=== PATIENT | male | born 1970 | race Caucasian/White ===

== ENCOUNTER 2020-02-29 09:28 | Outpatient (REF) | payer OTHER, SELFPAY ==
[2020-02-29 11:56] LABS: Alanine Aminotransferase 21 U/L (0-40); Albumin Level 4.9 g/dL (3.5-5.0); Alkaline Phosphatase 42 U/L (39-117); Anion Gap 14 (12-20); Aspartate Amino Transferase 14 U/L (5-37); Bilirubin Total 0.5 mg/dL (0.0-1.0); Blood Urea Nitrogen 29 mg/dL (9-16); Calcium 9.6 mg/dL (8.4-10.2); Carbon Dioxide 26 mmol/L (22-29); Chloride 106 mmol/L (96-108); Cholesterol 138 mg/dL; Estimated Glomerular Filt Rate 47; Glucose Fasting 103 mg/dL (60-99); HDL Cholesterol 33 mg/dL; LDL Cholesterol Calculated 62 mg/dl; Potassium 5.2 mmol/l (3.3-5.1); Sodium 141 mmol/L (135-145); Total Protein 7.6 g/dL (6.5-8.0); Triglycerides 217 mg/dL
[2020-02-29 11:59] LABS: Estimated Average Glucose 117 mg/dL; Hemoglobin A1c % 5.7 %
== END 2020-02-29 09:29 | disposition home or self-care (01) ==
LOC: HO.HMGCLDS 09:28
PROVIDERS: PCP Nurse Practitioner Family; Visit Provider Nurse Practitioner Family
DX: E11.9 Type 2 diabetes mellitus without complications (principal); E03.9 Hypothyroidism, unspecified
CPT/HCPCS: 36415; 80053; 80061; 83036; 84443

== ENCOUNTER 2020-03-07 08:46 | Outpatient (REF) | payer OTHER, SELFPAY ==
[2020-03-07 11:27] LABS: Anion Gap 16 (12-20); Carbon Dioxide 23 mmol/L (22-29); Chloride 107 mmol/L (96-108); Potassium 4.5 mmol/l (3.3-5.1); Sodium 141 mmol/L (135-145)
== END 2020-03-07 08:47 | disposition home or self-care (01) ==
LOC: HO.HMGCLDS 08:46
PROVIDERS: PCP Nurse Practitioner Family; Visit Provider Nurse Practitioner Family
DX: E87.5 Hyperkalemia (principal)
CPT/HCPCS: 80051

== ENCOUNTER → 2020-08-08 07:57 | Outpatient (BNVA) | payer SELFPAY | PROVIDERS: PCP Nurse Practitioner Family; Visit Provider Internal Medicine | DX: Z02.79 Encounter for issue of other medical certificate (principal) ==

== ENCOUNTER 2020-09-26 09:34 | Outpatient (REF) | payer OTHER, SELFPAY ==
[2020-09-26 12:08] LABS: Alanine Aminotransferase 37 U/L (0-40); Albumin Level 4.9 g/dL (3.5-5.0); Alkaline Phosphatase 59 U/L (39-117); Anion Gap 13 (12-20); Aspartate Amino Transferase 20 U/L (5-37); Bilirubin Total 0.8 mg/dL (0.0-1.0); Blood Urea Nitrogen 28 mg/dL (9-16); Carbon Dioxide 28 mmol/L (22-29); Chloride 102 mmol/L (96-108); Cholesterol 191 mg/dL; Estimated Glomerular Filt Rate 51; Glucose Fasting 94 mg/dL (60-99); HDL Cholesterol 41 mg/dL; LDL Cholesterol Calculated 90 mg/dl; Potassium 5.4 mmol/L (3.3-5.1); Sodium 138 mmol/L (135-145); Total Protein 7.7 g/dL (6.5-8.0); Triglycerides 302 mg/dL
[2020-09-26 12:09] LABS: TSH reflex Free T4 2.52 uIU/mL (0.32-4.0)
[2020-09-26 12:35] LABS: Estimated Average Glucose 128 mg/dL; Hemoglobin A1c % 6.1 %
[2020-09-26 12:48] LABS: Creatinine Urine 118.52 mg/dL; Microalbum/Creatinine Ratio Ur 6.7 ug/mg cr
== END 2020-09-26 09:35 | disposition home or self-care (01) ==
LOC: HO.HMGCLDS 09:34
PROVIDERS: PCP Nurse Practitioner Family; Visit Provider Nurse Practitioner Family
DX: E11.9 Type 2 diabetes mellitus without complications (principal); I10 Essential (primary) hypertension; Z80.42 Family history of malignant neoplasm of prostate
CPT/HCPCS: 36415; 80053; 80061; 82043; 83036; 84153; 84443

== ENCOUNTER → 2021-08-07 09:54 | Outpatient (BNVA) | payer SELFPAY | PROVIDERS: PCP Nurse Practitioner Family; Visit Provider Internal Medicine | DX: Z02.79 Encounter for issue of other medical certificate (principal) ==

== ENCOUNTER → 2021-08-16 10:03 | Outpatient (BNVA) | payer OTHER, SELFPAY | PROVIDERS: PCP Nurse Practitioner Family; Visit Provider Internal Medicine | DX: Z01.810 Encounter for preprocedural cardiovascular examination (principal); I44.1 Atrioventricular block, second degree; I10 Essential (primary) hypertension | CPT/HCPCS: 93005; 99202 ==

== ENCOUNTER 2021-09-20 11:53 | Outpatient (REF) | payer OTHER, SELFPAY ==
[2021-09-20 14:05] LABS: Alanine Aminotransferase 29 U/L (0-40); Albumin Level 4.6 g/dL (3.5-5.0); Alkaline Phosphatase 66 U/L (39-117); Anion Gap 13 (12-20); Aspartate Amino Transferase 17 U/L (5-37); Bilirubin Total 0.7 mg/dL (0.0-1.0); Blood Urea Nitrogen 25 mg/dL (9-16); Calcium 9.7 mg/dL (8.4-10.2); Carbon Dioxide 27 mmol/L (22-29); Chloride 103 mmol/L (96-108); Cholesterol 135 mg/dL; Estimated Glomerular Filt Rate 48; Glucose Fasting 97 mg/dL (60-99); HDL Cholesterol 31 mg/dL; LDL Cholesterol Calculated 46 mg/dl; Potassium 4.7 mmol/L (3.3-5.1); Sodium 138 mmol/L (135-145); Total Protein 7.5 g/dL (6.5-8.0); Triglycerides 293 mg/dL
[2021-09-20 14:08] LABS: Estimated Average Glucose 126 mg/dL; Hemoglobin A1C 163.9103 umol/L
[2021-09-20 14:25] LABS: Creatinine Urine 167.94 mg/dL; Microalbum/Creatinine Ratio Ur 5.9 ug/mg cr
[2021-09-20 14:26] LABS: Appearance Urine CLEAR; Color Urine YELLOW; Glucose Urine UA NEG (NEG); Leukocyte Esterase Urine NEG (NEG); Nitrite Urine NEG (NEG); PH 6.5 (5.0-8.0); Urine Blood NEG (NEG); Urine Ketones NEG (NEG); Urine Protein NEG (NEG-TRACE)
[2021-09-20 14:28] LABS: Prostate Specific Antigen Scr 0.66 ng/mL (<0.05-4.0); TSH reflex Free T4 2.17 uIU/mL (0.32-4.0)
== END 2021-09-20 11:54 | disposition home or self-care (01) ==
LOC: HO.HMGCLDS 11:53
PROVIDERS: Visit Provider Nurse Practitioner Family
DX: Z00.00 Encounter for general adult medical examination without abnormal findings (principal); E11.9 Type 2 diabetes mellitus without complications; Z13.220 Encounter for screening for lipoid disorders; Z12.5 Encounter for screening for malignant neoplasm of prostate; Z13.29 Encounter for screening for other suspected endocrine disorder; Z80.42 Family history of malignant neoplasm of prostate
CPT/HCPCS: 36415; 80053; 80061; 81003; 82043; 83036; 84153; 84443

== ENCOUNTER → 2021-10-06 09:30 | Outpatient (REF) | payer OTHER, SELFPAY ==
--- NOTE | 2021-10-06 09:34 | CA_ITS ---
Acquisition Time: 2021-10-06 10:46:31 Total Exercise Time: 00:09:29 Test Indications: ABN EKG, PREOP Medications: SEE CHART Protocol: JANI Max HR: 157 BPM 92% of Pred: 170 BPM Max BP: 172/082 mmHG Max Work Load: 10.8 METS Exercise stress test with exercise 9 min 29 sec of Jani protocol, achieving 92% MPHR, 10.8 METS, without anginal symptoms, with report of knee discomfort, with normotensive and normal chronotropic response to exercise, without EKG changes meeting criteria for ischemia. Test reviewed with Dr Morales. Referred By: Tio López Overread By: ALLEGRA LAWRENCE
--- NOTE | 2021-10-06 09:34 | HM_ITS ---
Conclusion: 1. Patient was monitored for total period of 3 days and 5 hours 2. Baseline was normal sinus rhythm with average heart of 86 beats per minute 3. No significant pauses or bradycardia noted 4. Couple of episodes of Mobitz type 1 second-degree AV block noted 5. Very rare ectopy 6. No patient reported symptoms MTDD
--- NOTE | 2021-10-06 09:34 | CA_ITS ---
Transthoracic Echocardiogram Patient (Last, First, Middle): Francisco Grewal, Gender: Male Date of : 1970 Age: 51 Procedure Date: 10/06/2021 Procedure Type: Transthoracic Echocardiogram Location: OP Height: 175.26 cm Weight: 108.86 kg BSA: 2.23 m2 Heart Rate: bpm BP: 130 / 74 mmHg [place] Supervisor: CLARENCE Hernandez MD: Tio Lpóez MD Petrographer: Corky Morales MD Symptoms: I44.1 - Atrioventricular block, second degree Study Quality: Good ECG Rhythm: Sinus Conclusions: - 1. Normal LV systolic function with mild LVH with grade 1 diastolic dysfunction with possible basal inferior wall motion abnormality 2. Normal cardiac valvular Doppler is 3. Mildly dilated ascending aorta at 3.7 cm 4. Normal RV systolic pressure 5. No gross pericardial effusion Findings Left Ventricle Normal left ventricular size and systolic function. There is mildly increased left ventricular wall thickness. The visually estimated ejection fraction is between 55-60%. Spectral Doppler is indicative of an impaired relaxation filling pattern. E/E prime ratio is <8, consistent with normal filling pressures. Evidence suggests grade I (mild) diastolic dysfunction. Wall Motion Rest Echo Findings The basal inferior segment is hypokinetic. All other scored wall segments showed normal motion. Right Ventricle Normal right ventricular cavity size and systolic function. Atria The left atrium is likely dilated. There is no evidence of interatrial shunt. The right atrium is normal in size. Aortic Valve There is mild calcification of the aortic valve. There is no aortic valve stenosis. There is no aortic valve regurgitation. Mitral Valve Normal mitral valve structure and function. There is trace mitral valve regurgitation. There is no mitral valve stenosis. Pulmonic Valve The pulmonic valve was not well visualized. Tricuspid Valve Likely normal tricuspid valve structure and function. There is trace tricuspid valve regurgitation. The right ventricular systolic pressure is normal. The right ventricular systolic pressure is 27 mmHg. Normal right atrial pressure. There is no evidence of pulmonary hypertension. Great Vessels The pulmonary artery was not well visualized. There is mild dilatation of the ascending aorta measuring 3.70 cm. Venous The inferior vena cava is normal in size and collapses greater than 50% with inspiration. Pericardium/Pleural There is no evidence of pericardial effusion. Prior Study Comparison No prior study available for comparison. Measurements 2D Linear Measurements IVSd: 1.20 0.6-0.9/0.6-1.0 cm LVIDd: 5.08 3.9-5.3/4.2-5.9 cm LVIDd Index: 2.28 2.4-3.2/2.2-3.1 cm/m2 LVIDs: 3.55 2.0-3.6 cm LVPWd: 1.15 0.7-1.1 cm LA Diam: 3.90 2.7-3.8/3.0-4.0 cm LAIDs Index: 1.75 1.5-2.3 cm/m2 LV Mass: 290.24 67-162/88-224 g LV Mass Index: 130.15 43-95/49-115 g/m2 LVOT Diam: 2.20 3.0+(-)1.3 cm 2D Systolic Function EF 4C: 62.00 >55% EF 2C: 52.20 >55% EF BiP: 57.60 >55% Mitral Valve MV Pk E: 0.57 MV PK A: 0.75 MV Decel Time: 217.00 E/A: 0.80 E'Lateral: 7.51 E'Medial: 6.20 E/E' Med: 9.30 E/E' Lat: 7.60 PHT: 63.00 MVA PHT: 3.49 Decel [place]: 2.65 Aortic Valve AoV Pk Ko: 1.56 AoV Mn Ko: 1.11 AoV VTI: 0.28 AoV Pk Grad: 10.00 Aov Mn Grad: 5.00 RODNEY Cont.VTI: 2.49 LVOT LVOT Pk Ko: 1.04 LVOT Mn Ko: 0.64 LVOT VTI: 0.19 LVOT Pk Grad: 4.00 LVOT Mn Grad: 2.00 LVOT Diam: 2.20 LVOT Area: 3.80 Diastolic Function MV Pk E: 0.57 MV Pk A: 0.75 E/A: 0.80 E'Medial: 6.20 E/E' Med: 9.30 E' Laterial: 7.51 E/E' Lat: 7.60 Right Ventricle TAPSE (mm): 22.30 TVS' Ko: 12.00 Tricuspid Valve TR Pk Ko: 2.19 TR Pk Grad: 19.00 RA Press: 8.00 RVSP: 27.00 Great Vessels Aorta Sinus of Valsalva: 3.51 2.0-3.[address] [place]: 3.12 1.7-3.4 cm Ao Asc: 3.70 2.1-3.4 cm Ao Arch: 3.10 Updated in Other Vendor System with Status of Final Corky Morales MD electronically signed on 10/07/2021 2:36:55 PM with status of Final
== END ==
LOC: HO.CARD 09:30
PROVIDERS: PCP Nurse Practitioner Family; Visit Provider Internal Medicine
DX: I44.1 Atrioventricular block, second degree (principal)
CPT/HCPCS: 93017; 93242; 93306

== ENCOUNTER → 2021-10-19 10:03 | Outpatient (BNVA) | payer OTHER, SELFPAY | PROVIDERS: PCP Nurse Practitioner Family; Referring Provider Nurse Practitioner Family; Visit Provider Internal Medicine | DX: Z01.810 Encounter for preprocedural cardiovascular examination (principal); I44.1 Atrioventricular block, second degree; I10 Essential (primary) hypertension; Z79.899 Other long term (current) drug therapy | CPT/HCPCS: 99212 ==

== ENCOUNTER 2022-02-22 09:34 | Outpatient (REF) | payer OTHER, SELFPAY ==
[2022-02-22 11:38] LABS: MANUAL DIFF FLAG NO
[2022-02-22 11:43] LABS: Basophils Percent Auto 0.3 % (0-2); Eosinophils Absolute Auto 0.2 X10*3/uL (0.0-0.4); Eosinophils Percent Auto 2.7 % (0-4); Hemoglobin 14.7 g/dl (14.0-18.0); Imm Gran Abs Auto 0.03 X10*3/uL (0.00-0.03); Imm Gran Pct Auto 0.4 % (0.0-0.4); Lymphocytes Absolute Auto 1.8 X10*3/uL (1.2-4.9); Lymphocytes Percent Auto 22.3 % (20-40); Mean Corpuscular HGB Conc 33.4 g/dl (31.0-36.0); Mean Corpuscular Hemoglobin 28.3 pg (27.0-33.0); Mean Corpuscular Volume 84.6 fL (80.0-98.0); Mean Platelet Volume 9.5 fL (9.4-12.4); Monocytes Absolute Auto 1.2 X10*3/uL (0.1-1.2); Monocytes Percent Auto 14.5 % (2-11); Neutrophils Absolute Auto 4.7 x10*3/uL (2.0-8.3); Neutrophils Percent Auto 59.8 % (45-73); Platelet Count 210 X10*3/uL (160-400); Red Cell Distribution Width 12.6 % (11.0-16.0); White Blood Count 7.9 X10*3/uL (4.8-10.8)
[2022-02-22 11:57] LABS: Appearance Urine Clear; Color Urine Yellow; Glucose Urine UA Negative (Negative); Leukocyte Esterase Urine Negative (Negative); Nitrite Urine Negative (Negative); PH 6.5 (5.0-9.0); Urine Blood Negative (Negative); Urine Ketones Negative (Negative); Urine Protein Negative (Neg-Trace)
[2022-02-22 11:59] LABS: Estimated Average Glucose 134 mg/dL; Hemoglobin A1c % 6.3 %
[2022-02-22 12:07] LABS: Alanine Aminotransferase 47 U/L (0-40); Albumin Level 4.7 g/dL (3.5-5.0); Alkaline Phosphatase 62 U/L (39-117); Anion Gap 15 (12-20); Aspartate Amino Transferase 23 U/L (5-37); Bilirubin Total 0.5 mg/dL (0.0-1.0); Blood Urea Nitrogen 21 mg/dL (9-16); Calcium 9.4 mg/dL (8.4-10.2); Carbon Dioxide 27 mmol/L (22-29); Chloride 102 mmol/L (96-108); Cholesterol 159 mg/dL; Estimated Glomerular Filt Rate 56; Glucose Fasting 118 mg/dL (60-99); HDL Cholesterol 33 mg/dL; Potassium 4.5 mmol/L (3.3-5.1); Sodium 139 mmol/L (135-145); Total Protein 7.3 g/dL (6.5-8.0); Triglycerides 424 mg/dL
[2022-02-22 12:31] LABS: TSH reflex Free T4 1.26 uIU/mL (0.32-4.0)
== END 2022-02-22 09:35 | disposition home or self-care (01) ==
LOC: HO.HMGCLDS 09:34
PROVIDERS: PCP Nurse Practitioner Family; Visit Provider Nurse Practitioner Family
DX: E11.9 Type 2 diabetes mellitus without complications (principal)
CPT/HCPCS: 36415; 80053; 80061; 81003; 83036; 84443; 85025

== ENCOUNTER → 2022-06-27 08:52 | Outpatient (BNVA) | payer OTHER, SELFPAY | PROVIDERS: PCP Nurse Practitioner Family; Referring Provider Nurse Practitioner Family; Visit Provider Internal Medicine | DX: I44.1 Atrioventricular block, second degree (principal); I10 Essential (primary) hypertension | CPT/HCPCS: 93005; 99212 ==

== ENCOUNTER 2022-11-22 11:47 | Outpatient (REF) | payer OTHER, SELFPAY ==
[2022-11-22 13:51] LABS: MANUAL DIFF FLAG NO
[2022-11-22 13:56] LABS: Appearance Urine Clear; Color Urine Yellow; Glucose Urine UA Negative (Negative); Leukocyte Esterase Urine Negative (Negative); Nitrite Urine Negative (Negative); Specific Gravity - Urine 1.015 (1.005-1.025); Urine Blood Negative (Negative); Urine Ketones Negative (Negative); Urine Protein Negative (Neg-Trace)
[2022-11-22 14:07] LABS: Basophils Percent Auto 0.4 % (0-2); Eosinophils Absolute Auto 0.2 X10*3/uL (0.0-0.4); Eosinophils Percent Auto 2.5 % (0-4); Hemoglobin 14.4 g/dl (14.0-18.0); Imm Gran Abs Auto 0.04 X10*3/uL (0.00-0.03); Imm Gran Pct Auto 0.5 % (0.0-0.4); Lymphocytes Absolute Auto 1.8 X10*3/uL (1.2-4.9); Lymphocytes Percent Auto 24.2 % (20-40); Mean Corpuscular HGB Conc 33.5 g/dl (31.0-36.0); Mean Corpuscular Hemoglobin 28.6 pg (27.0-33.0); Mean Corpuscular Volume 85.5 fL (80.0-98.0); Mean Platelet Volume 9.9 fL (9.4-12.4); Monocytes Absolute Auto 0.7 X10*3/uL (0.1-1.2); Monocytes Percent Auto 9.1 % (2-11); Neutrophils Absolute Auto 4.7 x10*3/uL (2.0-8.3); Neutrophils Percent Auto 63.3 % (45-73); Platelet Count 222 X10*3/uL (160-400); Red Blood Count 5.03 X10*6/uL (4.60-5.80); Red Cell Distribution Width 13.2 % (11.0-16.0); White Blood Count 7.5 X10*3/uL (4.8-10.8)
[2022-11-22 14:22] LABS: Estimated Average Glucose 131 mg/dL; Hemoglobin A1c % 6.2 %
[2022-11-22 14:35] LABS: Creatinine Urine 101.43 mg/dL; Microalbum/Creatinine Ratio Ur 9.8 ug/mg cr
[2022-11-22 14:45] LABS: Alanine Aminotransferase 40 U/L (0-40); Albumin Level 4.5 g/dL (3.5-5.0); Alkaline Phosphatase 54 U/L (39-117); Anion Gap 14 (12-20); Aspartate Amino Transferase 22 U/L (5-37); Bilirubin Total 0.8 mg/dL (0.0-1.0); Blood Urea Nitrogen 21 mg/dL (9-16); Calcium 10.1 mg/dL (8.4-10.2); Carbon Dioxide 25 mmol/L (22-29); Chloride 103 mmol/L (96-108); Cholesterol 196 mg/dL; Estimated Glomerular Filt Rate > 60; Glucose Fasting 107 mg/dL (60-99); HDL Cholesterol 31 mg/dL; Potassium 4.1 mmol/L (3.3-5.1); Sodium 138 mmol/L (135-145); TSH reflex Free T4 2.04 uIU/mL (0.32-4.0); Total Protein 7.2 g/dL (6.5-8.0); Triglycerides 638 mg/dL
[2022-11-22 14:54] LABS: Prostate Specific Antigen Scr 0.85 ng/mL (<0.05-4.0)
== END 2022-11-22 11:48 | disposition home or self-care (01) ==
LOC: HO.HMGCLDS 11:47
PROVIDERS: PCP Nurse Practitioner Family; Visit Provider Nurse Practitioner Family
DX: E11.9 Type 2 diabetes mellitus without complications (principal); I10 Essential (primary) hypertension; Z12.5 Encounter for screening for malignant neoplasm of prostate
CPT/HCPCS: 36415; 80053; 80061; 81003; 82043; 83036; 84153; 84443; 85025

== ENCOUNTER 2023-04-23 07:25 | Day surgery (SDC) | payer OTHER, SELFPAY ==
[2023-04-17 14:33] VITALS: BMI 37.4
--- NOTE | 2023-04-22 09:01 | P.CONAN_ITS ---
Documented by User: Vashti Jovel NP 04/22/23 09:03 HPI - Anesthesia Eval Consult details Narrative: 52yo M for Colonoscopy [facility] [place] cardiology eval 06/2022 for preop shoulder optimized PMFSH Active Problems Active Problems: All Active Problems (Updated 04/17/23 @ 14:33 by Clare Hawthorne RN) Prostate cancer screening (Acute) Screening for colon cancer (Acute) Physical exam (Acute) Preoperative cardiovascular examination (Acute) Second degree heart block (Acute) Family hx of prostate cancer (Acute) Diabetes (Acute) Hypertension (Acute) Hyperkalemia (Acute) Essential hypertension (Acute) Past Medical History Medical History (Updated 04/17/23 @ 14:33 by Clare Hawthorne RN) Diabetes Hypothyroid Elevated cholesterol Fatty liver CKD (chronic kidney disease) Essential hypertension Family History Family History Father Depression Cancer of prostate Mental health disorder Mother Cancer Leukemia Maternal Grandfather No problems noted. Maternal Grandmother No problems noted. Paternal Grandfather No problems noted. Paternal Grandmother No problems noted. 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 [employer] Current occupational exposures/hazards: Yes Cognitive needs: No Hearing needs: No Vision needs: No Meds Allergies Allergy/AdvReac Type Severity Reaction Status Date / Time No Known Allergies Allergy Verified 09/06/22 14:44 Home Medications Medication Instructions Recorded Confirmed Last Taken Type carvedilol 12.5 mg tablet 12.5 mg PO BID 08/16/21 04/17/23 Unknown History Exam Height,Weight and Vital Signs: Height 5 ft 9 in Weight 114.759 kg Pertinent Lab Results Pertinent Lab Results: Laboratory Tests 11/22/22 11:53 WBC 7.5 Hgb 14.4 Hct 43.0 Plt Count 222 Sodium 138 Potassium 4.1 Chloride 103 Carbon Dioxide 25 BUN 21 H Creatinine 1.24 Narrative Narrative: EKG 06/2022 sinus rhythm at 84/Min; no significant ST-T changes and otherwise unremarkable. Normal [place] and corrected QT ECHO 2021 Conclusions: - 1. Normal LV systolic function with mild LVH with grade 1 diastolic dysfunction with possible basal inferior wall motion abnormality 2. Normal cardiac valvular Doppler is 3. Mildly dilated ascending aorta at 3.7 cm 4. Normal RV systolic pressure 5. No gross pericardial effusion Assessment and Plan Assessment Anesthesia Assessment: Chart Reviewed Documented by User: Quique Hidalgo MD 04/23/23 08:07 [facility] Past Medical History Medical History (Updated 04/17/23 @ 14:33 by Clare Hawthorne RN) Diabetes Hypothyroid Elevated cholesterol Fatty liver CKD (chronic kidney disease) Essential hypertension Family History Family History Father Depression Cancer of prostate Mental health disorder Mother Cancer Leukemia Maternal Grandfather No problems noted. Maternal Grandmother No problems noted. Paternal Grandfather No problems noted. Paternal Grandmother No problems noted. 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 Current occupational exposures/hazards: Yes Cognitive needs: No Hearing needs: No Vision needs: No Meds Allergies Allergy/AdvReac Type Severity Reaction Status Date / Time No Known Allergies Allergy Verified 09/06/22 14:44 Home Medications Medication Instructions Recorded Confirmed Last Taken Type carvedilol 12.5 mg tablet 12.5 mg PO BID 08/16/21 04/17/23 Unknown History Exam Airway Mallampati Class: III TM Dist: >3cm Neck ROM: Full Assessment and Plan Assessment Anesthesia Assessment: Anesthesia Plan Discussed Final Anesthetic Review Family History of Problems with Anesthesia: No History of Problems with Anesthesia: No NPO: Yes ASA Class: III Final Preanesthetic Review: No Changes in Pt Med Stat, Meds/Allgs Chart Reviewed, Consent Obtained/Reviewed and Anes Risks/Benef Reviewed Patient Risk: Intermediate Procedure Risk: Low Anesthetic Plan Anesthetic Plan: MAC: Disposition: Standard PACU
--- NOTE | 2023-04-23 08:03 | MHC.SHP ---
Pre-Procedural Eval Section A Date of Service: 04/23/23 Section B Chief Complaint: screening Relevant Family History (Specify if Yes): No Relevant Social History: None Present Medications: see Short Stay Collaborative assessment Medical History: Significant History (Diabetes Hypothyroid Elevated cholesterol Fatty liver CKD (chronic kidney disease) Essential hypertension) History of Previous Operations: Relevant previous surgery/procedure and date(s) (nasla surgery) Allergies: Allergies Allergy/AdvReac Type Severity Reaction Status Date / Time No Known Allergies Allergy Verified 09/06/22 14:44 Review of Systems Sugical H&P ROS: Negative: Constitution, Cardiovascular, Respiratory, Neurological, Psychiatric, Hem-Onc, Allergic/Immunologic, Gastrointestinal, Genitourinary, Musculoskeletal, Integumentary, Endocrine and Eyes/Ears/Nose/Throat Exam Surgical H&P Exam: Normal: HEENT, Normal: Heart, Normal: Lungs, Normal: Extremities, Normal: Abdomen, Normal: Skin and Normal: Neurological Plan Diagnosis/Plan: Unchanged I have reviewed the history and physical and performed a pertinent physical examination on my patient. No changes have occurred unless specified. Time Spent With Patient Time: Total time managing care of this patient today ____ minutes.
[2023-04-23 08:10] VITALS: BP 153/106; PULSE 97; RESP 18; TEMP 36.7; O2SAT 97
[2023-04-23] MEDS: Lactated Ringers 1,000 ML 100 ML IVCONT (08:20)
--- NOTE | 2023-04-23 08:37 | P.OP_ITS ---
Operative Note Operative Note Date of Service: 04/23/23 Narrative: Operative Information Procedure Description: Colonoscopy Indication: screening Anesthesia: MAC COLONOSCOPY Instrument: Olympus variable stiffness pediatric scope 190L Colonoscopy Monitoring: Vital signs and clinical assessment, continuous EKG monitoring, Pulse oximetry, Carbon Dioxide monitoring and blood pressure monitoring were done throughout the procedure. Colon withdrawal time was 6 minutes. Procedure: The patient was placed in the left lateral decubitis position and pre-procedure medications were administered. After a digital rectal examination of the ano-rectum, the video colonoscope was inserted into the rectum and advanced through the colon to the cecum/TI. The colonoscope was slowly withdrawn in a retrograde panoramic fashion and the colon mucosa was carefully examined including a retroflexed view of the rectum. Findings and interventions are described below. Procedure Difficulty: easy Findings: Terminal Ileum-normal Cecum:normal Ascending Colon: normal Transverse Colon -normal Descending Colon:normal Sigmoid Colon: moderate diverticulosis Rectum: Retroflexion with medium sized internal hemorrhoids, grade I Anorectum - normal Colon preparation: [place] Bowel Preparation Scale Right colon; 3 Transverse colon: 3 Left colon; 3 (0 = Unprepared colon segment with mucosa not seen due to solid stool that cannot be cleared. 1 = Portion of mucosa of the colon segment seen, but other areas of the colon segment not well seen due to staining, residual stool and/or opaque liquid. 2 = Minor amount of residual staining, small fragments of stool and/or opaque liquid, but mucosa of colon segment seen well. 3 = Entire mucosa of colon segment seen well with no residual staining, small fragments of stool or opaque liquid) Impression and Post Procedure Diagnosis: internal hemorrhoids diverticular disease Plan: High fiber diet leaflet Avoid straining at stool, epsom salts and sitz bath, anusol supps or cream Repeat Colonoscopy in 10 years or earlier if clinically indicated Above findings were reviewed with the patient and relevant handouts were provided if indicated.
[2023-04-23 08:40] VITALS: BP 143/82; PULSE 106; RESP 16; TEMP 36.6; O2SAT 97
[2023-04-23 08:55] VITALS: BP 134/82; PULSE 106; RESP 14; TEMP 36.6; O2SAT 98
[2023-04-23 09:10] VITALS: BP 147/95; PULSE 100; RESP 16; TEMP 37.1; O2SAT 94
== END 2023-04-23 09:50 | disposition home or self-care (01) ==
PROVIDERS: PCP Nurse Practitioner Family; Visit Provider Internal Medicine Gastroenterology
PROC: 0DJD8ZZ Inspection of Lower Intestinal Tract, Via Natural or Artificial Opening Endoscopic (ICD-10-PCS; CPT 45378; principal; 2023-04-23 08:30)
DX: Z12.11 Encounter for screening for malignant neoplasm of colon (principal); K57.30 Diverticulosis of large intestine without perforation or abscess without bleeding; K64.0 First degree hemorrhoids; K76.0 Fatty (change of) liver, not elsewhere classified; E03.9 Hypothyroidism, unspecified; E78.00 Pure hypercholesterolemia, unspecified; E11.22 Type 2 diabetes mellitus with diabetic chronic kidney disease; I12.9 Hypertensive chronic kidney disease with stage 1 through stage 4 chronic kidney disease, or unspecified chronic kidney disease; N18.9 Chronic kidney disease, unspecified; Z79.899 Other long term (current) drug therapy
CPT/HCPCS: 45378; J2704

== ENCOUNTER → 2023-04-23 07:25 | Outpatient (BNV) | payer OTHER, SELFPAY | PROVIDERS: PCP Nurse Practitioner Family; Visit Provider Internal Medicine Gastroenterology | DX: Z12.11 Encounter for screening for malignant neoplasm of colon (principal); K57.90 Diverticulosis of intestine, part unspecified, without perforation or abscess without bleeding; K64.8 Other hemorrhoids | CPT/HCPCS: 45378 ==

== ENCOUNTER 2023-05-06 13:30 | Outpatient (AMB) | payer OTHER, SELFPAY ==
--- NOTE | 2023-05-06 13:34 | A.OFFPC_ITS ---
Vital Signs 05/06/23 13:38 Height 5 ft 9 in Weight 256 lb BMI 37.8 BP 130/80 Blood Pressure Location Rt brachial Position Sitting Pulse 83 Pulse Source Pulse Oximeter Pulse Oximetry (%) 98 Oxygen Delivery Method Room Air Intake Visit Reasons: PE Intake Note: last colonoscopy:04/23/2023 at [facility] [place] last eye exam:01/2023 Allergies No Known Allergies Allergy (Verified 09/06/22 14:44) Medication List - Last Reconciled 05/06/23 by JORDAN Dunn amlodipine 10 mg PO DAILY atorvastatin 80 mg PO DAILY bisacodyl (Dulcolax (bisacodyl)) 10 mg (2 x 5 mg) PO ONCE 1 day carvedilol 12.5 mg PO BID cholecalciferol (vitamin D3) 50 mcg PO DAILY levothyroxine 100 mcg PO DAILY losartan 100 mg PO DAILY omega-3 acid ethyl esters 2 caps PO BID 90 days spironolactone 50 mg (2 x 25 mg) PO DAILY 90 days Tobacco use date assessed: 09/06/22 Dental Screening Dental Screen Date: 05/06/23 Did you have a dental visit in the last 12 months?: No Did you have a dental problem in the last 6 months where you did not have access to dental care?: No Was dental information given to patient?: Patient declined HPI PE HPI Details Pt is here for a PE. Will order labs. Colon screen is up to date. PSA is up to date. Denies dribbling with urination, weak stream, and incomplete bladder emptying. Pt is a diabetic, on an ARB and a statin. A1C in office today is 6.8. Microalbumin is up to date. Denies polydipsia and neuropathy, reports polyuria. Pt denies any signs and symptoms of hypoglycemia and does know how to correct it. Pt does not check his blood sugar. He is not interested in starting any diabetes medications. Eye exam is up to date. Pt is following up with nephrology. [facility] Medical History Diabetes Hypothyroid Elevated cholesterol Fatty liver CKD (chronic kidney disease) Essential hypertension Surgical History History of nasal surgery Family History Father Depression Cancer of prostate Mental health disorder Mother Cancer Leukemia Maternal Grandfather No problems noted. Maternal Grandmother No problems noted. Paternal Grandfather No problems noted. Paternal Grandmother No problems noted. 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: [employer] Current occupational exposures/hazards: Yes Cognitive needs: No Hearing needs: No Vision needs: No Questionnaire PHQ-9 Over the last 2 weeks, how often have you been bothered by any of the following problems? 1. Little interest or pleasure in doing things: not at all 2. Feeling down, depressed, or hopeless: not at all 3. Trouble falling or staying asleep, or sleeping too much: not at all 4. Feeling tired or having little energy: several days 5. Poor appetite or overeating: several days 6. Feeling bad about yourself - or that you are a failure or have let yourself or your family down: not at all 7. Trouble concentrating on things, such as reading the newspaper or watching television: not at all 8. Moving or speaking so slowly that other people could have noticed. Or the opposite - being so fidgety or restless that you have been moving around a lot more than usual: not at all 9. Thoughts that you would be better off or of hurting yourself in some way: not at all Total score: 2 Depression Screening Interpretation: Negative Depression Screening Done: Yes 30742 - PHQ-9 Billing: Yes Source: Developed by Drs. Timothy Ibarra, Guerda Calderon, Marcos Mcgregor and colleagues, with an educational titi from [employer]. Thrive Questionnaire Date Thrive assessed: 05/06/23 I am a: Patient What is your living situation today?: I have a steady place to live Within the past 12 months, did the food you bought not last and you didn't have the money to get more?: Never true Within the past 12 months, did you worry whether your food would run out before you got money to buy more?: Never true Do you have trouble paying for medicines?: No Do you have trouble getting transportation to medical appointments?: No Do you have trouble paying your heating and electricity bill?: No Do you have trouble taking care of your child, family member or friend?: No Do you have trouble with day-to-day activities such as bathing, preparing meals, shopping, managing finances, etc.?: No Are you currently unemployed and looking for a job?: No Are you interested in more education?: No AUDIT C Alcohol Use Questionnaire (AUDIT-C) 1. How often do you have a drink containing alcohol?: Never 3. How often do you have six or more drinks on one occasion?: Never Total Score: 0 Score Reviewed/Action Taken: No ROYER-7 AMB Questionnaire ROYER-7 Date ROYER - 7 assessed: 05/06/23 Feeling nervous, anxious, or on edge: 0 = Not at all Not being able to stop or control worryin = Not at all Worrying too much about different things: 0 = Not at all Trouble relaxin = Not at all Being so restless that it is hard to sit still: 0 = Not at all Becoming easily annoyed or irritable: 0 = Not at all Feeling afraid as if something awful might happen: 0 = Not at all Total ROYER-7 score (0-4 normal; 5-9 mild; 10-14 moderate; 15-21 severe): 0 Source: Developed by Drs. Timothy Ibarra, Guerda Calderon, Marcos Mcgregor and colleagues, with an educational titi from [employer]. ROYER-7 Assessment Billing ROYER-7 Assessment Tool: ROYER-7 Assessment 22336 Review of Systems Const Denies chills and Denies fever(s) Eyes Denies blurry vision ENT Denies vertigo, Denies dizziness and Denies sore throat Card Denies chest pain at rest, Denies chest pain with activity, Denies diaphoresis, Denies dyspnea and Denies dyspnea on exertion Resp Denies cough, Denies dyspnea, Denies dyspnea on exertion and Denies wheezing GI Denies abdominal pain, Denies melena, Denies hematochezia, Denies constipation, Denies diarrhea and Denies loose stools Denies hematuria Musc Denies numbness and Denies tingling Skin/Breast Denies lesions Neuro Denies vertigo, Denies dizziness, Denies numbness and Denies tingling Psych Denies anxiety, Denies depression, Denies homicidal ideation, Denies suicidal ideation and Denies other (substance abuse) Aller/Immun Denies wheezing Physical exam (Primary Care) Vital Signs: Last Vital Signs Pulse 83 05/06/23 13:38 BP 130/80 05/06/23 13:38 Pulse Ox 98 05/06/23 13:38 Oxygen Delivery Method Room Air 05/06/23 13:38 BMI result Body Mass Index 37.8 Tobacco/Smoking Status: Tobacco use Status Tobacco use date assessed 09/06/22 05/06/23 13:35 Patient Tobacco Use Status Never used Tobacco 05/06/23 13:35 e-Cigarette/Vaping Use Never Used 05/06/23 13:35 PHQ-9: PHQ-9 Score PHQ-9: Total score 2 05/06/23 14:32 Depression Screening Interpretation: Negative Thrive Assessment: Date of Thrive Assessment Date Thrive assessed 05/06/23 05/06/23 14:32 Const General: cooperative Nutritional Appearance: obese Orientation/consciousness: patient oriented x3 HENMT Head: Yes normal to inspection, Yes normocephalic and Yes atraumatic Ears: TM's normal bilaterally Eyes General: appearance normal, both eyes and all related structures Alignment and Position: alignment normal and position normal Neck Neck: Yes normal visual inspection and Yes no lymphadenopathy Thyroid: Thyroid normal Resp Effort & Inspection: normal respiratory effort Auscultation: clear to auscultation bilaterally Cardio Rate: regular rate Rhythm: regular rhythm Heart sounds: S1 normal heart sound present, S2 normal heart sound present and no murmurs GI Palpation (GI): Soft to palpation and nontender Auscultation: normal bowel sounds Male General Exam: Yes normal external exam Penis: normal penis Scrotum: scrotum normal, testes descended bilaterally and no inguinal hernias Testes: no testicular mass Skin Rashes: no rashes Neuro General: patient oriented x3, moves all extremities, no focal motor deficits and deep tendon reflexes 2+ bilaterally Romberg Test: Negative Psych Appearance: grossly normal Mental Status: mental status grossly normal Speech and movement: Normal speech and movement present Affect: normal affect Attitude: cooperative Thought process: Normal thought process present Thought content: Normal thought content present Insight: Good insight present (Psych) Judgement: Good judgement present (Psych) Office Procedures Flu Questionnaire Does the patient have a severe egg allergy?: No Does the patient have severe life threatening allergies?: No Does the patient have a fever or illness today?: No Has the patient ever had Guillain-[place] Syndrome?: No Has the patient ever had any past reaction to a flu shot?: No Results AMB Hemoglobin A1c AMB Hemoglobin A1c 6.8 % Last Edit by YING Dukes on 05/06/23 14 :09 Immunizations flu vacc [id number] 6mos up(PF) 60 mcg(15 mcgx4)/0.5 mL IM syringe Performing Provider: JORDAN Dunn [place] [facility] [place] [facility] Administered by: YING Dukes on 05/06/23 14:10 Dose Route Admin Location Dispensed Lot Number Expiration Date [facility] Form Raiser 0.5 mL IM Right Deltoid 0.5 mL [id number] 11/24/23 [id number] [email or web address] VIS Given Date VIS Provided VIS Publication Date 05/06/23 Single Vaccine 20 Eligibility Eligibility Date Funding Source Not VFC Eligible 05/06/23 Private pneumoc 20-svitlana conj-dip cr(PF) 0.5 mL IM syringe Performing Provider: JORDAN Dunn [place] [facility] [place] [facility] Administered by: YING Dukes on 05/06/23 14:09 Dose Route Admin Location Dispensed Lot Number Expiration Date [employer] Form Raiser 0.5 mL IM Left Deltoid 0.5 mL [id number] 01/24/24 [id number] [employer] [facility] VIS Given Date VIS Provided VIS Publication Date 05/06/23 Single Vaccine 21 Eligibility Eligibility Date Funding Source Not VFC Eligible 05/06/23 Private Results Reviewed Results Reviewed: Laboratory Last Values Hgb A1c (Clinic) 6.8 % (4.0-6.0) H 05/06/23 14:08 Assessment and Plan Assessment & Plan (1) Diabetes: Code(s): E11.9 - Type 2 diabetes mellitus without complications Plan: Labs ordered (2) Physical exam: Code(s): Z00.00 - Encounter for general adult medical examination without abnormal findings Plan: Labs ordered Plan The patient agreed to the use of a medical photographer for this encounter. Scribed for JORDAN Romo by Julieta Mckeon medical photographer, on 05/06/2023 at 13:45 EST. Orders: Orders Complete Blood Count Auto Diff Today E11.9 - Type 2 diabetes mellitus without complications, Z00.00 - Encounter for general adult medical examination without abnormal findings TSH reflex Free T4 Today E11.9 - Type 2 diabetes mellitus without complications, Z00.00 - Encounter for general adult medical examination without abnormal findings UA CC w/rflx Micro + Cult Today E11.9 - Type 2 diabetes mellitus without complications, Z00.00 - Encounter for general adult medical examination without abnormal findings Lipid Panel Today E11.9 - Type 2 diabetes mellitus without complications, Z00.00 - Encounter for general adult medical examination without abnormal findings AMB Hemoglobin A1c Today Z13.9 - Encounter for screening, unspecified Influenza [id number] Immunization Today Z23 - Encounter for immunization Comprehensive [place]. Panel Fast Today E11.9 - Type 2 diabetes mellitus without complications, Z00.00 - Encounter for general adult medical examination without abnormal findings Pneumococcal 20 Immunization Today Z23 - Encounter for immunization Coding Level of Care Code Est Pt Prev Care 40-64y(77896) Diagnoses Diabetes E11.9 Physical exam Z00.00 Additional Codes ROYER-7 Assessment Billing - ROYER-7 Assessment Tool: ROYER-7 Assessment 21995 ([id number])
[2023-05-06 13:38] VITALS: BP 130/80; PULSE 83; O2SAT 98; BMI 37.8
== END 2023-05-06 14:12 | disposition home or self-care (01) ==
PROVIDERS: PCP Nurse Practitioner Family; Visit Provider Nurse Practitioner Family
DX: Z00.00 Encounter for general adult medical examination without abnormal findings (principal); E11.9 Type 2 diabetes mellitus without complications; Z23 Encounter for immunization
CPT/HCPCS: 83036; 90471; 90472; 90677; 90686; 99396

== ENCOUNTER 2023-06-18 10:05 | Outpatient (AMB) | payer OTHER, SELFPAY ==
[2023-06-18 10:12] VITALS: BP 102/70; PULSE 84; O2SAT 96; BMI 37.5
--- NOTE | 2023-06-18 10:12 | HO.NEPHOV ---
HPI HPI Comments History of Present Illness Details I had the pleasure of seeing Francisco in follow-up of his chronic kidney disease and hypertension. He is known to have polycystic kidney disease. His blood pressure has been on the lower side and he has intermittent orthostatic symptoms. He does not have any flank pain, hematuria, renal stones, urinary infections, hematuria, pedal edema, nausea, vomiting, diarrhea, chest pain, shortness of breath, proximal nocturnal dyspnea or orthopnea. He is compliant with medications. He is unhappy about his weight. He is wondering whether his medications can be cut back. He does not take any nonsteroidal anti-inflammatories. All the systems were reviewed and were negative. [facility] Medical History Diabetes Hypothyroid Elevated cholesterol Fatty liver CKD (chronic kidney disease) Essential hypertension Surgical History History of nasal surgery Family History Father Depression Cancer of prostate Mental health disorder Mother Cancer Leukemia Maternal Grandfather No problems noted. Maternal Grandmother No problems noted. Paternal Grandfather No problems noted. Paternal Grandmother No problems noted. 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 Current occupational exposures/hazards: Yes Cognitive needs: No Hearing needs: No Vision needs: No Vital Signs 06/18/23 10:12 Height 5 ft 9 in Weight 254 lb 4 oz BMI 37.5 BP 102/70 Blood Pressure Location Lt brachial Position Sitting Pulse 84 Pulse Source Pulse Oximeter Pulse Oximetry (%) 96 Oxygen Delivery Method Room Air Physical Exam Vital Signs: Last Vital Signs Pulse 84 06/18/23 10:12 BP 102/70 06/18/23 10:12 Pulse Ox 96 06/18/23 10:12 Oxygen Delivery Method Room Air 06/18/23 10:12 BMI result Body Mass Index 37.5 Const General: comfortable and no acute distress Orientation/consciousness: patient oriented x3 HEENT Head: Yes normocephalic Mouth: Normal oral and palatal mucosa present Eyes EOM: EOMs intact bilaterally Neck Neck: Yes supple Resp Auscultation: clear to auscultation bilaterally Cardio Jugular venous distension: no JVD Rate: regular rate GI Palpation (GI): Soft to palpation Auscultation: normal bowel sounds General: Yes no CVA tenderness Back/Spine/Pelvis Back: no CVA tenderness Skin General skin exam: no rashes or lesions noted Neuro General: patient oriented x3 and moves all extremities Extrem General: Yes no pedal edema Assessment & Plan Assessment & Plan (1) Essential hypertension: Code(s): I10 - Essential (primary) hypertension (2) CKD (chronic kidney disease) stage 3, GFR 30-59 ml/min: Code(s): N18.30 - Chronic kidney disease, stage 3 unspecified Qualifiers: Chronic kidney disease stage 3 subtype: stage 3a (GFR 45-59) Qualified Code(s): N18.31 - Chronic kidney disease, stage 3a Plan Francisco has polycystic kidney disease. His blood pressure is currently on the lower side, with orthostatic symptoms. I reduced his amlodipine to 5 mg daily. If his blood pressure remains low normal even after this medication change, I intend to get him off amlodipine altogether. He has not had any blood work done over 6 months which I ordered. He does not take any nonsteroidal anti-inflammatories. He tries to maintain good hydration. He has not had any symptoms suggestive of any cyst rupture, cyst infection or renal stones. He needs to lose weight. He may need referral to weight management. He should remain well hydrated and minimize nonsteroidal anti-inflammatories. He may potentially be a candidate for tolvaptan in the future. He has not had any gene testing for PKD yet. All questions answered. Follow-up given. Orders: Orders Creatinine Today I10 - Essential (primary) hypertension, N18.30 - Chronic kidney disease, stage 3 unspecified Electrolytes Today I10 - Essential (primary) hypertension, N18.30 - Chronic kidney disease, stage 3 unspecified Blood Urea Nitrogen Today I10 - Essential (primary) hypertension, N18.30 - Chronic kidney disease, stage 3 unspecified Protein Creatinine Ratio, Ur Today I10 - Essential (primary) hypertension, N18.30 - Chronic kidney disease, stage 3 unspecified Medications: Refilled amlodipine 10 mg PO DAILY 90 tabs 3RF Coding Level of Care Code Est Pt Level 3 (96034) Diagnoses Essential hypertension I10 Stage 3a chronic kidney disease N18.31 Chronic kidney disease stage 3 subtype: stage 3a (GFR 45-59) Results Reviewed Nephrology Results: Hgb 14.4 g/dl (14.0-18.0) 11/22/22 WBC 7.5 X10*3/uL (4.8-10.8) 11/22/22 Plt Count 222 X10*3/uL (160-400) 11/22/22 Sodium 138 mmol/L (135-145) 11/22/22 Potassium 4.1 mmol/L (3.3-5.1) 11/22/22 Chloride 103 mmol/L (96-108) 11/22/22 Carbon Dioxide 25 mmol/L (22-29) 11/22/22 BUN 21 mg/dL (9-16) H 11/22/22 Creatinine 1.24 mg/dL (0.5-1.4) 11/22/22 Calcium 10.1 mg/dL (8.4-10.2) 11/22/22 Urine Protein Negative mg/dL (Neg-Trace) 11/22/22 Urine Creatinine 101.43 mg/dL 11/22/22
== END 2023-06-18 10:46 | disposition home or self-care (01) ==
PROVIDERS: PCP Nurse Practitioner Family; Visit Provider Internal Medicine Nephrology
DX: I10 Essential (primary) hypertension (principal); N18.31 Chronic kidney disease, stage 3a
CPT/HCPCS: 99213

== ENCOUNTER → 2023-06-18 10:05 | Outpatient (BNVA) | payer OTHER, SELFPAY | PROVIDERS: PCP Nurse Practitioner Family; Visit Provider Internal Medicine Nephrology ==

== ENCOUNTER 2023-06-18 10:50 | Outpatient (REF) | payer OTHER, SELFPAY ==
[2023-06-18 12:49] LABS: Basophils Percent Auto 0.3 % (0-2); Eosinophils Absolute Auto 0.2 X10*3/uL (0.0-0.4); Eosinophils Percent Auto 2.6 % (0-4); Hematocrit 43.3 % (42.0-52.0); Hemoglobin 14.6 g/dl (14.0-18.0); Imm Gran Abs Auto 0.02 X10*3/uL (0.00-0.03); Imm Gran Pct Auto 0.3 % (0.0-0.4); Lymphocytes Absolute Auto 1.9 X10*3/uL (1.2-4.9); Lymphocytes Percent Auto 25.4 % (20-40); MANUAL DIFF FLAG NO; Mean Corpuscular HGB Conc 33.7 g/dl (31.0-36.0); Mean Platelet Volume 9.9 fL (9.4-12.4); Monocytes Absolute Auto 0.6 X10*3/uL (0.1-1.2); Monocytes Percent Auto 8.2 % (2-11); Neutrophils Absolute Auto 4.8 x10*3/uL (2.0-8.3); Neutrophils Percent Auto 63.2 % (45-73); Platelet Count 235 X10*3/uL (160-400); Red Blood Count 5.22 X10*6/uL (4.60-5.80); Red Cell Distribution Width 12.9 % (11.0-16.0); White Blood Count 7.6 X10*3/uL (4.8-10.8)
[2023-06-18 12:56] LABS: Appearance Urine Clear; Color Urine Yellow; Glucose Urine UA Negative (Negative); Leukocyte Esterase Urine Negative (Negative); Nitrite Urine Negative (Negative); PH 5.5 (5.0-9.0); Specific Gravity - Urine 1.015 (1.005-1.025); Urine Blood Negative (Negative); Urine Ketones Negative (Negative); Urine Protein Negative (Neg-Trace)
[2023-06-18 13:59] LABS: Alanine Aminotransferase 44 U/L (0-40); Albumin Level 4.5 g/dL (3.5-5.0); Alkaline Phosphatase 52 U/L (39-117); Anion Gap 12 (12-20); Aspartate Amino Transferase 24 U/L (5-37); Bilirubin Total 0.5 mg/dL (0.0-1.0); Blood Urea Nitrogen 26 mg/dL (9-16); Calcium 9.3 mg/dL (8.4-10.2); Carbon Dioxide 26 mmol/L (22-29); Chloride 104 mmol/L (96-108); Cholesterol 171 mg/dL (<200); Estimated Glomerular Filt Rate 44; Glucose Fasting 215 mg/dL (60-99); HDL Cholesterol 30 mg/dL (>40); Potassium 4.4 mmol/L (3.3-5.1); Sodium 138 mmol/L (135-145); Total Protein 7.5 g/dL (6.5-8.0); Triglycerides 611 mg/dL (<150)
[2023-06-18 14:13] LABS: TSH reflex Free T4 1.79 uIU/mL (0.32-4.0)
[2023-06-18 16:57] LABS: Creatinine Urine 122.57 mg/dL; Total Protein Urine Random < 7 mg/dL (<12)
== END 2023-06-18 10:51 | disposition home or self-care (01) ==
LOC: HO.HKASLDS 10:50
PROVIDERS: Nurse Practitioner Family; Visit Provider Internal Medicine Nephrology
DX: Z00.00 Encounter for general adult medical examination without abnormal findings (principal); I12.9 Hypertensive chronic kidney disease with stage 1 through stage 4 chronic kidney disease, or unspecified chronic kidney disease; E11.22 Type 2 diabetes mellitus with diabetic chronic kidney disease; N18.30 Chronic kidney disease, stage 3 unspecified
CPT/HCPCS: 36415; 80053; 80061; 81003; 82570; 84156; 84443; 85025

== ENCOUNTER → 2023-06-27 09:44 | Outpatient (BNVA) | payer OTHER, SELFPAY | PROVIDERS: PCP Nurse Practitioner Family; Visit Provider Internal Medicine | DX: I44.1 Atrioventricular block, second degree (principal); I10 Essential (primary) hypertension | CPT/HCPCS: 93005 ==

== ENCOUNTER 2023-06-27 09:53 | Outpatient (AMB) | payer OTHER, SELFPAY ==
[2023-06-27 09:45] VITALS: BP 128/72; PULSE 76; BMI 36.5
--- NOTE | 2023-06-27 09:45 | MHC.OFFVIS ---
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 In the past, he was seen in consultation regarding preoperative risk stratification for shoulder surgery. That apparently went uneventful and he feels well in that regard. He had a preoperative EKG that showed Mobitz 1 second-degree heart block and hence he has been referred here. Patient does not have any previous cardiac issues including coronary disease, myocardial infarction or cardiomyopathy. He also denies any specific symptoms like angina or shortness of breath or dizzy spells or syncopal episodes. He states he has had a sleep study in the past and did not have any sleep apnea. He is active very regularly, including exercises like [employer] without any issues. More recently, he is cut back due to injuries and musculoskeletal pains. Overall, he is feeling good. No new complaints. No angina or in fact anything cardiac sounding. [facility] Medical History Diabetes Hypothyroid Elevated cholesterol Fatty liver CKD (chronic kidney disease) Essential hypertension Surgical History History of nasal surgery Family History Father Depression Cancer of prostate Mental health disorder Mother Cancer Leukemia Maternal Grandfather No problems noted. Maternal Grandmother No problems noted. Paternal Grandfather No problems noted. Paternal Grandmother No problems noted. 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 [employer] Current occupational exposures/hazards: Yes Cognitive needs: No Hearing needs: No Vision needs: No Review of Systems Const Denies weakness ENT Denies dizziness Card Denies chest pain, Denies chest pain with activity, Denies syncope, Denies rapid heart rate, Denies pedal edema, Denies edema, Denies leg edema, Denies lightheadedness, Denies palpitations, Denies dyspnea, Denies dyspnea on exertion and Denies orthopnea Resp Denies cough, Denies dyspnea and Denies dyspnea on exertion GI Denies hematochezia and Denies change in stool character Musc Denies abnormal gait, Denies muscle cramps, Denies muscle weakness, Denies numbness, Denies radiating pain into limb and Denies tingling Neuro Denies abnormal gait, Denies dizziness, Denies syncope, Denies numbness, Denies tingling and Denies weakness Endo Denies palpitations Physical Exam Vital Signs: Last Vital Signs Pulse 76 06/27/23 09:45 BP 128/72 06/27/23 09:45 BMI result Body Mass Index 36.5 Const General: comfortable and no acute distress Orientation/consciousness: patient oriented x3 HEENT Other: Unremarkable Head: Yes normal to inspection Neck Neck: Yes normal visual inspection Chest Chest palpation & inspection: normal inspection of the chest Resp Auscultation: clear to auscultation bilaterally Cardio Palpation: normal PMI Heart sounds: S1 normal heart sound present, S2 normal heart sound present, no gallops, no murmurs and no rubs GI Palpation (GI): Soft to palpation Back/Spine/Pelvis Other: unremarkable Skin General skin exam: no rashes or lesions noted Neuro General: patient oriented x3 Extrem General: Yes normal to inspection Psych Mental Status: mental status grossly normal Office Procedures EKG Details: EKG with sinus rhythm at 76/Min; no significant ST-T changes; borderline MT prolongation to 206 millisecond; [place]. [id number], Complete Assessment & Plan Assessment & Plan (1) Second degree heart block: Code(s): I44.1 - Atrioventricular block, second degree (2) Essential hypertension: Code(s): I10 - Essential (primary) hypertension Plan Cardiac studies reviewed. In the echocardiogram, LVEF 55-60%; possible basal inferior hypokinesis; ascending aortic size was 3.7 cm. Otherwise unremarkable. Images reviewed and the basal inferior wall hypokinesis not entirely convincing. In the stress test, he was able to exercise for 9 minutes 29 seconds on Joseph protocol and reached 92% of max predicted heart rate and 10.8 Mets. No angina. No EKG evidence of ischemia. Appropriate chronotropic response. In the Holter, underlying rhythm was sinus with an average rate of 86/Min; some nocturnal Mobitz 1 second-degree block but otherwise unremarkable. Overall, stable cardiac status with no symptoms and unlimited exercise tolerance. With regard to conduction system disease, improved after stopping diltiazem. No further changes. Per patient, sleep study unremarkable in the past. Blood pressure seems okay on the current regimen. Lifestyle measures will help additionally. With regard to the question of wall motion abnormality, could be just artifactual as he has no chest pain and high workload during stress test. If necessary, consider coronary CTA in the future. He will contact us with any cardiac symptoms but we can otherwise see him in 1 year. Total time spent including review of data, counseling, documentation, coordination of care-32 minutes. Coding Level of Care Code Est Pt Level 4 (90456) Diagnoses Second degree heart block I44.1 Essential hypertension I10 CPT Codes EKG - CPT: 45544-[id number], Complete ([id number])
== END 2023-06-27 10:02 | disposition home or self-care (01) ==
PROVIDERS: PCP Nurse Practitioner Family; Visit Provider Internal Medicine
DX: I44.1 Atrioventricular block, second degree (principal); I10 Essential (primary) hypertension
CPT/HCPCS: 93010; 99214

== ENCOUNTER 2023-09-05 11:24 | Outpatient (AMB) | payer OTHER, SELFPAY ==
--- NOTE | 2023-09-05 11:56 | HO.NEPHOV_ITS ---
HPI HPI Comments History of Present Illness Details I had the pleasure of seeing Francisco in follow-up of his chronic kidney disease and hypertension. He is known to have polycystic kidney disease. He had intermittent orthostatic symptoms which has improved with cutting back on medications. He does not have any flank pain, hematuria, renal stones, urinary infections, hematuria, pedal edema, nausea, vomiting, diarrhea, chest pain, shortness of breath, proximal nocturnal dyspnea or orthopnea. He is compliant with medications. He is unhappy about his weight. He is wondering whether his medications can be cut back more. He does not take any nonsteroidal anti-in flammatories. All the systems were reviewed and were negative. [facility] Medical History Diabetes Hypothyroid Elevated cholesterol Fatty liver CKD (chronic kidney disease) Essential hypertension Surgical History History of nasal surgery Family History Father Depression Cancer of prostate Mental health disorder Mother Cancer Leukemia Maternal Grandfather No problems noted. Maternal Grandmother No problems noted. Paternal Grandfather No problems noted. Paternal Grandmother No problems noted. 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 Current occupational exposures/hazards: Yes Cognitive needs: No Hearing needs: No Vision needs: No Vital Signs 09/05/23 11:57 Height 5 ft 9 in Weight 253 lb BMI 37.4 BP 110/80 Blood Pressure Location Lt brachial Position Sitting Pulse 81 Pulse Source Pulse Oximeter Pulse Oximetry (%) 97 Oxygen Delivery Method Room Air Physical Exam Vital Signs: Last Vital Signs Pulse 81 09/05/23 11:57 BP 110/80 09/05/23 11:57 Pulse Ox 97 09/05/23 11:57 Oxygen Delivery Method Room Air 09/05/23 11:57 BMI result Body Mass Index 37.4 Const General: comfortable and no acute distress Orientation/consciousness: patient oriented x3 HEENT Head: Yes normocephalic Mouth: Normal oral and palatal mucosa present Eyes EOM: EOMs intact bilaterally Neck Neck: Yes supple Resp Auscultation: clear to auscultation bilaterally Cardio Jugular venous distension: no JVD Rate: regular rate GI Palpation (GI): Soft to palpation Auscultation: normal bowel sounds General: Yes no CVA tenderness Back/Spine/Pelvis Back: no CVA tenderness Skin General skin exam: no rashes or lesions noted Neuro General: patient oriented x3 and moves all extremities Extrem General: Yes no pedal edema Assessment & Plan Assessment & Plan (1) CKD (chronic kidney disease) stage 3, GFR 30-59 ml/min: Code(s): N18.30 - Chronic kidney disease, stage 3 unspecified Qualifiers: Chronic kidney disease stage 3 subtype: stage 3a (GFR 45-59) Qualified Code(s): N18.31 - Chronic kidney disease, stage 3a (2) Hypertension: Code(s): I10 - Essential (primary) hypertension Qualifiers: Hypertension type: primary hypertension Qualified Code(s): I10 - Essential (primary) hypertension Plan Francisco has polycystic kidney disease. His blood pressure is currently on the lower side, with orthostatic symptoms which improved with reduction of his amlodipine to 5 mg. I asked him to hold it altogether for now. His renal functions are stable. He does not take any nonsteroidal anti-inflammatories. He tries to maintain good hydration. He has not had any symptoms suggestive of any cyst rupture, cyst infection or renal stones. He needs to lose weight. He should remain well hydrated and minimize nonsteroidal anti-inflammatories. He may potentially be a candidate for tolvaptan in the future. He has not had any gene testing for PKD yet. All questions answered. Follow-up given. Orders: Orders Blood Urea Nitrogen Today N18.31 - Chronic kidney disease, stage 3a Electrolytes Today N18.31 - Chronic kidney disease, stage 3a Creatinine Today N18.31 - Chronic kidney disease, stage 3a Coding Level of Care Code Est Pt Level 4 (89012) Diagnoses Stage 3a chronic kidney disease N18.31 Chronic kidney disease stage 3 subtype: stage 3a (GFR 45-59) Primary hypertension I10 Hypertension type: primary hypertension Results Reviewed Nephrology Results: Hgb 14.6 g/dl (14.0-18.0) 06/18/23 WBC 7.6 X10*3/uL (4.8-10.8) 06/18/23 Plt Count 235 X10*3/uL (160-400) 06/18/23 Sodium 138 mmol/L (135-145) 06/18/23 Potassium 4.4 mmol/L (3.3-5.1) 06/18/23 Chloride 104 mmol/L (96-108) 06/18/23 Carbon Dioxide 26 mmol/L (22-29) 06/18/23 BUN 26 mg/dL (9-16) H 06/18/23 Creatinine 1.67 mg/dL (0.5-1.4) H 06/18/23 Calcium 9.3 mg/dL (8.4-10.2) 06/18/23 Urine Protein Negative mg/dL (Neg-Trace) 06/18/23 Urine Creatinine 122.57 mg/dL 06/18/23 Protein/Creatinin Ratio TNP 06/18/23
[2023-09-05 11:57] VITALS: BP 110/80; PULSE 81; O2SAT 97; BMI 37.4
== END 2023-09-05 12:31 | disposition home or self-care (01) ==
PROVIDERS: PCP Nurse Practitioner Family; Visit Provider Internal Medicine Nephrology
DX: N18.31 Chronic kidney disease, stage 3a (principal); I10 Essential (primary) hypertension
CPT/HCPCS: 99214

== ENCOUNTER → 2023-09-05 11:24 | Outpatient (BNVA) | payer OTHER, SELFPAY | PROVIDERS: PCP Nurse Practitioner Family; Visit Provider Internal Medicine Nephrology ==

== ENCOUNTER 2023-12-31 10:53 | Outpatient (REF) | payer OTHER, SELFPAY ==
[2023-12-31 18:38] LABS: Anion Gap 16 (12-20); Blood Urea Nitrogen 20 mg/dL (9-16); Carbon Dioxide 26 mmol/L (22-29); Chloride 101 mmol/L (96-108); Estimated Glomerular Filt Rate 44; Potassium 4.7 mmol/L (3.3-5.1); Sodium 138 mmol/L (135-145)
== END 2023-12-31 10:54 | disposition home or self-care (01) ==
LOC: HO.HKASLDS 10:53
PROVIDERS: Visit Provider Internal Medicine Nephrology
DX: N18.30 Chronic kidney disease, stage 3 unspecified (principal); N18.31 Chronic kidney disease, stage 3a; I12.9 Hypertensive chronic kidney disease with stage 1 through stage 4 chronic kidney disease, or unspecified chronic kidney disease
CPT/HCPCS: 36415; 80051; 82565; 84520

== ENCOUNTER 2023-12-31 10:55 | Outpatient (AMB) | payer OTHER, SELFPAY ==
[2023-12-31 11:11] VITALS: BP 118/82; PULSE 84; O2SAT 94; BMI 37.0
--- NOTE | 2023-12-31 11:11 | HO.NEPHOV_ITS ---
Vital Signs 12/31/23 11:11 Height 5 ft 9 in Weight 250 lb 4 oz BMI 37.0 BP 118/82 Blood Pressure Location Lt brachial Position Sitting Pulse 84 Pulse Source Pulse Oximeter Pulse Oximetry (%) 94 Oxygen Delivery Method Room Air Intake Visit Reasons: 4 Month F/U/ Conf [employer] Required: No Accompanied by: Self / Same As Patient Allergies No Known Allergies Allergy (Verified 12/31/23 11:14) HPI Comments Details: I had the pleasure of seeing Francisco in follow-up of his chronic kidney disease and hypertension. He is known to have polycystic kidney disease. He does not have any flank pain, hematuria, renal stones, urinary infections, hematuria, pedal edema, nausea, vomiting, diarrhea, chest pain, shortness of breath, proximal nocturnal dyspnea or orthopnea. He is compliant with medications. He is unhappy about his weight. He does not take any nonsteroidal anti-inflammatories. All the systems were reviewed and were negative. [facility] Medical History Diabetes Hypothyroid Elevated cholesterol Fatty liver CKD (chronic kidney disease) Essential hypertension Surgical History History of nasal surgery Family History Father Depression Cancer of prostate Mental health disorder Mother Cancer Leukemia Maternal Grandfather No problems noted. Maternal Grandmother No problems noted. Paternal Grandfather No problems noted. Paternal Grandmother No problems noted. 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 Current occupational exposures/hazards: Yes Cognitive needs: No Hearing needs: No Vision needs: No Review of Systems Const All systems reviewed & are unremarkable except as noted in HPI and below Physical Exam Vital Signs: Last Vital Signs Pulse 84 12/31/23 11:11 BP 118/82 12/31/23 11:11 Pulse Ox 94 12/31/23 11:11 Oxygen Delivery Method Room Air 12/31/23 11:11 BMI result Body Mass Index 37.0 Const General: comfortable and no acute distress Orientation/consciousness: patient oriented x3 HEENT Head: Yes normocephalic Mouth: Normal oral and palatal mucosa present Eyes EOM: EOMs intact bilaterally Neck Neck: Yes supple Resp Auscultation: clear to auscultation bilaterally Cardio Jugular venous distension: no JVD Rate: regular rate GI Palpation (GI): Soft to palpation Auscultation: normal bowel sounds General: Yes no CVA tenderness Back/Spine/Pelvis Back: no CVA tenderness Skin General skin exam: no rashes or lesions noted Neuro General: patient oriented x3 and moves all extremities Extrem General: Yes no pedal edema Results Reviewed Nephrology Results: Hgb 14.6 g/dl (14.0-18.0) 06/18/23 WBC 7.6 X10*3/uL (4.8-10.8) 06/18/23 Plt Count 235 X10*3/uL (160-400) 06/18/23 Sodium 138 mmol/L (135-145) 06/18/23 Potassium 4.4 mmol/L (3.3-5.1) 06/18/23 Chloride 104 mmol/L (96-108) 06/18/23 Carbon Dioxide 26 mmol/L (22-29) 06/18/23 BUN 26 mg/dL (9-16) H 06/18/23 Creatinine 1.67 mg/dL (0.5-1.4) H 06/18/23 Calcium 9.3 mg/dL (8.4-10.2) 06/18/23 Urine Protein Negative mg/dL (Neg-Trace) 06/18/23 Urine Creatinine 122.57 mg/dL 06/18/23 Protein/Creatinin Ratio TNP 06/18/23 Assessment & Plan Assessment & Plan (1) CKD (chronic kidney disease) stage 3, GFR 30-59 ml/min: Code(s): N18.30 - Chronic kidney disease, stage 3 unspecified Category: Medical Qualifiers: Chronic kidney disease stage 3 subtype: stage 3a (GFR 45-59) Qualified Code(s): N18.31 - Chronic kidney disease, stage 3a (2) Hypertension: Code(s): I10 - Essential (primary) hypertension Category: Medical Qualifiers: Hypertension type: primary hypertension Qualified Code(s): I10 - Essential (primary) hypertension Plan Francisco has polycystic kidney disease. His blood pressure is currently at goal. His renal functions from AM is pending. He does not take any nonsteroidal anti- inflammatories. He tries to maintain good hydration. He has not had any symptoms suggestive of any cyst rupture, cyst infection or renal stones. He needs to lose weight. He should remain well hydrated and minimize nonsteroidal anti-inflammatories. He may potentially be a candidate for tolvaptan in the future. He has not had any gene testing for PKD yet. All questions answered. Follow-up given Orders: Orders Creatinine 6 Months I10 - Essential (primary) hypertension, N18.31 - Chronic kidney disease, stage 3a Electrolytes 6 Months I10 - Essential (primary) hypertension, N18.31 - Chronic kidney disease, stage 3a Blood Urea Nitrogen 6 Months I10 - Essential (primary) hypertension, N18.31 - Chronic kidney disease, stage 3a Coding Level of Care Code Est Pt Level 4 (57248) Diagnoses Stage 3a chronic kidney disease N18.31 Chronic kidney disease stage 3 subtype: stage 3a (GFR 45-59) Primary hypertension I10 Hypertension type: primary hypertension
== END 2023-12-31 11:32 | disposition home or self-care (01) ==
PROVIDERS: PCP Nurse Practitioner Family; Visit Provider Internal Medicine Nephrology
DX: N18.31 Chronic kidney disease, stage 3a (principal); I10 Essential (primary) hypertension
CPT/HCPCS: 99214

== ENCOUNTER 2024-01-21 09:56 | Outpatient (AMB) | payer OTHER, SELFPAY ==
--- NOTE | 2024-01-21 10:04 | A.OFFPC_ITS ---
Vital Signs 01/21/24 10:05 Height 5 ft 9 in Weight 252 lb BMI 37.2 BP 110/80 Blood Pressure Location Lt brachial Position Sitting Pulse 87 Pulse Source Pulse Oximeter Pulse Oximetry (%) 95 Oxygen Delivery Method Room Air Intake Visit Reasons: 3 Months F/U Intake Note: Pt is here today for his 3 mo. f/u Allergies No Known Allergies Allergy (Verified 01/21/24 11:22) Medication List - Last Reconciled 01/21/24 by JORDAN Dunn atorvastatin 80 mg PO DAILY carvedilol 12.5 mg PO BID cholecalciferol (vitamin D3) 50 mcg PO DAILY ezetimibe 10 mg PO DAILY levothyroxine 100 mcg PO DAILY losartan 100 mg PO DAILY omega-3 acid ethyl esters 2 caps PO BID 90 days spironolactone 50 mg (2 x 25 mg) PO DAILY 90 days Tobacco use date assessed: 01/21/24 Dental Screening Dental Screen Date: 05/29/23 Did you have a dental visit in the last 12 months?: Yes Did you have a dental problem in the last 6 months where you did not have access to dental care?: Yes Was dental information given to patient?: Patient has dentist HPI 3 Months F/U HPI Details Pt is a diabetic, on an ARB and a statin. A1C in office today is 7.2, though pt does not believe this is accurate. Will repeat A1C with lab draw tomorrow. Due for microalbumin, will order. Denies polyuria, polydipsia, and neuropathy. Pt denies any signs and symptoms of hypoglycemia and does know how to correct it. Pt refuses a GLP-1 agonist. Pt will work on his diet. Eye exam is up to date. Pt follows up with nephrology. [facility] Medical History Diabetes Hypothyroid Elevated cholesterol Fatty liver CKD (chronic kidney disease) Essential hypertension Surgical History History of nasal surgery Family History Father Depression Cancer of prostate Mental health disorder Mother Cancer Leukemia Maternal Grandfather No problems noted. Maternal Grandmother No problems noted. Paternal Grandfather No problems noted. Paternal Grandmother No problems noted. 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: [employer] Current occupational exposures/hazards: Yes Cognitive needs: No Hearing needs: No Vision needs: No Questionnaire PHQ-9 Over the last 2 weeks, how often have you been bothered by any of the following problems? 1. Little interest or pleasure in doing things: not at all 2. Feeling down, depressed, or hopeless: not at all 3. Trouble falling or staying asleep, or sleeping too much: not at all 4. Feeling tired or having little energy: not at all 5. Poor appetite or overeating: not at all 6. Feeling bad about yourself - or that you are a failure or have let yourself or your family down: not at all 7. Trouble concentrating on things, such as reading the newspaper or watching television: not at all 8. Moving or speaking so slowly that other people could have noticed. Or the opposite - being so fidgety or restless that you have been moving around a lot more than usual: not at all 9. Thoughts that you would be better off or of hurting yourself in some way: not at all Total score: 0 Depression Screening Interpretation: Negative Depression Screening Done: Yes 15740 - PHQ-9 Billing: Yes Source: Developed by Drs. Timothy Ibarra, Guerda Calderon, Marcos Mcgregor and colleagues, with an educational titi from [employer]. Thrive Questionnaire Date Thrive assessed: 01/21/24 I am a: Patient What is your living situation today?: I have a steady place to live Within the past 12 months, did the food you bought not last and you didn't have the money to get more?: Never true Within the past 12 months, did you worry whether your food would run out before you got money to buy more?: Never true Do you have trouble paying for medicines?: Yes Do you have trouble getting transportation to medical appointments?: No Do you have trouble paying your heating and electricity bill?: No Do you have trouble taking care of your child, family member or friend?: No Do you have trouble with day-to-day activities such as bathing, preparing meals, shopping, managing finances, etc.?: No Are you currently unemployed and looking for a job?: No Are you interested in more education?: No Please select the resources that you would like help with: Paying for medicine Currently or been in a relationship where the following occur: No concerns reported THRIVE Score: 0 AUDIT C Alcohol Use Questionnaire (AUDIT-C) 1. How often do you have a drink containing alcohol?: Monthly or less 2. How many drinks containing alcohol do you have on a typical day when you are drinking?: 1 or 2 3. How often do you have six or more drinks on one occasion?: Never Total Score: 1 ROYER-7 AMB Questionnaire ROYER-7 Date ROYER - 7 assessed: 01/21/24 Feeling nervous, anxious, or on edge: 0 = Not at all Not being able to stop or control worryin = Not at all Worrying too much about different things: 3 = Nearly every day Trouble relaxin = Nearly every day Being so restless that it is hard to sit still: 0 = Not at all Becoming easily annoyed or irritable: 0 = Not at all Feeling afraid as if something awful might happen: 0 = Not at all Total ROYER-7 score (0-4 normal; 5-9 mild; 10-14 moderate; 15-21 severe): 6 Source: Developed by Drs. Timothy Ibarra, Guerda Calderon, Marcos Mcgregor and colleagues, with an educational titi from [employer]. ROYER-7 Assessment Billing ROYER-7 Assessment Tool: ROYER-7 Assessment 54887 Review of Systems Const Reports as per HPI Physical exam (Primary Care) Vital Signs: Last Vital Signs Pulse 87 01/21/24 10:05 BP 110/80 01/21/24 10:05 Pulse Ox 95 01/21/24 10:05 Oxygen Delivery Method Room Air 01/21/24 10:05 BMI result Body Mass Index 37.2 Tobacco/Smoking Status: Tobacco use Status Tobacco use date assessed 01/21/24 01/21/24 10:08 Patient Tobacco Use Status Never used Tobacco 01/21/24 10:08 e-Cigarette/Vaping Use Never Used 01/21/24 10:08 PHQ-9: PHQ-9 Score PHQ-9: Total score 0 01/21/24 11:23 Depression Screening Interpretation: Negative Thrive Assessment: Date of Thrive Assessment Date Thrive assessed 01/21/24 01/21/24 10:08 Currently or been in a relationship where the following occur: No concerns reported Const General: cooperative Nutritional Appearance: obese Orientation/consciousness: patient oriented x3 Resp Effort & Inspection: normal respiratory effort Auscultation: clear to auscultation bilaterally Cardio Rate: regular rate Rhythm: regular rhythm Heart sounds: S1 normal heart sound present and S2 normal heart sound present Neuro General: patient oriented x3 Extrem Other: bilat feet: + sensation with use of monofilament, feet intact Psych Appearance: grossly normal Mental Status: mental status grossly normal Speech and movement: Normal speech and movement present Affect: normal affect Attitude: cooperative Thought process: Normal thought process present Thought content: Normal thought content present Insight: Good insight present (Psych) Judgement: Good judgement present (Psych) Results AMB Hemoglobin A1c AMB Hemoglobin A1c 7.2 % Last Edit by Martir Bowman CMA on 01/21/24 10: 11 Results Reviewed Results Reviewed: Laboratory Last Values Hgb A1c (Clinic) 7.2 % (4.0-6.0) H 01/21/24 10:08 Assessment and Plan Assessment & Plan (1) Diabetes: Code(s): E11.9 - Type 2 diabetes mellitus without complications Plan: work on diet, labs ordered (2) Prostate cancer screening: Code(s): Z12.5 - Encounter for screening for malignant neoplasm of prostate (3) Diabetes: Code(s): E11.9 - Type 2 diabetes mellitus without complications Plan The patient agreed to the use of a certified medical dosimetrist for this encounter. Scribed for JORDAN Romo by Julieta Mckeon certified medical dosimetrist, on 01/21/2024 at 10:20 EST. Orders: Orders AMB Hemoglobin A1c Today Z13.9 - Encounter for screening, unspecified Comprehensive [place]. Panel Fast Today E11.9 - Type 2 diabetes mellitus without complications TSH reflex Free T4 Today E11.9 - Type 2 diabetes mellitus without complications Prostate Specific Antigen Scr Today Z12.5 - Encounter for screening for malignant neoplasm of prostate Microalbumin, Random (w Creat) Today E11.9 - Type 2 diabetes mellitus without complications Complete Blood Count Auto Diff Today E11.9 - Type 2 diabetes mellitus without complications UA CC w/rflx Micro + Cult Today E11.9 - Type 2 diabetes mellitus without complications Lipid Panel Today E11.9 - Type 2 diabetes mellitus without complications Hemoglobin A1c Today E11.9 - Type 2 diabetes mellitus without complications Coding Level of Care Code Est Pt Level 3 (91919) Diagnoses Diabetes E11.9 Prostate cancer screening Z12.5 Additional Codes ROYER-7 Assessment Billing - ROYER-7 Assessment Tool: ROYER-7 Assessment 92920 ([id number])
[2024-01-21 10:05] VITALS: BP 110/80; PULSE 87; O2SAT 95; BMI 37.2
== END 2024-01-21 10:34 | disposition home or self-care (01) ==
PROVIDERS: PCP Nurse Practitioner Family; Visit Provider Nurse Practitioner Family
DX: E11.9 Type 2 diabetes mellitus without complications (principal); Z12.5 Encounter for screening for malignant neoplasm of prostate
CPT/HCPCS: 83036; 99213

== ENCOUNTER 2024-01-22 09:54 | Outpatient (REF) | payer OTHER, SELFPAY ==
[2024-01-22 13:22] LABS: MANUAL DIFF FLAG NO
[2024-01-22 13:27] LABS: Appearance Urine Clear; Color Urine Yellow; Glucose Urine UA Negative (Negative); Leukocyte Esterase Urine Negative (Negative); Nitrite Urine Negative (Negative); PH 5.5 (5.0-9.0); Urine Blood Negative (Negative); Urine Ketones Negative (Negative); Urine Protein Negative (Neg-Trace)
[2024-01-22 13:32] LABS: Basophils Percent Auto 0.3 % (0-2); Eosinophils Absolute Auto 0.2 X10*3/uL (0.0-0.4); Eosinophils Percent Auto 2.2 % (0-4); Hematocrit 44.9 % (42.0-52.0); Hemoglobin 15.2 g/dl (14.0-18.0); Imm Gran Abs Auto 0.04 X10*3/uL (0.00-0.03); Imm Gran Pct Auto 0.5 % (0.0-0.4); Lymphocytes Absolute Auto 1.9 X10*3/uL (1.2-4.9); Lymphocytes Percent Auto 24.6 % (20-40); Mean Corpuscular HGB Conc 33.9 g/dl (31.0-36.0); Mean Corpuscular Hemoglobin 28.4 pg (27.0-33.0); Mean Corpuscular Volume 83.8 fL (80.0-98.0); Mean Platelet Volume 9.5 fL (9.4-12.4); Monocytes Absolute Auto 0.8 X10*3/uL (0.1-1.2); Monocytes Percent Auto 10.6 % (2-11); Neutrophils Absolute Auto 4.7 x10*3/uL (2.0-8.3); Neutrophils Percent Auto 61.8 % (45-73); Platelet Count 229 X10*3/uL (160-400); Red Blood Count 5.36 X10*6/uL (4.60-5.80); Red Cell Distribution Width 13.2 % (11.0-16.0); White Blood Count 7.7 X10*3/uL (4.8-10.8)
[2024-01-22 14:05] LABS: Estimated Average Glucose 163 mg/dL; Hemoglobin A1c % 7.3 % (<6.0)
[2024-01-22 14:07] LABS: Alanine Aminotransferase 55 U/L (0-40); Albumin Level 4.6 g/dL (3.5-5.0); Alkaline Phosphatase 49 U/L (39-117); Anion Gap 13 (12-20); Aspartate Amino Transferase 28 U/L (5-37); Bilirubin Total 0.6 mg/dL (0.0-1.0); Blood Urea Nitrogen 23 mg/dL (9-16); Calcium 9.9 mg/dL (8.4-10.2); Carbon Dioxide 26 mmol/L (22-29); Chloride 104 mmol/L (96-108); Cholesterol 156 mg/dL (<200); Estimated Glomerular Filt Rate 49; Glucose Fasting 127 mg/dL (60-99); HDL Cholesterol 33 mg/dL (>40); Potassium 4.2 mmol/L (3.3-5.1); Sodium 139 mmol/L (135-145); Total Protein 7.5 g/dL (6.5-8.0); Triglycerides 423 mg/dL (<150)
[2024-01-22 14:08] LABS: Prostate Specific Antigen Scr 0.84 ng/mL (<0.05-4.0)
[2024-01-22 14:13] LABS: Creatinine Urine 79.13 mg/dL; Microalbum/Creatinine Ratio Ur 30.3 ug/mg cr (<30); TSH reflex Free T4 1.68 uIU/mL (0.32-4.0)
== END 2024-01-22 09:55 | disposition home or self-care (01) ==
LOC: HO.HMGCLDS 09:54
PROVIDERS: PCP Nurse Practitioner Family; Visit Provider Nurse Practitioner Family
DX: E11.9 Type 2 diabetes mellitus without complications (principal); Z12.5 Encounter for screening for malignant neoplasm of prostate
CPT/HCPCS: 36415; 80053; 80061; 81003; 82043; 82570; 83036; 84153; 84443; 85025

== ENCOUNTER → 2024-02-20 09:30 | Outpatient (BNVA) | payer OTHER, SELFPAY | PROVIDERS: PCP Nurse Practitioner Family ==

== ENCOUNTER 2024-02-27 13:23 | Outpatient (AMB) | payer OTHER, SELFPAY ==
[2024-02-27 13:47] VITALS: BMI 37.3
--- NOTE | 2024-02-27 13:47 | A.OFFVIS_ITS ---
VS Expanded 02/27/24 13:47 02/27/24 23:15 Height 5 ft 9 in 5 ft 9 in Weight 252 lb 6.868 oz 252 lb BMI 37.3 37.2 Intake Visit Reasons: Obesity, T2DM Allergies No Known Allergies Allergy (Verified 01/21/24 11:22) Nutrition Presentation Details: Pt presents for MNT for T2DM food frequency fruits: 0/d vex/wk dairy > 4 serving/d starches > 20/d fish: no nuts/seeds:none fried foods : 5-6 x/wk physical activity: sedentary etoh: denies BS Monitoring Most Recent Diabetes Results: Microalb/Creat Ratio 30.3 ug/mg cr (<30) H 01/22/24 Cholesterol 156 mg/dL (<200) 01/22/24 HDL Cholesterol 33 mg/dL (>40) L 01/22/24 Triglycerides 423 mg/dL (<150) H 01/22/24 Creatinine 1.51 mg/dL (0.5-1.4) H 01/22/24 Blood Urea Nitrogen 23 mg/dL (9-16) H 01/22/24 Sodium 139 mmol/L (135-145) 01/22/24 Potassium 4.2 mmol/L (3.3-5.1) 01/22/24 Chloride 104 mmol/L (96-108) 01/22/24 Carbon Dioxide 26 mmol/L (22-29) 01/22/24 Calcium 9.9 mg/dL (8.4-10.2) 01/22/24 AST 28 U/L (5-37) 01/22/24 ALT 55 U/L (0-40) H 01/22/24 Total Protein 7.5 g/dL (6.5-8.0) 01/22/24 Albumin 4.6 g/dL (3.5-5.0) 01/22/24 RDE-[id number]-Ik.Jeor Equation Height: 5 ft 9 in Weight: 252 lb Resting Metabolic Rate: 1986.44 Calculated Activity Level: Mild Activity Calories Needed to Maintain Weight: 2731.36 Diagnosis Nutrition problem #1: food nutri know defi As related to (etiology) #1: diagnosis As evidenced by (sign/symptom) #1: knowledge deficit of diet [facility] Medical History Diabetes Hypothyroid Elevated cholesterol Fatty liver CKD (chronic kidney disease) Essential hypertension Surgical History History of nasal surgery Family History Father Depression Cancer of prostate Mental health disorder Mother Cancer Leukemia Maternal Grandfather No problems noted. Maternal Grandmother No problems noted. Paternal Grandfather No problems noted. Paternal Grandmother No problems noted. 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 [employer] Current occupational exposures/hazards: Yes Cognitive needs: No Hearing needs: No Vision needs: No Assessment & Plan Assessment & Plan (1) Diabetes: Code(s): E11.9 - Type 2 diabetes mellitus without complications Category: Medical Plan: Wt: 114 Kg (03/19 ) Est kcal needs as per MSJ: 2700 (40% carb, 30% protein/fat) Est fluid needs as per 25-30 ml/d: 3400 Est prot per day as per 1 g/kg bw: 114 Recommend fiber intake : 8-10 g per day and gradually increase to 25-28 g per day for women and 35-38 g for men or as tolerated Recommend sodium intake per day : less than 2300 mg Educated patient on: ( R = reviewed V = verbalizes understanding N/R = needs review N/A = not applicable * Food sources of carbohydrate, adequate serving sizes and its role in various health conditions: R V N/R * Differences between complex carbohydrates a simple carbohydrates, role of fiber in diet: R V N/R * Lean protein sources of foods: R V NR * Differences between types of fats and role in diet (mono on saturated fat fatty acids, saturated fatty acids, trans fats): R V N/R * Food sources of sodium in salt and healthy modifications for heart health in kidney health: R V R/V * Vitamins and minerals: R V N/R * Healthy plate method concept: R * Physical activity: Benefits a precaution: R V N/R * Hypoglycemia protocol (rule of 15): R V N/R * Dietary prevention of Hyperglycemia: R Patient Instructions: Work on reducing total carb to 100 g or less following healthy plate method Be mindful of high fat foods , choose lower fat food options see meal ideas Coding Level of Care Code Nutr Indiv Intake (52541) Diagnoses Diabetes E11.9 Time Spent (min) 30
[2024-02-27 23:15] VITALS: BMI 37.2
== END 2024-02-27 14:26 | disposition home or self-care (01) ==
PROVIDERS: PCP Nurse Practitioner Family; Visit Provider Dietitian, Registered
DX: E11.9 Type 2 diabetes mellitus without complications (principal)

== ENCOUNTER → 2024-02-27 13:23 | Outpatient (BNVA) | payer OTHER, SELFPAY | PROVIDERS: PCP Nurse Practitioner Family; Visit Provider Dietitian, Registered | DX: E11.9 Type 2 diabetes mellitus without complications (principal); Z71.3 Dietary counseling and surveillance | CPT/HCPCS: 97802 ==

== ENCOUNTER 2024-04-09 12:11 | Outpatient (AMB) | payer OTHER, SELFPAY ==
[2024-04-09 12:35] VITALS: BMI 36.9
--- NOTE | 2024-04-09 12:35 | A.OFFVIS_ITS ---
VS Expanded 04/09/24 12:35 Height 5 ft 9 in Weight 249 lb 9.012 oz BMI 36.9 Intake Visit Reasons: T2DM/CONFIRMED Allergies No Known Allergies Allergy (Verified 01/21/24 11:22) Nutrition Presentation Details: Pt presents for MNT f/u T2DM Pt reports working on reducing pastries/sugary, becoming easier -not including fruits -has hx of ibs, concerned about increasing fibers physical activity: 5 days (weight /cardio )- BS Monitoring Most Recent Diabetes Results: Microalb/Creat Ratio 30.3 ug/mg cr (<30) H 01/22/24 Cholesterol 156 mg/dL (<200) 01/22/24 HDL Cholesterol 33 mg/dL (>40) L 01/22/24 Triglycerides 423 mg/dL (<150) H 01/22/24 Creatinine 1.51 mg/dL (0.5-1.4) H 01/22/24 Blood Urea Nitrogen 23 mg/dL (9-16) H 01/22/24 Sodium 139 mmol/L (135-145) 01/22/24 Potassium 4.2 mmol/L (3.3-5.1) 01/22/24 Chloride 104 mmol/L (96-108) 01/22/24 Carbon Dioxide 26 mmol/L (22-29) 01/22/24 Calcium 9.9 mg/dL (8.4-10.2) 01/22/24 AST 28 U/L (5-37) 01/22/24 ALT 55 U/L (0-40) H 01/22/24 Total Protein 7.5 g/dL (6.5-8.0) 01/22/24 Albumin 4.6 g/dL (3.5-5.0) 01/22/24 [facility] Medical History Diabetes Hypothyroid Elevated cholesterol Fatty liver CKD (chronic kidney disease) Essential hypertension Surgical History History of nasal surgery Family History Father Depression Cancer of prostate Mental health disorder Mother Cancer Leukemia Maternal Grandfather No problems noted. Maternal Grandmother No problems noted. Paternal Grandfather No problems noted. Paternal Grandmother No problems noted. 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 Current occupational exposures/hazards: Yes Cognitive needs: No Hearing needs: No Vision needs: No Assessment & Plan Assessment & Plan (1) Diabetes: Code(s): E11.9 - Type 2 diabetes mellitus without complications Category: Medical Plan: Wt: 114 Kg (03/19 ), 113.5 (04/19) Est kcal needs as per MSJ: 2700 (40% carb, 30% protein/fat) Est fluid needs as per 25-30 ml/d: 3400 Est prot per day as per 1 g/kg bw: 114 Recommend fiber intake : 8-10 g per day and gradually increase to 25-28 g per day for women and 35-38 g for men or as tolerated Recommend sodium intake per day : less than 2300 mg Educated patient on: ( R = reviewed V = verbalizes understanding N/R = needs review N/A = not applicable * Food sources of carbohydrate, adequate serving sizes and its role in various health conditions: R V N/R * Differences between complex carbohydrates a simple carbohydrates, role of fiber in diet: R V N/R * Lean protein sources of foods: R V NR * Differences between types of fats and role in diet (mono on saturated fat fatty acids, saturated fatty acids, trans fats): R V N/R * Food sources of sodium in salt and healthy modifications for heart health in kidney health: R * Vitamins and minerals: R V N/R * Healthy plate method concept: R * Physical activity: Benefits a precaution: R V N/R * Hypoglycemia protocol (rule of 15): R V N/R * Dietary prevention of Hyperglycemia: R Patient Instructions: Reduce on amount of cheese added to the foods (reducing on fats/salt) HAve a fruit in place of crackers as snack Coding Level of Care Code Nutr Indiv Subseq (44652) Diagnoses Diabetes E11.9 Time Spent (min) 20
== END 2024-04-09 13:02 | disposition home or self-care (01) ==
PROVIDERS: PCP Nurse Practitioner Family; Visit Provider Dietitian, Registered
DX: E11.9 Type 2 diabetes mellitus without complications (principal)

== ENCOUNTER → 2024-04-09 12:11 | Outpatient (BNVA) | payer OTHER, SELFPAY | PROVIDERS: PCP Nurse Practitioner Family; Visit Provider Dietitian, Registered | DX: E11.9 Type 2 diabetes mellitus without complications (principal); Z71.3 Dietary counseling and surveillance | CPT/HCPCS: 97803 ==

== ENCOUNTER 2024-05-21 09:20 | Outpatient (AMB) | payer OTHER, SELFPAY ==
[2024-05-21 09:21] VITALS: BP 126/82; PULSE 90; O2SAT 96; BMI 37.4
--- NOTE | 2024-05-21 09:21 | A.OFFPC_ITS ---
Vital Signs 3 05/21/24 09:21 Height 5 ft 9 in Weight 253 lb BMI 37.4 BP 126/82 Blood Pressure Location Lt brachial Position Sitting Pulse 90 Pulse Source Pulse Oximeter Pulse Oximetry (%) 96 Oxygen Delivery Method Room Air Intake Visit Reasons: 4 month follow up Intake Note: Pt is here today for 4 months follow up visit on DM. Allergies No Known Allergies Allergy (Verified 05/21/24 09:31) Medication List - Last Reconciled 05/21/24 by JORDAN Dunn atorvastatin 80 mg PO DAILY blood sugar diagnostic (FreeStyle Lite Strips) Test blood sugar once a day blood-glucose meter (FreeStyle Lite Meter kit) As directed carvedilol 12.5 mg PO BID 30 days cholecalciferol (vitamin D3) 50 mcg PO DAILY ezetimibe 10 mg PO DAILY lancets (FreeStyle Lancets) Test blood sugar once a day levothyroxine 100 mcg PO DAILY losartan 100 mg PO DAILY omega-3 acid ethyl esters 2 caps PO BID 90 days spironolactone 50 mg (2 x 25 mg) PO DAILY 90 days Tobacco use date assessed: 05/21/24 Dental Screening Dental Screen Date: 05/21/24 Did you have a dental visit in the last 12 months?: Yes Did you have a dental problem in the last 6 months where you did not have access to dental care?: No Was dental information given to patient?: Patient has dentist HPI 4 month follow up 2 HPI0 Details Chief Complaint The patient reports increased urination, thirst, and diabetic neuropathy. History of Present Illness The patient is a 53-year-old male presenting with a follow-up for diabetes mellitus. He experiences polyuria and polydipsia, suggesting issues with glucose control. Previously, the patient monitored his blood glucose intermittently, with reported levels around the 140s mg/dL. He has attempted dietary modifications by eliminating sugars and is working with a curbstone setter to manage carbohydrates consumption. The patient recently reported symptoms consistent with diabetic neuropathy but maintains sensory perception in his feet upon examination using a monofilament. There is no recent history of any severe complications associated with diabetes. The most recent HbA1c level was 7.7%, indicating the need for adjustment in management. refuses all vaccines, wants to hold off on HEMANT right now (PSA up to date and low) Social History - Current consultation with a nutritioni st for dietary modification, particularly with carbohydrate control - Ongoing efforts in nutritional managem ent aimed at reducing sugar intake Health Maintenance - Regular blood glucose monitoring - Nutritional counseling in place - Recent HbA1c checking with levels note d at 7.7% - Advised diet modification focusing on reducing intake of sugars and carbohydrates Review of Systems - Neurological: Reports experiencing gurdeep ropathy Physical Exam General: Cooperative, healthy appearing, comfortable, no acute distress and well developed Orientation: Patient oriented x3 Limitations: No limitations Head: Normal to inspection Ears: Hearing grossly normal bilaterally Nose: Normal external nose present Face and sinus: Normal facial exam Eyes: Appearance normal, both eyes and all related structures Neck: Normal visual inspection and Yes full ROM Respiratory: Normal respiratory effort and able to speak in complete sentences. Clear to auscultation bilaterally Cardiovascular: Regular rate and rhythm. Normal S1 and S2 GI: Normal to inspection. Soft to palpation and little abdominal tenderness Skin: No rashes or lesions noted Neuro: Positive sensation with use of monofilament to bilateral feet. feet are intact Extremities: Normal to inspection, feet were intact Results - Labs: HbA1c level documented as 7.7% Plan - Initiate Jardiance empagliflozin) for additional glucose control - Continuation of dietary modifications under guidance of a curbstone setter - Regular monitoring of blood glucose le vels - Reassess diabetic neuropathy during fu ture follow-ups - Plan a follow-up visit in approximatel y 4 months to evaluate treatment efficacy and progression Patient was informed and verbally consented to the use of an ambient scribe for clinic note documentation during this visit. Discussion Notes I discussed with the patient the initiation of Jardiance, an SGLT2 inhibitor, to assist in improving glycemic control. I outlined potential side effects and stressed the importance of ongoing dietary management as addressed by his curbstone setter. Additionally, I emphasized the necessity of glucose monitoring and adherence to dietary changes. The patient was informed about the need for regular follow-up to reassess diabetes management, including neuropathy assessment. We also reviewed his last eye exam conducted in the summer and the importance of routine check-ups. Patient Instructions - Start taking Jardiance as prescribed - Continue following dietary advice from the curbstone setter - Monitor blood glucose levels regularly - Report any unusual or bothersome sympt oms - Schedule a follow-up appointment in 4 months - Maintain regular eye exams to monitor for diabetic retinopathy [facility] Medical History Diabetes Hypothyroid Elevated cholesterol Fatty liver CKD (chronic kidney disease) Essential hypertension Surgical History History of nasal surgery Family History Father Depression Cancer of prostate Mental health disorder Mother Cancer Leukemia Maternal Grandfather No problems noted. Maternal Grandmother No problems noted. Paternal Grandfather No problems noted. Paternal Grandmother No problems noted. 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: [employer] student [employer] Current occupational exposures/hazards: Yes Cognitive needs: No Hearing needs: No Vision needs: No Questionnaire Thrive Questionnaire Date Thrive assessed: 01/14/24 I am a: Patient What is your living situation today?: I have a steady place to live Within the past 12 months, did the food you bought not last and you didn't have the money to get more?: Never true Within the past 12 months, did you worry whether your food would run out before you got money to buy more?: Never true Do you have trouble paying for medicines?: Yes Do you have trouble getting transportation to medical appointments?: No Do you have trouble paying your heating and electricity bill?: No Do you have trouble taking care of your child, family member or friend?: No Do you have trouble with day-to-day activities such as bathing, preparing meals, shopping, managing finances, etc.?: No Are you currently unemployed and looking for a job?: No Are you interested in more education?: No Please select the resources that you would like help with: Paying for medicine Currently or been in a relationship where the following occur: No concerns reported THRIVE Score: 0 ROYER-7 AMB Questionnaire ROYER-7 Date ROYER - 7 assessed: 01/21/24 Source: Developed by Drs. Timothy Ibarra, Guerda Calderon, Marcos Mcgregor and colleagues, with an educational titi from [employer]. Physical exam (Primary Care) Vital Signs: Last Vital Signs Pulse 90 05/21/24 09:21 BP 126/82 05/21/24 09:21 Pulse Ox 96 05/21/24 09:21 Oxygen Delivery Method Room Air 05/21/24 09:21 BMI result Body Mass Index 37.4 Tobacco/Smoking Status: Tobacco use Status Tobacco use date assessed 05/21/24 05/21/24 09:27 Patient Tobacco Use Status Never used Tobacco 05/21/24 09:21 e-Cigarette/Vaping Use Never Used 05/21/24 09:21 Thrive Assessment: Date of Thrive Assessment Date Thrive assessed 01/14/24 05/21/24 09:21 Currently or been in a relationship where the following occur: No concerns reported [facility] Head images: 2 1. linear raised lesion Results AMB Hemoglobin A1c 2 AMB Hemoglobin A1c 7.7 % Last Edit by FRANK Lynch on 05/21/24 09:3 6 Results Reviewed Results Reviewed: Laboratory Last Values Hgb A1c (Clinic) 7.7 % (4.0-6.0) H 05/21/24 09:28 Coding Level of Care Code Est Pt Level 3 (53483) Diagnoses Diabetes E11.9 Skin lesion L98.9 Assessment & Plan Assessment & Plan (1) Diabetes: Code(s): E11.9 - Type 2 diabetes mellitus without complications Category: Medical (2) Skin lesion: Code(s): L98.9 - Disorder of the skin and subcutaneous tissue, unspecified Category: Medical Plan . Orders: Orders 2 Complete Blood Count Auto Diff Today E11.9 - Type 2 diabetes mellitus without complications Comprehensive [place]. Panel Fast Today E11.9 - Type 2 diabetes mellitus without complications AMB Hemoglobin A1c Today Z13.9 - Encounter for screening, unspecified TSH reflex Free T4 Today E11.9 - Type 2 diabetes mellitus without complications UA CC w/rflx Micro + Cult Today E11.9 - Type 2 diabetes mellitus without complications Lipid Panel Today E11.9 - Type 2 diabetes mellitus without complications Referrals 2 Dermatology Referral L98.9 - Disorder of the skin and subcutaneous tissue, unspecified Medications: New 2 empagliflozin (Jardiance) 10 mg PO DAILY 30 tabs 3RF
== END 2024-05-21 09:47 | disposition home or self-care (01) ==
PROVIDERS: PCP Nurse Practitioner Family; Visit Provider Nurse Practitioner Family
DX: E11.9 Type 2 diabetes mellitus without complications (principal); L98.9 Disorder of the skin and subcutaneous tissue, unspecified; Z13.9 Encounter for screening, unspecified

== ENCOUNTER → 2024-05-21 09:20 | Outpatient (BNVA) | payer OTHER, SELFPAY | PROVIDERS: PCP Nurse Practitioner Family; Visit Provider Nurse Practitioner Family | DX: E11.40 Type 2 diabetes mellitus with diabetic neuropathy, unspecified (principal); L98.9 Disorder of the skin and subcutaneous tissue, unspecified | CPT/HCPCS: 83036 ==

== ENCOUNTER 2024-06-25 10:44 | Outpatient (AMB) | payer OTHER, SELFPAY ==
[2024-06-25 11:08] VITALS: BMI 36.9
--- NOTE | 2024-06-25 11:08 | A.OFFVIS_ITS ---
VS Expanded 06/25/24 11:08 Height 5 ft 9 in Weight 250 lb 0.067 oz BMI 36.9 Intake Visit Reasons: T2DM/Confirmed Allergies No Known Allergies Allergy (Verified 05/21/24 09:31) Nutrition Presentation Details: Pt presents for MNT f/u for T2DM Pt reports challenges with consistent diet modifications BS Monitoring Most Recent Diabetes Results: No Data to Display PFSH Medical History Diabetes Hypothyroid Elevated cholesterol Fatty liver CKD (chronic kidney disease) Essential hypertension Surgical History History of nasal surgery Family History Father Depression Cancer of prostate Mental health disorder Mother Cancer Leukemia Maternal Grandfather No problems noted. Maternal Grandmother No problems noted. Paternal Grandfather No problems noted. Paternal Grandmother No problems noted. 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 [email or web address] Current occupational exposures/hazards: Yes Cognitive needs: No Hearing needs: No Vision needs: No Assessment & Plan Assessment & Plan (1) Diabetes: Code(s): E11.9 - Type 2 diabetes mellitus without complications Category: Medical Plan: Wt: 114 Kg (03/19 ), 113.5 (04/19), 05/2024 Est kcal needs as per MSJ: 2700 (40% carb, 30% protein/fat) Est fluid needs as per 25-30 ml/d: 3400 Est prot per day as per 1 g/kg bw: 114 Recommend fiber intake : 8-10 g per day and gradually increase to 25-28 g per day for women and 35-38 g for men or as tolerated Recommend sodium intake per day : less than 2300 mg Educated patient on: ( R = reviewed V = verbalizes understanding N/R = needs review N/A = not applicable * Food sources of carbohydrate, adequate serving sizes and its role in various health conditions: R V N/R * Differences between complex carbohydrates a simple carbohydrates, role of fiber in diet: R V N/R * Lean protein sources of foods: R V NR * Differences between types of fats and role in diet (mono on saturated fat fatty acids, saturated fatty acids, trans fats): R V N/R * Food sources of sodium in salt and healthy modifications for heart health in kidney health: R * Vitamins and minerals: R V N/R * Healthy plate method concept: R * Physical activity: Benefits a precaution: R V N/R * Hypoglycemia protocol (rule of 15): R V N/R * Dietary prevention of Hyperglycemia: R Patient Instructions: Choose smaller plate and reduce on portion of starches and fried starches (see list of starches/fried starches) Coding Level of Care Code Nutr Indiv Subseq (17759) Diagnoses Diabetes E11.9 Time Spent (min) 30
--- OUTSIDE RECORDS SUMMARY | 2024-06-25 14:28 | XMS_ITS | Encounter Summary ---
Author Organization [facility] Address [address] [facility] [address] [facility] [address] [place] [address] Phone Care Team Providers Care Technical Operator Name Role Phone Florentino Lujan NP Primary Care Provider [phone] Reason for Visit * Reason Comments Med Refill Encounter Details Date Type Department Care Team (Late st Contact Info) Description 05/07/2024 Refill [facility] [address] [facility] [address] [place] [phone] Uziel Hartley MD [address] [facility] [address] [place] [phone] Social History Tobacco Use Types Packs/Day Years Used Date Smoking Tobacco: Never Smokeless Tobacco: Never Alcohol Use Standard Drinks/Week Comments No 0 (1 standard drink = 0.6 oz pur e alcohol) Sex and Gender Information Value Date Recorded Sex Assigned at Not on file Legal Sex Male 5:07 PM EST Gender Identity Not on file Sexual Orientation Not on file documented as of this encounter Plan of Treatment Not on file documented as of this encounter Visit Diagnoses Not on filedocumented in this encounter Care Teams Technical Operator Relationship Specialty Start Date End Date Florentino Lujan NP [address] [place] [address] PCP - General Nurse Practitioner 01/03/21 documented as of this encounter
--- OUTSIDE RECORDS SUMMARY | 2024-06-25 14:28 | XMS_ITS | Encounter Summary ---
Author Organization [facility] Address [address] [facility] [address] [place] [address] Phone Care Team Providers Care Salad Bar Clerk Name Role Phone Florentino Lujan NP Primary Care Provider [phone] Reason for Visit * Reason Onset Date Comments RX refill Carvedilol 04/16/2022 Encounter Details Date Type Department Care Team (Late st Contact Info) Description 04/16/2022 Telephone [facility] [address] [facility] [address] [place] [phone] Nel Carranza RX refill Carvedilol Social History Tobacco Use Types Packs/Day Years [...] on file documented as of this encounter Miscellaneous Notes * Telephone Encounter - Nel Carranza - 04/16/2022 2:28 PM EST Pt called in saying he really needs a refill on his Carvedilol as he is completely out. documented in this encounter Plan of Treatment Not on file documented as of this encounter Visit Diagnoses Not on filedocumented in this encounter Care Teams Salad Bar Clerk Relationship Specialty Start Date End Date Florentino Lujan NP [address] [place] [id number] PCP - General Nurse Practitioner 01/03/21 documented as of this encounter
--- OUTSIDE RECORDS SUMMARY | 2024-06-25 14:28 | XMS_ITS | Clinical Summary ---
Author Organization [facility] Address [address] [address] Phone Care Team Providers Care Receivable Executive Name Role Phone Florentino Lujan NP Primary Care Provider [phone] Allergies No known active allergies Medications atorvastatin (LIPITOR) 80 MG tablet Take 1 tablet by mouth 1 (one) time each day Active Cholecalciferol 50 MCG (1999 UT) capsule Take 1 capsule by mouth 1 (one) time each day Active levothyroxine (SYNTHROID, LEVOTHROID) 100 MCG tablet Take 1 tablet by mouth 1 (one) time each day Active losartan (COZAAR) 100 MG tablet Take 1 tablet by mouth 1 (one) time each day 10/27/2014 Active spironolactone (ALDACTONE) 25 MG tablet Take 1 tablet by mouth 2 (two) times a day 02/02/2019 Active amLODIPine (NORVASC) 10 MG tablet Take 10 mg by mouth 1 (one) time each day 08/16/2021 Active Cholecalciferol (Vitamin D3) 50 MCG (2000 UT) tablet Take 1 tablet by mouth 1 (one) time each day 07/16/2021 Active carvedilol (COREG) 12.5 MG tablet Take 1 tablet (12.5 mg total) by mouth in the morning and 1 tablet (12.5 mg total) in the evening. Take with meals. 180 tablet 3 05/10/2023 Active Active Problems Problem Noted Date Diagnosed Date Stage 3a chronic kidney disease 01/03/2021 Hypertensive heart and renal disease with (congestive) heart failure 01/03/2021 Multiple congenital cysts of kidney 01/03/2021 Hypertension 01/03/2021 Adult polycystic kidney 01/03/2021 Encounters Date Type Department Care Team Description 05/07/2024 Refill [facility] [address] [place] [address] Uziel Hartley MD from Last 3 Months Family History Medical History Relation Comments Cancer Father Heart disease Father Hypertension Father Cancer Mother Relation Status Comments Father Unknown Mother Social History Tobacco Use Types Packs/Day Years Used Date Smoking Tobacco: Never Smokeless Tobacco: Never Tobacco Cessation:Counseling Given: Not Answered Alcohol Use Standard Drinks/Week Comments No 0 (1 standard drink = 0.6 oz pur e alcohol) Sex and Gender Information Value Date Recorded Sex Assigned at Not on file Legal Sex Male 5:07 PM EST Gender Identity Not on file Sexual Orientation Not on file Last Filed Vital Signs Vital Sign Reading Time Taken Comments Blood Pressure 132/80 11/22/2022 3:39 PM EDT Pulse 80 11/22/2022 3:39 PM EDT Temperature - - Respiratory Rate - - Oxygen Saturation 98% 03/13/2021 9:47 AM EDT Inhaled Oxygen Concentration - - Weight 117 kg (257 lb 3.2 oz) 11/22/2022 3:39 PM EDT Height - - Body Mass Index - - Plan of Treatment Health Maintenance Due Date Last Done Comments Pneumococcal Vaccine: Pediat rics (0 to 5 Years) and At-Risk Patients (6 to 64 Years) (1 of 2 - PCV) 09/05/1977 Hepatitis B Vaccine (1 of 3 - 19+ 3-dose series) 09/05 Colorectal Cancer Screening: Annual FOBT 09/05/2020 Colorectal Cancer Screening: Colonoscopy 09/05/2020 Colorectal Cancer Screening: Sigmoidoscopy 09/05/2020 Influenza Vaccine (#1) 2024 Insurance [facility] [place] [address] [facility] Care Teams Receivable Executive Relationship Specialty Start Date End Date Florentino Lujan NP [address] [place] [address] PCP - General Nurse Practitioner 01/03/21
== END 2024-06-25 11:30 | disposition home or self-care (01) ==
PROVIDERS: PCP Nurse Practitioner Family; Visit Provider Dietitian, Registered
DX: E11.9 Type 2 diabetes mellitus without complications (principal)

== ENCOUNTER → 2024-06-25 10:44 | Outpatient (BNVA) | payer OTHER, SELFPAY | PROVIDERS: PCP Nurse Practitioner Family; Visit Provider Dietitian, Registered | DX: E11.9 Type 2 diabetes mellitus without complications (principal); Z71.3 Dietary counseling and surveillance | CPT/HCPCS: 97803 ==

== ENCOUNTER 2024-07-01 11:20 | Outpatient (AMB) | payer OTHER, SELFPAY ==
--- NOTE | 2024-07-01 11:32 | HO.NEPHOV_ITS ---
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 He is known to have polycystic kidney disease. He does not have any flank pain, hematuria, renal stones, urinary infections, hematuria, pedal edema, nausea, vomiting, diarrhea, chest pain, shortness of breath, proximal nocturnal dyspnea or orthopnea. He is compliant with medications. He is unhappy about his weight. He does not take any nonsteroidal anti-inflammatories. All the systems were reviewed and were negative. [facility] Medical History Diabetes Hypothyroid Elevated cholesterol Fatty liver CKD (chronic kidney disease) Essential hypertension Surgical History History of nasal surgery Family History Father Depression Cancer of prostate Mental health disorder Mother Cancer Leukemia Maternal Grandfather No problems noted. Maternal Grandmother No problems noted. Paternal Grandfather No problems noted. Paternal Grandmother No problems noted. 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 Current occupational exposures/hazards: Yes Cognitive needs: No Hearing needs: No Vision needs: No Review of Systems Const All systems reviewed & are unremarkable except as noted in HPI and below Physical Exam Vital Signs: Last Vital Signs BP 122/70 07/01/24 11:51 BMI result Body Mass Index 38.1 Const General: comfortable and no acute distress Orientation/consciousness: patient oriented x3 HEENT Head: Yes normocephalic Mouth: Normal oral and palatal mucosa present Eyes EOM: EOMs intact bilaterally Neck Neck: Yes supple Resp Auscultation: clear to auscultation bilaterally Cardio Jugular venous distension: no JVD Rate: regular rate GI Palpation (GI): Soft to palpation Auscultation: normal bowel sounds General: Yes no CVA tenderness Back/Spine/Pelvis Back: no CVA tenderness Skin General skin exam: no rashes or lesions noted Neuro General: patient oriented x3 and moves all extremities Extrem General: Yes no pedal edema Results Reviewed Nephrology Results: No Data to Display Assessment & Plan Assessment & Plan (1) CKD (chronic kidney disease) stage 3, GFR 30-59 ml/min: Code(s): N18.30 - Chronic kidney disease, stage 3 unspecified Category: Medical Qualifiers: Chronic kidney disease stage 3 subtype: stage 3a (GFR 45-59) Qualified Code(s): N18.31 - Chronic kidney disease, stage 3a (2) Hypertension: Code(s): I10 - Essential (primary) hypertension Category: Medical Qualifiers: Hypertension type: primary hypertension Qualified Code(s): I10 - Essential (primary) hypertension Plan Francisco has polycystic kidney disease. His blood pressure is currently at goal. He does not take any nonsteroidal anti-inflammatories. He tries to maintain good hydration. He has not had any symptoms suggestive of any cyst rupture, cyst infection or renal stones. He needs to lose weight. He should remain well hydrated and minimize nonsteroidal anti-inflammatories. He may potentially be a candidate for tolvaptan in the future. His insurance did not approve SGLT2 i. He has not had any gene testing for PKD yet. All questions answered. Follow-up given Orders: Orders Creatinine 4 Months N18.31 - Chronic kidney disease, stage 3a Electrolytes 4 Months N18.31 - Chronic kidney disease, stage 3a Blood Urea Nitrogen 4 Months N18.31 - Chronic kidney disease, stage 3a Coding Level of Care Code Est Pt Level 4 (36136) Diagnoses Stage 3a chronic kidney disease N18.31 Chronic kidney disease stage 3 subtype: stage 3a (GFR 45-59) Primary hypertension I10 Hypertension type: primary hypertension
[2024-07-01 11:51] VITALS: BP 122/70; BMI 38.1
== END 2024-07-01 12:01 | disposition home or self-care (01) ==
PROVIDERS: PCP Nurse Practitioner Family; Visit Provider Internal Medicine Nephrology
DX: N18.31 Chronic kidney disease, stage 3a (principal); I10 Essential (primary) hypertension
CPT/HCPCS: 99214

== ENCOUNTER → 2024-07-01 11:20 | Outpatient (BNVA) | payer OTHER, SELFPAY | PROVIDERS: PCP Nurse Practitioner Family; Visit Provider Internal Medicine Nephrology ==

== ENCOUNTER 2024-08-06 10:48 | Outpatient (AMB) | payer OTHER, SELFPAY ==
--- NOTE | 2024-08-06 10:57 | A.OFFVIS_ITS ---
VS Expanded 08/06/24 10:58 Height 5 ft 9 in Weight 246 lb 14.684 oz BMI 36.5 Intake Visit Reasons: T2DM Allergies No Known Allergies Allergy (Verified 07/01/24 11:51) Nutrition Presentation Details: Pt presents for MNT for T2DM Pt reports working on reducing starches at dinner time Reports challenges at breakfast and when eating out Typical breakfast bagel egg/cheese and coffee with caramel Lunch: pizza or fast foods, reg soda Dinner: poultry and non starchy vegetables, water snack :fruit/yogurt, working onr educing on cookies/pastries BS Monitoring Most Recent Diabetes Results: No Data to Display PFS Medical History Diabetes Hypothyroid Elevated cholesterol Fatty liver CKD (chronic kidney disease) Essential hypertension Surgical History History of nasal surgery Family History Father Depression Cancer of prostate Mental health disorder Mother Cancer Leukemia Maternal Grandfather No problems noted. Maternal Grandmother No problems noted. Paternal Grandfather No problems noted. Paternal Grandmother No problems noted. 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 Current occupational exposures/hazards: Yes Cognitive needs: No Hearing needs: No Vision needs: No Assessment & Plan Assessment & Plan (1) Diabetes: Code(s): E11.9 - Type 2 diabetes mellitus without complications Category: Medical Plan: Wt: 114 Kg (03/19 ), 113.5 (04/19), 05/2024, 112kg (08/18) Est kcal needs as per MSJ: 2700 (40% carb, 30% protein/fat) Est fluid needs as per 25-30 ml/d: 3400 Est prot per day as per 1 g/kg bw: 114 Recommend fiber intake : 8-10 g per day and gradually increase to 25-28 g per day for women and 35-38 g for men or as tolerated Recommend sodium intake per day : less than 2300 mg Educated patient on: ( R = reviewed V = verbalizes understanding N/R = needs review N/A = not applicable * Food sources of carbohydrate, adequate serving sizes and its role in various health conditions: R * Differences between complex carbohydrates a simple carbohydrates, role of fiber in diet: R * Lean protein sources of foods: R V NR * Differences between types of fats and role in diet (mono on saturated fat fatty acids, saturated fatty acids, trans fats): R V N/R * Food sources of sodium in salt and healthy modifications for heart health in kidney health: R * Vitamins and minerals: R V N/R * Healthy plate method concept: R * Physical activity: Benefits a precaution: R V N/R * Hypoglycemia protocol (rule of 15): R V N/R * Dietary prevention of Hyperglycemia: R Patient Instructions: Restart checking your blood sugar fasting and 2 hours after dinner (goal fasting blood sugar less than 130 and 2 hours after any meal less than 180 unless otherwise specified by your doctor) Keep hydrated, have low sugar beverages , have a serving of fruit in place of a serving of bread goal weight 244-245 lbs Coding Level of Care Code Nutr Indiv Subseq (07371) Diagnoses Diabetes E11.9 Time Spent (min) 20
[2024-08-06 10:58] VITALS: BMI 36.5
--- OUTSIDE RECORDS SUMMARY | 2024-08-06 13:46 | XMS_ITS | Encounter Summary ---
Author Organization [facility] Address [address] [facility] [address] [place] [address] Phone Care Team Providers Care Powder Operator Name Role Phone Florentino Lujan NP Primary Care Provider [phone] Reason for Visit * Reason Comments Med Refill Encounter Details Date Type Department Care Team (Late st Contact Info) Description 05/07/2024 Refill [facility] [address] [facility] [address] [place] [phone] Uziel Hartley MD [address] [facility] [address] [place] [phone] Social History Tobacco Use Types Packs/Day Years [...] on filedocumented in this encounter Care Teams Powder Operator Relationship Specialty Start Date End Date Florentino Lujan NP [address] [place] [address] PCP - General Nurse Practitioner 01/03/21 documented as of this encounter
--- OUTSIDE RECORDS SUMMARY | 2024-08-06 13:46 | XMS_ITS | Encounter Summary ---
Author Organization [facility] Address [address] [place] [address] Phone Care Team Providers Care Air Turning Machine Feeder Name Role Phone Florentino Lujan NP Primary Care Provider [phone] Reason for Visit * Reason Onset Date Comments RX refill Carvedilol 04/16/2022 Encounter Details Date Type Department Care Team (Late st Contact Info) Description 04/16/2022 Telephone [facility] [address] [place] [phone] Nel Carranza RX refill Carvedilol Social History [...] on filedocumented in this encounter Care Teams Air Turning Machine Feeder Relationship Specialty Start Date End Date Florentino Lujan NP [facility] [place] [address] PCP - General Nurse Practitioner 01/03/21 documented as of this encounter
--- OUTSIDE RECORDS SUMMARY | 2024-08-06 13:46 | XMS_ITS | Clinical Summary ---
Author Organization [facility] Address [address] [address] Phone Care Team Providers Care Merchandise Planner Name Role Phone Florentino Lujan NP Primary Care Provider [phone] Allergies No known active allergies Medications atorvastatin [...] 01/03/2021 Hypertension 01/03/2021 Adult polycystic kidney 01/03/2021 Family History Medical History Relation Comments Cancer [...] Sigmoidoscopy 09/05/2020 Influenza Vaccine (#1) 2024 Insurance [id number] [employer] Care Teams Merchandise Planner Relationship Specialty Start Date End Date Florentino Lujan NP [address] [place] [address] PCP - General Nurse Practitioner 01/03/21
--- OUTSIDE RECORDS SUMMARY | 2024-08-06 13:46 | XMS_ITS | Data Portability ---
Author Organization [facility], [facility] Address [address] [place] [address] Assessment No assessment recorded. Plan of Treatment Reminders Order Date Submit Date Provider Last Modified By Organization Details Last Modified Time Details Appointments RECHECK 15 2024 08:30A Damian Neves PA-C Not available Not available Not available Lab None recorded . Referral None recorded . Procedures None recorded . Surgeries None recorded . Imaging None recorded . Medication Orders None recorded . Patient TargetsNo targets recorded. Patient InstructionsNo instructions recorded. Reason for Referral None Reported. Results Created Date Observation Date Name Description Value Unit Range Abnormal Flag Note LastModifiedBy Organization Detail LastModifiedTime 01/24/20 24 01/30/2020 imagi ng/di agnos tic resul t No observ ation record ed. [email or web address] Not Available 12/27 02:02:26 01/24/20 24 02/05/2020 imagi ng/di agnos tic resul t No observ ation record ed. [email or web address] Not Available 12/27 02:02:28 01/24/20 24 11/20/2019 imagi ng/di agnos tic resul t No observ ation record ed. [email or web address] Not Available 12/27 02:02:41 01/24/20 24 05/29/2021 imagi ng/di agnos tic resul t No observ ation record ed. [email or web address] Not Available 12/27 02:02:47 Result Notes None recorded. 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 Procedures Surgical History Date Name Laterality Status Provider Name and Address Organization Details Recorded Time 5 Knee Kenalog 40 1cc Injection, Bilateral completed Manny Neves PA-C [address], [place], [address], [facility] 07/07/2024 20:58:07 4 Gel-One Knee Injection completed Lauren Baker PA-C [address], [place], [address], [facility] 11/13/2023 09:48:46 4 Knee Kenalog 40 1cc Injection, Bilateral completed Lauren Baker PA-C [address], [place], [address], [facility] 10/15/2023 13:49:44 Imaging Results Imaging Date Name Status LastModified by Organiz ation Details LastModified Time 01/30/2020 imaging/diag nostic result completed Information not available 01/24/2024 02:02:26 02/05/2020 imaging/diag nostic result completed Information not available 01/24/2024 02:02:28 11/20/2019 imaging/diag nostic result completed Information not available 01/24/2024 02:02:41 05/29/2021 imaging/diag nostic result completed Information not available 01/24/2024 02:02:47 Procedure Notes None recorded. Medical Equipment None Reported. Allergies No known drug allergies Medications Name Sig Start Date Stop Date Status Note LastModified by Organization Details LastModified Time freestyle lite test strips strp active Not Available Not Available Not Available freestyle lancets misc active Not Available Not Available Not Available atorvastatin 80 mg tablet TAKE 1 TABLET BY MOUTH DAILY active Not Available Not Available Not Available carvedilol 12.5 mg tablet TAKE 1 TABLET BY MOUTH TWICE DAILY active Not Available Not Available No t Available FreeStyle Lancets 28 gauge DIRECTED ONCE DAILY active Not Available Not Available N ot Available spironolacto ne 25 mg tablet TAKE 2 TABLETS BY MOUTH DAILY active Not Available Not Available Not Available amoxicillin 500 mg tablet TAKE 1 TABLET BY MOUTH THREE TIMES DAILY UNTIL ALL TAKEN active Not Available Not Available No t Available levothyroxin e 100 mcg tablet TAKE 1 TABLET BY MOUTH DAILY active Not Available Not Available Not Available amlodipine 10 mg tablet TAKE 1 TABLET BY MOUTH EVERY DAY active Not Available Not Available No t Available bisacodyl 5 mg tablet,delay ed release TAKE 2 TABLETS BY MOUTH AT NOON BEFORE COLONOSCOPY active Not Available Not Available Not Available polyethylene glycol 3350 17 gram/dose oral powder MIX AND DRINK ONCE. TAKE DIRECTED THE DAY BEFORE PROCEDURE. active Not Available Not Available N ot Available losartan 100 mg tablet TAKE 1 TABLET BY MOUTH DAILY active Not Available Not Available Not Available metformin ER 500 mg tablet,exten ded release 24 hr TAKE 1 TABLET BY MOUTH TWICE DAILY active Not Available Not Available No t Available ezetimibe 10 mg tablet TAKE 1 TABLET BY MOUTH DAILY active Not Available Not Available Not Available omega-3 acid ethyl esters 1 gram capsule TAKE 2 CAPSULES BY MOUTH TWICE DAILY active Not Available Not Available No t Available FreeStyle Lite Meter kit USE TO TEST BLOOD SUGARS active Not Available Not Available No t Available FreeStyle Lite Strips DIRECTED ONCE DAILY active Not Available Not Available N ot Available cholecalcife rol (vitamin D3) 50 mcg (2,000 unit) tablet TAKE 1 TABLET BY MOUTH EVERY DAY active Not Available Not Available No t Available oxycodone HCl-oxycodon e-ASA as directed 1 tabs po q 4-6 hrs prn pain. DO NOT DRIVE WHILE TAKING THIS MEDICATION 2021 active Statu s: 'Curr ent'; Not Available Not Available Not Available Vitals Date Recorded Body height Body mass index (BMI) Body weight Provider Name and Address Organization Details Last Updated DateTime 10/15/2023 175.26 cm 36.9 kg/m2 983119.09 g ANNELISE CORONADO [place] - [facility] 10/15/2023 14:03:40 Date Recorded Body height Body mass index (BMI) Body weight Provider Name and Address Organization Details Last Updated DateTime 11/13/2023 175.26 cm 36.9 kg/m2 753067.09 g Tiki Marquez [place] - [facility] 11/13/2023 09:40:09 Date Recorded Body height Provider Name an d Address Organization Details Last Updated DateTime 07/08/2024 175.26 cm ALCIDES HOYT [facility] 07/08/2024 08:25:24 Social History None recorded. Functional Status None recorded. Mental Status None recorded. Family History Nothing Reported. Medical History No medical history recorded. Past Encounters Encounter ID Performer Location Encounter Start Date Encounter Closed Date Diagnosis/Indication Diagnosis SNOMED-CT Code Diagnosis ICD10 Code Diagnosis Note [id number] SHABNAM Vázquez [address] [place] [address] 10/15/2023 13:28:24 11/07/2023 10:28:33 Bilateral osteoarthritis of knees [id number] 63762 M17.0 [id number] SHABNAM Vázquez [address] [place] [address] 11/13/2023 09:27:05 12/10/2023 15:55:51 Bilateral osteoarthritis of knees [id number] 85641 M17.0 [id number] SHABNAM Miranda [facility] [address] [place] [address] 07/08/2024 08:22:34 07/22/2024 10:41:50 Osteoarthritis of left knee joint 8569740952 50784 M17.12 Osteoarthr itis of right knee joint 5773914477 50328 M17.11 Health Concerns Section Related Observation LastModified by Organization Detai ls LastModified Time None Recorded Concern Status LastModified by Organization Details LastModified Time None Recorded Advance Directives Directive None Recorded Payers Encounter Date Sequence Insurance Name Policy Number Policy Pena Covered Member ID Pena Member ID Guarantor Name 11/13/2023 1 [facility] [id number] Francisco Pérez Uri [id number] Francisco Beto Uri 07/08/2024 1 [facility] [id number] Francisco W Beto Grewal [id number] Francisco Beto Uri Notes Date Note Type Note Provider Name and Address Organization Details Recorded Time 10/15/2023 text/html I am seeing the patient today under the supervision of {{ Gilbert#}} who was available but who did not see the patient. HPI: Patient presents today regarding their {{right left bilatera l*}} knee. They have had difficulty up and down stairs sitting standing. Problems ambulating. Bduq-yfu-gnnlpmi medications are helping somewhat but not significantly. Pain is constant aching sometimes sharp pain with giving out sensations. Past family, medical, social history and review of systems has been reviewed, updated and is located in the patient? s chart. Examination: The patient is well appearing and in no apparent distress. Alert and oriented x3. Gait is symmetric. Examination of the {{right left bilatera l*}} knee reveals no evidence of any edema, erythema, or warmth. No Deformity. Range of motion of the knee limited with mild discomfort at the end ranges. Mild effusion. Does have some tenderness to palpation about the joint line. Negative Carol? s . Calf is supple and nontender. Neurovascularly intact distally. Impression: {{right left bilatera l*}} Knee osteoarthritis Plan: We discussed the role of conservative management including medications, physical therapy, injection and bracing. At this point the patient wishes to proceed with {{injection* prescrip tion PT}} today. See procedure documentation. They will follow up with us as scheduled. All questions answered Lauren Baker PA-C [address], [place], [address], [facility] 10/15/2023 14:22:35 11/13/2023 text/html Patient seen und er general supervision of {Jo Ann Alvarez * Gricel joe-}} who was available but who did not see the patient. Lauren Baker PA-C [address], [place], [address], [facility] 11/13/2023 09:49:17 07/08/2024 text/html I am seeing the patient today under the supervision of {Harish Talbert} } who was available but who did not see the patient. Chief Complaint The patient presents today for recheck of bilateral knee osteoarthritis. Is known to have knee arthritis treated conservatively to this point with {{1 2 3}} months relief of symptoms. Presents today for recheck secondary to increased knee pain. History of Present Illness ? Allergy list reviewed ? Medication list reviewed Past Medical/Surgical History Reviewed today, otherwise unchanged per intake sheet. Physical Findings General Appearance: ? ? ? Well developed. ? ? ? In no acute distress. Musculoskeletal System: Knee: General/bilateral: ? ? ? No laxity of the knee. Right Knee: ? Medial aspect was tender on palpation. ? ? ? No erythema. ? ? ? No warmth. Left Knee: ? Medial aspect was tender on palpation. ? ? ? No erythema. ? ? ? No warmth. Musculoskeletal Scales: General/bilateral: ? Mild effusion noted. Neurological: ? ? ? Oriented to time, place, and person. Gait And Stance: ? ? ? Normal. Psychiatric: ? ? ? Mood was appropriate to the affect. Left knee 0-120 degrees of flexion with discomfort. Right knee 0-120 degrees of flexion with discomfort. Assessment ? Osteoarthritis of knee -bilateral knees Plan More than 50% of todays visit was spent on direct patient counseling regarding their knee condition and treatment options both operative with knee arthroplasty and non-operative, including oral medications and injection therapy. After discussion, my clinical decision was to go forth with an intra-articular cortisone injection. After explaining risks and benefits, under meticulous aseptic technique, each knee was injected with, 1cc of Kenalog 40mgs and 4 cc of Marcaine 1/4%. They tolerated the procedures well. Post injection precautions reviewed. Follow up with us in 3 months for further discussion of total knee replacement surgery versus continued conservative treatment. Manny Neves PA-C [address] [address], [place], [address], [place] - [facility] 07/08/2024 08:37:05
== END 2024-08-06 11:25 | disposition home or self-care (01) ==
LOC: HO.ENCR 10:49
PROVIDERS: PCP Nurse Practitioner Family; Visit Provider Dietitian, Registered
DX: E11.9 Type 2 diabetes mellitus without complications (principal)

== ENCOUNTER → 2024-08-06 10:48 | Outpatient (BNVA) | payer OTHER, SELFPAY | PROVIDERS: PCP Nurse Practitioner Family; Visit Provider Dietitian, Registered | DX: I10 Essential (primary) hypertension (principal); I44.1 Atrioventricular block, second degree; E78.5 Hyperlipidemia, unspecified; E66.9 Obesity, unspecified; E11.9 Type 2 diabetes mellitus without complications; Z71.3 Dietary counseling and surveillance; Z79.84 Long term (current) use of oral hypoglycemic drugs; Z68.37 Body mass index [BMI] 37.0-37.9, adult | CPT/HCPCS: 93005; 97803 ==

== ENCOUNTER 2024-08-06 12:41 | Outpatient (AMB) | payer OTHER, SELFPAY ==
[2024-08-06 12:58] VITALS: BP 122/68; PULSE 95; BMI 37.8
--- NOTE | 2024-08-06 12:58 | MHC.OFFVIS ---
Vital Signs 08/06/24 12:58 Height 5 ft 9 in Weight 255 lb 11.779 oz BMI 37.8 BP 122/68 Blood Pressure Location Lt brachial Position Sitting Pulse 95 Pulse Source Monitor Intake Visit Reasons: 1 year f/u with EKG Allergies No Known Allergies Allergy (Verified 07/01/24 11:51) Medication List - Last Reconciled 08/06/24 by Harshil Pelaez NP atorvastatin 80 mg PO DAILY blood sugar diagnostic (FreeStyle Lite Strips) Test blood sugar once a day blood-glucose meter (FreeStyle Lite Meter kit) As directed carvedilol 12.5 mg PO BID 30 days cholecalciferol (vitamin D3) 50 mcg PO DAILY ezetimibe 10 mg PO DAILY lancets (FreeStyle Lancets) Test blood sugar once a day levothyroxine 100 mcg PO DAILY losartan 100 mg PO DAILY metformin ER 500 mg PO BID 90 days omega-3 acid ethyl esters 2 caps PO BID 90 days spironolactone 50 mg (2 x 25 mg) PO DAILY 90 days HPI Comments Details: This is a 53-year-old male patient with a significant medical history of hypertension, diabetes, dyslipidemia, and obesity presenting for a follow-up visit. He reports experiencing mild shortness of breath with climbing stairs but denies any symptoms during an hour long session on his stationary bike. the patient reports that he has had sleep study in the past which was negative for any sleep apnea, and denies any weight gain since. The patient is otherwise denying any exertional chest pain, palpitations, dizziness, fatigue, orthopnea, PND, leg edema, presyncope, or syncope. The patient also mentions difficulty sleeping throughout the night attributing it to his urinary frequency for which he has been followed by his PCP. He states that he has been trying to stay active. Most recent labs from the patient is now within goal and there seems to be some noncompliance with his medications as he states that he recently just resumed his taking his metformin. [facility] Medical History Diabetes Hypothyroid Elevated cholesterol Fatty liver CKD (chronic kidney disease) Essential hypertension Surgical History History of nasal surgery Family History Father Depression Cancer of prostate Mental health disorder Mother Cancer Leukemia Maternal Grandfather No problems noted. Maternal Grandmother No problems noted. Paternal Grandfather No problems noted. Paternal Grandmother No problems noted. 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: [employer] Current occupational exposures/hazards: Yes Cognitive needs: No Hearing needs: No Vision needs: No Review of Systems Const Denies weakness ENT Denies dizziness Card Denies chest pain, Denies chest pain with activity, Denies syncope, Denies rapid heart rate, Denies pedal edema, Denies edema, Denies leg edema, Denies lightheadedness, Denies palpitations, Denies dyspnea, Denies dyspnea on exertion and Denies orthopnea Resp Denies cough, Denies dyspnea and Denies dyspnea on exertion GI Denies hematochezia and Denies change in stool character Musc Denies abnormal gait, Denies muscle cramps, Denies muscle weakness, Denies numbness, Denies radiating pain into limb and Denies tingling Neuro Denies abnormal gait, Denies dizziness, Denies syncope, Denies numbness, Denies tingling and Denies weakness Endo Denies palpitations Physical Exam Vital Signs: Last Vital Signs Pulse 95 08/06/24 12:58 BP 122/68 08/06/24 12:58 BMI result Body Mass Index 37.8 Const General: cooperative, healthy appearing, comfortable and no acute distress Orientation/consciousness: patient oriented x3 HEENT Head: Yes normal to inspection Neck Neck: Yes normal visual inspection, Yes trachea midline and Yes supple Chest Chest palpation & inspection: normal inspection of the chest Resp Effort & Inspection: normal respiratory effort Auscultation: clear to auscultation bilaterally, no crackles, no rales, no rhonchi and no wheezes Cardio Jugular venous distension: no JVD Palpation: normal PMI Rate: regular rate Rhythm: regular rhythm Heart sounds: S1 normal heart sound present, S2 normal heart sound present, no click, no gallops, no murmurs and no rubs Peripheral pulses: Peripheral pulses 2+ throughout GI Inspection: Yes normal to inspection Palpation (GI): Soft to palpation Auscultation: normal bowel sounds Skin General skin exam: no rashes or lesions noted Neuro General: patient oriented x3 Extrem General: Yes normal to inspection, No no pedal edema and No calf tenderness Psych Appearance: grossly normal Mental Status: mental status grossly normal Speech and movement: Normal speech and movement present Office Procedures EKG Details: EKG today showed underlying sinus rhythm, rate 95 beats per minute, PACs, incomplete right bundle branch block, [place], [place]. [id number], Complete Assessment & Plan Assessment & Plan (1) Second degree heart block: Code(s): I44.1 - Atrioventricular block, second degree Category: Medical Plan: 10/06/2021- Holter monitor showed sinus rhythm with couple episodes of nocturnal Mobitz type 1 second-degree AV block, rare ectopy. 10/06/2021- patient underwent an ETT, achieving 92% MPHR, without anginal symptoms, without an EKG changes. 10/06/2021- echo showed normal LV systolic function with mild LVH with grade 1 diastolic dysfunction, possible basal inferior wall motion abnormality, and mildly dilated ascending aorta at 3.7 cm. EKG today shows normal sinus rhythm with PACs and incomplete right bundle branch block. We will update an echocardiogram. (2) Essential hypertension: Code(s): I10 - Essential (primary) hypertension Category: Medical Plan: Blood pressure today is well-controlled. Continue carvedilol, losartan and spironolactone. Advised to continue monitoring his blood pressures at home. Ideally, blood pressure goal less than 130/80. (3) Diabetes: Code(s): E11.9 - Type 2 diabetes mellitus without complications Category: Medical Plan: Most recent A1c 7.7, not within goal. Ideally,A1c goal for patient less than 7.0. Patient states he recently resumed taking his metformin. Patient states that there has been some discussions in the past about injectables but patient has been refusing this. Emphasize that this might be helpful for him as he will notes that even with dietary changes, he has not noticed any decrease in the A1c. this might be beneficial for the patient as he is also struggling with weight loss. Patient states he will discuss this again with his PCP at his next visit. (4) Dyslipidemia: Code(s): E78.5 - Hyperlipidemia, unspecified Category: Medical Plan: Ideally, patient's LDL should be less than 70. continue high-dose statin and Zetia therapy. Discussed maybe needing to add PCSK9 inhibitor in the future. Patient has upcoming labs with his PCP. (5) Obesity: Code(s): E66.9 - Obesity, unspecified Category: Medical Plan: Advised heart healthy diet, regular exercise, losing weight, aggressive management of his vascular risk factors. Patient will follow-up with us in 6 months, sooner if needed. In the interim, the patient will call us with any concerns or change in symptoms. This note was generated using voice recognition software. While every effort has been made to ensure accuracy and proper sales support coordinator, there may be occasional errors that could affect the content or meaning of the described symptoms. Orders: Orders CA echo transthoracic complete Today I10 - Essential (primary) hypertension AMB EKG-In Office Today I44.1 - Atrioventricular block, second degree Coding Level of Care Code Est Pt Level 4 (99271) Complex EM visit Add On G2211 Diagnoses Second degree heart block I44.1 Essential hypertension I10 Diabetes E11.9 Dyslipidemia E78.5 Obesity E66.9 CPT Codes EKG - CPT: 62276-[id number], Complete ([id number]) Time Spent (min) 34 Comment Time spent in reviewing the chart, test results, assessment, counseling and documentation.
--- OUTSIDE RECORDS SUMMARY | 2024-08-06 16:01 | XMS_ITS | Encounter Summary ---
Author Organization [facility] Address [address] [place] [address] Phone Care Team Providers Care Brim Setter Name Role Phone Florentino Lujan NP Primary Care Provider [phone] Reason for Visit * Reason Onset Date Comments RX refill Carvedilol 04/16/2022 Encounter Details Date Type Department Care Team (Late st Contact Info) Description 04/16/2022 Telephone [facility] [address] [place] [phone] Nel Carranza RX refill Carvedilol Social History [...] on filedocumented in this encounter Care Teams Brim Setter Relationship Specialty Start Date End Date Florentino Lujan NP [facility] [place] [address] PCP - General Nurse Practitioner 01/03/21 documented as of this encounter
--- OUTSIDE RECORDS SUMMARY | 2024-08-06 16:01 | XMS_ITS | Clinical Summary ---
Author Organization [facility] Address [address] [address] Phone Care Team Providers Care Sewing Machine Tester Name Role Phone Florentino Lujan NP Primary Care Provider [phone] Allergies No known active allergies Medications atorvastatin [...] Sigmoidoscopy 09/05/2020 Influenza Vaccine (#1) 2024 Insurance [id number] [employer] Care Teams Sewing Machine Tester Relationship Specialty Start Date End Date Florentino Lujan NP [address] [place] [address] PCP - General Nurse Practitioner 01/03/21
--- OUTSIDE RECORDS SUMMARY | 2024-08-06 16:01 | XMS_ITS | Encounter Summary ---
Author Organization [facility] Address [address] [facility] [address] [place] [address] Phone Care Team Providers Care Student Accounts Manager Name Role Phone Florentino Lujan NP Primary Care Provider [phone] Reason for Visit * Reason Comments Med Refill Encounter Details Date Type Department Care Team (Late st Contact Info) Description 05/07/2024 Refill [facility] [address] [facility] [address] [place] [phone] Uziel Hartley MD [address] [facility] [address] [place] [phone] Social History Tobacco Use Types Packs/Day Years [...] on filedocumented in this encounter Care Teams Student Accounts Manager Relationship Specialty Start Date End Date Florentino Lujan NP [address] [place] [address] PCP - General Nurse Practitioner 01/03/21 documented as of this encounter
== END 2024-08-06 13:34 | disposition home or self-care (01) ==
PROVIDERS: PCP Nurse Practitioner Family
DX: I44.1 Atrioventricular block, second degree (principal); I10 Essential (primary) hypertension; E11.9 Type 2 diabetes mellitus without complications; E78.5 Hyperlipidemia, unspecified; E66.9 Obesity, unspecified
CPT/HCPCS: 93010; 99214

== ENCOUNTER → 2024-09-03 08:44 | Outpatient (REF) | payer OTHER, SELFPAY ==
--- NOTE | 2024-09-03 08:48 | CA_ITS ---
Transthoracic Echocardiogram Patient (Last, First, Middle): Francisco Grewal, Gender: Male Date of : 1970 Age: 53 Procedure Date: 09/03/2024 Procedure Type: Transthoracic Echocardiogram Location: OP Height: 175.26 cm Weight: 115.67 kg BSA: 2.29 m2 Heart Rate: 84 bpm BP: 122 / 68 mmHg Paediatric Thoracic Physician: JOSE M Referring MD: Harshil Pelaez NP Plate Glass Installer: Corky Morales MD Symptoms: I10 - Essential (primary) hypertension Study Quality: Adequate ECG Rhythm: Sinus Conclusions: - 1. Normal LV ejection fraction 55-60% with mild LVH with grade 1 diastolic dysfunction 2. Normal cardiac valvular Dopplers 3. Mildly dilated ascending aorta at 4.1 cm 4. No gross pericardial effusion Findings Left Ventricle Normal left ventricular size and systolic function. There is mildly increased left ventricular wall thickness. The visually estimated ejection fraction is between 55-60%. Spectral Doppler is indicative of an impaired relaxation filling pattern. E/E prime ratio is <8, consistent with normal filling pressures. Evidence suggests grade I (mild) diastolic dysfunction. There is moderate septal asymmetric hypertrophy. Right Ventricle Normal right ventricular cavity size and systolic function. Atria The left atrium is normal in size. There is no evidence of interatrial shunt. The right atrium is normal in size. Aortic Valve Normal aortic valve structure and function. There is no aortic valve stenosis. There is no aortic valve regurgitation. Mitral Valve Normal mitral valve structure and function. There is trace mitral valve regurgitation. There is no mitral valve stenosis. Pulmonic Valve The pulmonic valve is likely normal. There is trace pulmonic valve regurgitation. Tricuspid Valve Normal tricuspid valve structure. Tricuspid regurgitation envelope is inadequate for calculation of right ventricular systolic pressure. Normal right atrial pressure. Great Vessels The pulmonary artery was not well visualized. There is mild dilatation of the ascending aorta measuring 4.00 cm. Venous The inferior vena cava is normal in size and collapses greater than 50% with inspiration. Pericardium/Pleural There is no evidence of pericardial effusion. Prior Study Comparison Changes noted compared to prior study dated: 10/06/2021. Ascending aorta is further dilated at 4 cm Measurements 2D Linear Measurements IVSd: 1.53 0.6-0.9/0.6-1.0 cm LVIDd: 4.68 3.9-5.3/4.2-5.9 cm LVIDd Index: 2.04 2.4-3.2/2.2-3.1 cm/m2 LVIDs: 3.04 2.0-3.6 cm LVPWd: 1.26 0.7-1.1 cm LA Diam: 3.90 2.7-3.8/3.0-4.0 cm LAIDs Index: 1.70 1.5-2.3 cm/m2 LV Mass: 326.90 67-162/88-224 g LV Mass Index: 142.75 43-95/49-115 g/m2 LVOT Diam: 2.30 3.0+(-)1.3 cm Mitral Valve MV Pk E: 0.40 MV PK A: 0.56 MV Decel Time: 223.00 E/A: 0.70 E'Lateral: 7.83 E'Medial: 4.68 E/E' Med: 8.50 E/E' Lat: 5.10 PHT: 65.00 MVA PHT: 3.38 Decel [place]: 1.78 Aortic Valve AoV Pk Ko: 1.12 AoV Pk Grad: 5.00 RODNEY: 3.00 LVOT LVOT Pk Ko: 0.82 LVOT Mn Ko: 0.53 LVOT VTI: 0.12 LVOT Pk Grad: 3.00 LVOT Mn Grad: 1.00 LVOT Diam: 2.30 LVOT Area: 4.15 Diastolic Function MV Pk E: 0.40 MV Pk A: 0.56 E/A: 0.70 E'Medial: 4.68 E/E' Med: 8.50 E' Laterial: 7.83 E/E' Lat: 5.10 Right Ventricle TAPSE (mm): 17.50 TVS' Ko: 12.90 Tricuspid Valve RA Press: 3.00 Great Vessels Aorta Sinus of Valsalva: 3.20 2.0-3.5 cm Ao Asc: 4.00 2.1-3.4 cm Ao Arch: 2.70 Pulmonary Veins Pulm Vein S/D 1.60 Pulmonary Valve PV Pk Ko: 0.73 Peak PV Grad: 2.00 Updated in Other Vendor System with Status of Final Corky Morales MD electronically signed on 09/04/2024 10:08:16 AM with status of Final
--- OUTSIDE RECORDS SUMMARY | 2024-09-03 09:06 | XMS_ITS | Encounter Summary ---
Author Organization [facility] Address [address] [facility] [address] [place] [address] Phone Care Team Providers Care Handmade Tile Artist Name Role Phone Florentino Lujan NP Primary Care Provider [phone] Reason for Visit * Reason Comments Med Refill Encounter Details Date Type Department Care Team (Late st Contact Info) Description 05/07/2024 Refill [facility] [address] [facility] [address] [place] [phone] Uziel Hartley MD [address] [facility] [address] [place] [phone] Social History Tobacco Use Types Packs/Day Years [...] on filedocumented in this encounter Care Teams Handmade Tile Artist Relationship Specialty Start Date End Date Florentino Lujan NP [address] [place] [address] PCP - General Nurse Practitioner 01/03/21 documented as of this encounter
--- OUTSIDE RECORDS SUMMARY | 2024-09-03 09:06 | XMS_ITS | Encounter Summary ---
Author Organization [facility] Address [address] [place] [address] Phone Care Team Providers Care Oil Inspector Name Role Phone Florentino Lujan NP Primary Care Provider [phone] Reason for Visit * Reason Onset Date Comments RX refill Carvedilol 04/16/2022 Encounter Details Date Type Department Care Team (Late st Contact Info) Description 04/16/2022 Telephone [facility] [address] [place] [phone] Nel Carranza RX refill Carvedilol Social History [...] on filedocumented in this encounter Care Teams Oil Inspector Relationship Specialty Start Date End Date Florentino Lujan NP [address] [place] [address] PCP - General Nurse Practitioner 01/03/21 documented as of this encounter
--- OUTSIDE RECORDS SUMMARY | 2024-09-03 09:06 | XMS_ITS | Clinical Summary ---
Author Organization [facility] Address [address] [address] Phone Care Team Providers Care Security Control Assessor Name Role Phone Florentino Lujan NP Primary Care Provider [phone] Allergies No known active allergies Medications atorvastatin [...] Due Date Last Done Comments Pneumococcal Vaccine: Peds ( 0 to 5 Years) and At-Risk Patients (6 to 49 Years) (1 of 2 - PCV) 09/05/1977 Hepatitis B Vaccine (1 of 3 - 19+ 3-dose series) 09/05 Colorectal Cancer Screening: Annual FOBT 09/05/2020 Colorectal Cancer Screening: Colonoscopy 09/05/2020 Colorectal Cancer Screening: Sigmoidoscopy 09/05/2020 Influenza Vaccine (Season Ended) 2025 Insurance [facility] [employer] Care Teams Security Control Assessor Relationship Specialty Start Date End Date Florentino Lujan NP [address] [place] [address] PCP - General Nurse Practitioner 01/03/21
--- OUTSIDE RECORDS SUMMARY | 2024-09-03 09:06 | XMS_ITS | Data Portability ---
Author Organization [facility], [facility] Address [address] [place] [address] Assessment No assessment recorded. Plan of Treatment [...] horn of medial meniscus of left knee [id number] 68164 Active 2019 Problem Code: M23.222; Problem Code Type: ICD-10; Status: 'A'; Not Available [facility] 11:14:00 Problem Notes None recorded. Procedures Surgical History Date Name Laterality Status Provider Name and Address Organization Details Recorded Time 5 Knee Kenalog 40 1cc Injection, Bilateral completed Manny Neves PA-C [address], [place], [address], [facility] 07/07/2024 20:58:07 4 Gel-One Knee Injection completed Lauren Baker PA-C [address], [place], [address], [facility] 11/13/2023 09:48:46 4 Knee Kenalog 40 1cc Injection, Bilateral completed Lauren Baker PA-C [address], [place], [address], [facility] 10/15/2023 13:49:44 Imaging Results [...] Updated DateTime 10/15/2023 175.26 cm 36.9 kg/m2 368945.09 g ANNELISE CORONADO [place] - [facility] 10/15/2023 14:03:40 Date Recorded Body height Body mass index (BMI) Body weight Provider Name and Address Organization Details Last Updated DateTime 11/13/2023 175.26 cm 36.9 kg/m2 502483.09 g Tiki Marquez [place] - [facility] 11/13/2023 09:40:09 Date Recorded Body height Provider Name an d Address Organization Details Last Updated DateTime 07/08/2024 175.26 cm ALCIDES HOYT [facility] 07/08/2024 08:25:24 Social History None recorded. Functional Status None recorded. Mental Status None recorded. Family History Nothing Reported. Medical History No medical history recorded. Past Encounters Encounter ID Performer Location Encounter Start Date Encounter Closed Date Diagnosis/Indication Diagnosis SNOMED-CT Code Diagnosis ICD10 Code Diagnosis Note [id number] SHABNAM Vázquez [address] [place] [address] 10/15/2023 13:28:24 11/07/2023 10:28:33 Bilateral osteoarthritis of knees 6217242223 60255 M17.0 [id number] SHABNAM Vázquez [address] [place] [address] 11/13/2023 09:27:05 12/10/2023 15:55:51 Bilateral osteoarthritis of knees 1063820245 74547 M17.0 [id number] SHABNAM Miranda Clinical [address] [place] [address] 07/08/2024 08:22:34 07/22/2024 10:41:50 Osteoarthritis of left knee joint 6265826587 04884 M17.12 Osteoarthr itis of right knee joint 1999010378 97180 M17.11 Health Concerns Section Related Observation LastModified by Organization Detai ls LastModified Time None Recorded Concern Status LastModified by Organization Details LastModified Time None Recorded Advance Directives Directive None Recorded Payers Encounter Date Sequence Insurance Name Policy Number Policy Pena Covered Member ID Pena Member ID Guarantor Name 11/13/2023 1 [facility] [id number] Francisco Pérez Uri [id number] Francisco Beto Uri 07/08/2024 1 [facility] [id number] Francisco W Beto Grewal [id number] Francisco Beto Uri Notes Date Note Type Note Provider Name and Address Organization Details Recorded Time 10/15/2023 text/html I am seeing the patient today under the supervision of {{ Gilbert#}} who was available but who did not see the patient. HPI: Patient presents today regarding their {{right left bilatera l*}} knee. They have had difficulty up and down stairs sitting standing. Problems ambulating. Evky-xdl-mukdbub medications are helping somewhat but not significantly. [...] All questions answered Lauren Baker PA-C [address], [place], [address], [facility] 10/15/2023 14:22:35 11/13/2023 text/html Patient seen und er general supervision of {Jo Ann Alvarez * Gricel joe-}} who was available but who did not see the patient. Lauren Baker PA-C [address], [place], [address], [facility] 11/13/2023 09:49:17 07/08/2024 text/html I am seeing [...] continued conservative treatment. Manny Neves PA-C [address] [facility] [address], [place], [address], [place] [facility] 07/08/2024 08:37:05
[2024-09-03 11:15] LABS: Anion Gap 13 (12-20); Blood Urea Nitrogen 20 mg/dL (9-16); Carbon Dioxide 26 mmol/L (22-29); Chloride 104 mmol/L (96-108); Estimated Glomerular Filt Rate 52; Potassium 4.3 mmol/L (3.3-5.1); Sodium 139 mmol/L (135-145)
== END ==
LOC: HO.CARD 08:44
PROVIDERS: Internal Medicine Nephrology; PCP Nurse Practitioner Family
DX: I12.9 Hypertensive chronic kidney disease with stage 1 through stage 4 chronic kidney disease, or unspecified chronic kidney disease (principal); N18.31 Chronic kidney disease, stage 3a
CPT/HCPCS: 36415; 80051; 82565; 84520; 93306

== ENCOUNTER → 2024-09-03 08:48 | Outpatient (BNV) | payer OTHER, SELFPAY | PROVIDERS: PCP Nurse Practitioner Family; Visit Provider Internal Medicine Cardiovascular Disease | DX: I34.0 Nonrheumatic mitral (valve) insufficiency (principal); I36.1 Nonrheumatic tricuspid (valve) insufficiency | CPT/HCPCS: 93306 ==

== ENCOUNTER 2024-10-07 09:29 | Outpatient (REF) | payer OTHER, SELFPAY ==
--- OUTSIDE RECORDS SUMMARY | 2024-10-07 10:10 | XMS_ITS | Clinical Summary ---
Author Organization [facility] Address [address] [address] Phone Care Team Providers Care Sap Plant Maintenance Consultant Name Role Phone Florentino Lujan NP Primary Care Provider [phone] Allergies No known active allergies Medications atorvastatin [...] Health Maintenance Due Date Last Done Comments Hepatitis B Vaccine (1 of 3 - 19+ 3-dose series) 09/05 Pneumococcal Vaccine: 50+ Years (1 of 2 - PCV) 991 Colorectal Cancer Screening: Annual FOBT 09/05/2020 Colorectal Cancer Screening: Colonoscopy 09/05/2020 Colorectal Cancer Screening: Sigmoidoscopy 09/05/2020 Influenza Vaccine (Season Ended) 2025 Insurance [facility] [place] [address] [facility] Care Teams Sap Plant Maintenance Consultant Relationship Specialty Start Date End Date Florentino Lujan NP [address] [place] [address] PCP - General Nurse Practitioner 01/03/21
--- OUTSIDE RECORDS SUMMARY | 2024-10-07 10:10 | XMS_ITS | Encounter Summary ---
Author Organization [facility] Address [address] [facility] [address] [place] [address] Phone Care Team Providers Care Video Network Engineer Name Role Phone Florentino Lujan NP Primary Care Provider Reason for Visit * Reason Comments Med Refill Encounter Details Date Type Department Care Team (Late st Contact Info) Description 05/07/2024 Refill [facility] [address] [facility] [address] [place] [phone] Uziel Hartley MD [address] [facility] [address] [place] [phone] Social History Tobacco Use Types Packs/Day Years [...] on filedocumented in this encounter Care Teams Video Network Engineer Relationship Specialty Start Date End Date Florentino Lujan NP [address] [place] [address] PCP - General Nurse Practitioner 01/03/21 documented as of this encounter
--- OUTSIDE RECORDS SUMMARY | 2024-10-07 10:10 | XMS_ITS | Encounter Summary ---
Author Organization [facility] Address [address] [facility] [address] [place] [address] Phone Care Team Providers Care Telephone Solicitor Name Role Phone Florentino Lujan NP Primary Care Provider [phone] Reason for Visit * Reason Onset Date Comments RX refill Carvedilol 04/16/2022 Encounter Details Date Type Department Care Team (Late st Contact Info) Description 04/16/2022 Telephone [facility] [address] [facility] [address] [place] [phone] Nel Carranza RX refill Carvedilol Social History [...] on filedocumented in this encounter Care Teams Telephone Solicitor Relationship Specialty Start Date End Date Florentino Lujan NP [facility] [address] PCP - General Nurse Practitioner 01/03/21 documented as of this encounter
--- OUTSIDE RECORDS SUMMARY | 2024-10-07 10:11 | XMS_ITS | Data Portability ---
Author Organization [facility], [facility] [place] Address [address] [place] [address] Assessment No assessment recorded. Plan of Treatment Reminders Order Date Submit Date Provider Last Modified By Organization Details Last Modified Time Details Appointments RECHECK 2024 08:30A Damian Neves PA-C Not available Not available Not available RECHECK 2024 09:15A Damian Neves PA-C Not available Not available [...] horn of medial meniscus of left knee [id number] 26753 Active 2019 Problem Code: M23.222; Problem Code Type: ICD-10; Status: 'A'; Not Available [facility] 4 11:14:00 Problem Notes None recorded. Procedures Surgical History Date Name Laterality Status Provider Name and Address Organization Details Recorded Time 5 Knee Kenalog 40 1cc Injection, Bilateral completed Manny Neves PA-C [address], [place], [address], [facility] 10/07/2024 07:35:25 5 Knee Kenalog 40 1cc Injection, Bilateral completed Manny Neves PA-C [address], [place], [address], [facility] 07/07/2024 20:58:07 4 Gel-One Knee Injection completed Lauren Baker PA-C [address], [place], [address], [facility] 11/13/2023 09:48:46 4 Knee Kenalog 40 1cc Injection, Bilateral completed Lauren Baker PA-C [address], [place], [address], [facility] 10/15/2023 13:49:44 Imaging [...] Not Available Not Available N ot Available penicillin V potassium 500 mg tablet TAKE 1 TABLET BY MOUTH TWICE DAILY FOR 10 DAYS active Not Available Not Available No t Available spironolacto ne 25 mg tablet TAKE [...] Updated DateTime 10/15/2023 175.26 cm 36.9 kg/m2 061624.09 g ANNELISE CORONADO [facility] 10/15/2023 14:03:40 Date Recorded Body height Body mass index (BMI) Body weight Provider Name and Address Organization Details Last Updated DateTime 11/13/2023 175.26 cm 36.9 kg/m2 432173.09 g Tiki Marquez [facility] 11/13/2023 09:40:09 Date Recorded Body height Provider Name an d Address Organization Details Last Updated DateTime 07/08/2024 175.26 cm ALCIDES HOYT [facility] 07/08/2024 08:25:24 Date Recorded Body height Body mass index (BMI) Body weight Provider Name and Address Organization Details Last Updated DateTime 10/07/2024 175.26 cm 36.9 kg/m2 164935.09 g Francesca Wyatt [facility] 10/07/2024 08:25:39 Social History None recorded. Functional Status None recorded. Mental Status None recorded. Family History Nothing Reported. Medical History No medical history recorded. Past Encounters Encounter ID Performer Location Encounter Start Date Encounter Closed Date Diagnosis/Indication Diagnosis SNOMED-CT Code Diagnosis ICD10 Code Diagnosis Note [id number] SHABNAM Vázquez [address] [place] [address] 10/15/2023 13:28:24 11/07/2023 10:28:33 Bilateral osteoarthritis of knees [id number] 92045 M17.0 [id number] SHABNAM Vázquez [address] [place] [address] 11/13/2023 09:27:05 12/10/2023 15:55:51 Bilateral osteoarthritis of knees 0258723079 72919 M17.[id number] [place] [address] 07/08/2024 08:22:34 07/22/2024 10:41:50 Osteoarthritis of left knee joint 3755715596 21895 M17.12 Osteoarthr itis of right knee joint 2772220848 10384 M17.11 [id number] SHABNAM Miranda [address] [place] [address] 10/07/2024 08:19:30 10/07/2024 08:57:22 Osteoarthritis of right knee joint 2834472885 08002 M17.11 Osteoarthr itis of left knee joint 8824658074 02259 M17.12 Health Concerns Section Related Observation LastModified by Organization Detai ls LastModified Time None Recorded Concern Status LastModified by Organization Details LastModified Time None Recorded Advance Directives Directive None Recorded Payers Encounter Date Sequence Insurance Name Policy Number Policy Pena Covered Member ID Pena Member ID Guarantor Name 11/13/2023 1 [facility] [id number] Francisco W W Grewal [id number] Francisco W Grewal 07/08/2024 1 [facility] [id number] Francisco W W Grewal [id number] Francisco W Grewal 10/07/2024 1 [facility] [id number] Francisco W W Grewal [id number] Francisco W Grewal Notes Date Note Type Note Provider Name and Address Organization Details Recorded Time 10/15/2023 text/html I am seeing the patient today under the supervision of {{ Gilbert#}} who was available but who did not see the patient. HPI: Patient presents today regarding their {{right left bilatera l*}} knee. They have had difficulty up and down stairs sitting standing. Problems ambulating. Bfsk-icv-gvonemg medications are helping somewhat but not significantly. [...] All questions answered Lauren Baker PA-C [address], [place], [address], [facility] 10/15/2023 14:22:35 11/13/2023 text/html Patient seen und er general supervision of {Jo Ann Alvarez * Gricel joe-}} who was available but who did not see the patient. Lauren Baker PA-C [address], [place], [address], [facility] 11/13/2023 09:49:17 07/08/2024 text/html I am seeing the patient today under the supervision of {{Makayla Talbert} } who was available but who [...] continued conservative treatment. Manny Neves PA-C [address] [facility] [address], [place], [address], [facility] 07/08/2024 08:37:05 10/07/2024 text/html I am seeing the patient today under the supervision of {{Tess* Gali} } who was available but who did not see the patient. Chief ComplaintThe patient presents today for recheck of bilateral knee osteoarthritis. Is known to have knee arthritis treated conservatively to this point with {{1* 2 3}} months relief of symptoms. Presents today for recheck secondary to increased knee pain. History of Present Illness? Allergy list reviewed ? Medication list reviewed Past Medical/Surgical HistoryReviewed today, otherwise unchanged per intake sheet. Physical Findings General Appearance:? ? ? Well developed. ? ? ? In no acute distress.Musculoskele jett System:Knee:General/b ilateral: ? ? ? No laxity of the knee.Right Knee: ? Medial aspect was tender on palpation. ? ? ? No erythema. ? ? ? No warmth.Left Knee: ? Medial aspect was tender on palpation. ? ? ? No erythema. ? ? ? No warmth.Musculoskeleta l Scales:General/bilate ral: ? Mild effusion noted.Neurological:? ? ? Oriented to time, place, and person.Gait And Stance: ? ? ? Normal.Psychiatric:? ? ? Mood was appropriate to the affect. Left knee 0-120 degrees of flexion with discomfort.Right knee 0-120 degrees of flexion with discomfort. Assessment? Osteoarthritis of knee -bilateral knees PlanMore than 50% of todays visit was spent [...] continued conservative treatment. Manny Neves PA-C [address] [facility] [address], [place], [address], [facility] 10/07/2024 08:57:21
[2024-10-07 13:36] LABS: MANUAL DIFF FLAG NO
[2024-10-07 13:56] LABS: Basophils Percent Auto 0.3 % (0-2); Eosinophils Absolute Auto 0.2 X10*3/uL (0.0-0.4); Eosinophils Percent Auto 2.5 % (0-4); Hematocrit 44.5 % (42.0-52.0); Hemoglobin 14.6 g/dl (14.0-18.0); Imm Gran Abs Auto 0.02 X10*3/uL (0.00-0.03); Imm Gran Pct Auto 0.3 % (0.0-0.4); Lymphocytes Absolute Auto 1.8 X10*3/uL (1.2-4.9); Lymphocytes Percent Auto 24.6 % (20-40); Mean Corpuscular HGB Conc 32.8 g/dl (31.0-36.0); Mean Corpuscular Hemoglobin 28.2 pg (27.0-33.0); Mean Corpuscular Volume 86.1 fL (80.0-98.0); Mean Platelet Volume 9.6 fL (9.4-12.4); Monocytes Absolute Auto 0.7 X10*3/uL (0.1-1.2); Monocytes Percent Auto 10.4 % (2-11); Neutrophils Absolute Auto 4.4 x10*3/uL (2.0-8.3); Neutrophils Percent Auto 61.9 % (45-73); Platelet Count 211 X10*3/uL (160-400); Red Blood Count 5.17 X10*6/uL (4.60-5.80); Red Cell Distribution Width 13.2 % (11.0-16.0); White Blood Count 7.1 X10*3/uL (4.8-10.8)
[2024-10-07 14:04] LABS: Appearance Urine Turbid; Color Urine Yellow; Glucose Urine UA Negative (Negative); Leukocyte Esterase Urine Negative (Negative); Nitrite Urine Negative (Negative); Specific Gravity - Urine 1.015 (1.005-1.025); Urine Blood Negative (Negative); Urine Ketones Negative (Negative); Urine Protein Negative (Neg-Trace)
[2024-10-07 14:33] LABS: Alanine Aminotransferase 46 U/L (0-40); Albumin Level 4.4 g/dL (3.5-5.0); Alkaline Phosphatase 47 U/L (39-117); Anion Gap 14 (12-20); Aspartate Amino Transferase 38 U/L (5-37); Bilirubin Total 0.6 mg/dL (0.0-1.0); Blood Urea Nitrogen 24 mg/dL (9-16); Calcium 9.1 mg/dL (8.4-10.2); Carbon Dioxide 23 mmol/L (22-29); Chloride 106 mmol/L (96-108); Cholesterol 126 mg/dL (<200); Estimated Glomerular Filt Rate 51; Glucose Fasting 149 mg/dL (60-99); HDL Cholesterol 31 mg/dL (>40); Potassium 4.7 mmol/L (3.3-5.1); Sodium 138 mmol/L (135-145); Total Protein 6.9 g/dL (6.5-8.0); Triglycerides 401 mg/dL (<150)
[2024-10-07 14:36] LABS: TSH reflex Free T4 1.25 uIU/mL (0.32-4.0)
== END 2024-10-07 09:30 | disposition home or self-care (01) ==
LOC: HO.HMGCLDS 09:29
PROVIDERS: PCP Nurse Practitioner Family; Visit Provider Nurse Practitioner Family
DX: Z00.00 Encounter for general adult medical examination without abnormal findings (principal); E78.5 Hyperlipidemia, unspecified; E11.22 Type 2 diabetes mellitus with diabetic chronic kidney disease; N18.9 Chronic kidney disease, unspecified; K76.0 Fatty (change of) liver, not elsewhere classified; E78.1 Pure hyperglyceridemia; Z80.42 Family history of malignant neoplasm of prostate
CPT/HCPCS: 36415; 80053; 80061; 81003; 84443; 85025; 96127

== ENCOUNTER 2024-10-07 14:15 | Outpatient (AMB) | payer OTHER, SELFPAY ==
--- OUTSIDE RECORDS SUMMARY | 2024-10-07 14:18 | XMS_ITS | Encounter Summary ---
Author Organization [facility] Address [address] [facility] [address] [place] [address] Phone Care Team Providers Care Tax Consultant Name Role Phone Florentino Lujan NP Primary Care Provider [phone] Reason for Visit * Reason Comments Med Refill Encounter Details Date Type Department Care Team (Late st Contact Info) Description 05/07/2024 Refill [facility] 100 [facility] [address] [place] [phone] Uziel Hartley MD [address] [facility] [address] [place] [phone] Social History Tobacco Use Types Packs/Day Years [...] on filedocumented in this encounter Care Teams Tax Consultant Relationship Specialty Start Date End Date Florentino Lujan NP [address] [place] [address] PCP - General Nurse Practitioner 01/03/21 documented as of this encounter
--- OUTSIDE RECORDS SUMMARY | 2024-10-07 14:18 | XMS_ITS | Clinical Summary ---
Author Organization [facility] Address [address] [address] Phone Care Team Providers Care Personal Property Appraiser Name Role Phone Florentino Lujan NP Primary Care Provider [phone] Allergies No known active allergies Medications atorvastatin [...] 09/05/2020 Influenza Vaccine (Season Ended) [address] [facility] [place] [address] [facility] Care Teams Personal Property Appraiser Relationship Specialty Start Date End Date Florentino Lujan NP [address] [place] [address] PCP - General Nurse Practitioner 01/03/21
--- OUTSIDE RECORDS SUMMARY | 2024-10-07 14:18 | XMS_ITS | Continuity of Care Document ---
Author Organization [facility] Address [address] [place] [address] Assessment No assessment recorded. Plan of Treatment [...] instructions recorded. Reason for Referral None Reported. Problems Name Problem SNOMED Code Status Onset Date Resolution Date Notes Provider Name and Address Organization Details Recorded Time Derangeme nt of posterior horn of medial meniscus of left knee [id number] 99910 Active 2019 Problem Code: M23.222; Problem Code Type: ICD-10; Status: 'A'; Not Available [facility] 4 11:14:00 Problem Notes None recorded. Procedures Surgical History Date Name Laterality Status Provider Name and Address Organization Details Recorded Time 5 Knee Kenalog 40 1cc Injection, Bilateral completed Manny Neves PA-C [address], [place], [address], [facility] 10/07/2024 07:35:25 5 Knee Kenalog 40 1cc Injection, Bilateral completed Manny Neves PA-C [address], [place], [address], [facility] 07/07/2024 20:58:07 4 Gel-One Knee Injection completed Lauren Baker PA-C [address], [place], [address], [facility] 11/13/2023 09:48:46 4 Knee Kenalog 40 1cc Injection, Bilateral completed Lauren Baker PA-C [address], [place], [address], [facility] 10/15/2023 13:49:44 Imaging Results None recorded. Procedure Notes None recorded. Medical Equipment None [...] Updated DateTime 10/07/2024 175.26 cm 36.9 kg/m2 546021.09 g Francesca Wyatt [place] [facility] [place] [facility] 10/07/2024 08:25:39 Social History None recorded. Functional Status None recorded. Mental Status None recorded. Family History Nothing Reported. Medical History No medical history recorded. Past Encounters Encounter ID Performer Location Encounter Start Date Encounter Closed Date Diagnosis/Indication Diagnosis SNOMED-CT Code Diagnosis ICD10 Code Diagnosis Note [id number] SHABNAM Miranda [address] [facility] [place] [address] 10/07/2024 08:19:30 10/07/2024 08:57:22 Osteoarthritis of right knee joint 1891678988 39862 M17.11 Osteoarthr itis of left knee joint 4776840069 07895 M17.12 Health Concerns Section Related Observation LastModified by Organization Detai ls LastModified Time None Recorded Concern Status LastModified by Organization Details LastModified Time None Recorded Payers Encounter Date Sequence Insurance Name Policy Number Policy Pena Covered Member ID Pena Member ID Guarantor Name 10/07/2024 1 [facility] [id number] Francisco Grewal [id number] Francisco Grewal Notes Date Note Type Note Provider Name and Address Organization Details Recorded Time 10/07/2024 text/html I am seeing the patient [...] continued conservative treatment. Manny Neves PA-C [address] [facility] [address], [place], [address], [facility] [place] [facility] 10/07/2024 08:57:21
--- OUTSIDE RECORDS SUMMARY | 2024-10-07 14:18 | XMS_ITS | Encounter Summary ---
Author Organization [facility] Address [address] [place] [address] Phone Care Team Providers Care Ad Writer Name Role Phone Florentino Lujan NP Primary Care Provider [phone] Reason for Visit * Reason Onset Date Comments RX refill Carvedilol 04/16/2022 Encounter Details Date Type Department Care Team (Late st Contact Info) Description 04/16/2022 Telephone [facility] [address] [facility] [place] [phone] Nel Carranza RX refill Carvedilol Social History [...] on filedocumented in this encounter Care Teams Ad Writer Relationship Specialty Start Date End Date Florentino Lujan NP [facility] [place] [address] PCP - General Nurse Practitioner 01/03/21 documented as of this encounter
--- NOTE | 2024-10-07 14:24 | A.OFFPC_ITS ---
Vital Signs 10/07/24 14:26 Height 5 ft 9 in Weight 251 lb BMI 37.1 BP 126/80 Blood Pressure Location Lt brachial Position Sitting Respiration 20 Pulse 100 Pulse Source Pulse Oximeter Temp 97.9 F Temp Source Oral Pulse Oximetry (%) 95 Oxygen Delivery Method Room Air Intake Visit Reasons: Annual PE Intake Note: Pt is here today for PE. Allergies No Known Allergies Allergy (Verified 10/07/24 14:26) Medication List - Last Reconciled 10/07/24 by JORDAN Dunn atorvastatin 80 mg PO DAILY blood sugar diagnostic (FreeStyle Lite Strips) Test blood sugar once a day blood-glucose meter (FreeStyle Lite Meter kit) As directed carvedilol 12.5 mg PO BID 30 days cholecalciferol (vitamin D3) 50 mcg PO DAILY ezetimibe 10 mg PO DAILY lancets (FreeStyle Lancets) Test blood sugar once a day levothyroxine 100 mcg PO DAILY losartan 100 mg PO DAILY metformin ER 500 mg PO BID omega-3 acid ethyl esters 2 caps PO BID 90 days spironolactone 50 mg (2 x 25 mg) PO DAILY 90 days Tobacco use date assessed: 10/07/24 Dental Screening Dental Screen Date: 10/07/24 Did you have a dental visit in the last 12 months?: Yes Did you have a dental problem in the last 6 months where you did not have access to dental care?: No Was dental information given to patient?: Patient has dentist HPI Annual PE HPI Details History of Present Illness The patient is a 54-year-old male presenting with a focus on wellness and ongoing management of several chronic conditions. Specifically, he is managing type 2 diabetes mellitus with a recent fasting glucose measure of 149 mg/dL, indicating the need for close monitoring and potential adjustments in his treatment regimen. His creatinine level has increased to 1.45 mg/dL, which is tracked due to his chronic kidney disease status. Furthermore, the patient has a history of hyperlipidemia, with triglycerides measured at 401 mg/dL, and he remains under lipid management therapy. He requires regular follow-up for his nonalcoholic fatty liver disease, evidenced by liver enzyme elevation. He actively collaborates with a power technician, sheet tailer, and poured wall foreman to manage his health comprehensively. He reports no significant new symptoms and is otherwise stable. Referred to derm in the past, pt reports not hearing anything, resubmitted. Health Maintenance - Discussed plans for PSA testing in a c ouple of months for prostate health screening. - Will measure direct LDL due to hypertr iglyceridemia affecting LDL calculations. - Recommended monitoring of fasting gluc ose and hemoglobin A1c for diabetes management. - Encouraged ongoing collaboration with a poured wall foreman for dietary management in chronic conditions. -colon screen is up to date -psa ordered -eye exam scheduled -refused vaccinations Social History Review of Systems - General: Denies any unintentional weig ht loss. - Cardiovascular: Denies chest pain. - Respiratory: Denies shortness of breat h. - Gastrointestinal: Denies abdominal pradeep n, blood in stool, constipation, or diarrhea. - Genitourinary: urinary frequency repor garth - Neurological: Denies neuropathy. - Psychiatric: Denies suicidal ideation or homicidal ideation. - Endocrine: Denies polyuria or polydips ia. - Musculoskeletal: No specific concerns. - Dermatological: left druze Physical Exam General: Cooperative, healthy appearing, comfortable, no acute distress and well developed. Obesity noted. Orientation: Patient oriented x3 Limitations: No limitations Head: Normal to inspection Ears: Hearing grossly normal bilaterally Nose: Normal external nose present Face and sinus: Normal facial exam Eyes: Appearance normal, both eyes and all related structures Neck: Normal visual inspection and Yes full ROM Respiratory: Normal respiratory effort and able to speak in complete sentences. Clear to auscultation bilaterally Cardiovascular: Regular rate and rhythm. Normal S1 and S2 GI: Normal to inspection. Soft to palpation and nontender Skin: left druze/pre-auricular region with linear raised darker lesion Neuro: Patient oriented x3. Denies any neuropathy. Extremities: Normal to inspection. Feet were intact, bilateral positive sensation, abusive monofilament. Results - Labs: Creatinine 1.45 mg/dL, Fasting G lucose 149 mg/dL, Triglycerides 401 mg/dL, TSH within normal limits. - Tests: CBC normal. Plan For the patient's type 2 diabetes mellitus management, I will closely monitor fasting glucose and potentially adjust treatment as needed. Slightly elevated creatinine calls for careful tracking of renal function in collaboration with the power technician. Hyperlipidemia will be monitored, especially with plans for a direct LDL measurement. For nonalcoholic fatty liver disease, I emphasize surveillance and lifestyle modification. I will schedule a PSA test for future cancer screening, and continue current lipid-lowering therapy, considering the role of the poured wall foreman in managing obesity. Discussion Notes During today's visit, I reviewed the patient's current management of type 2 diabetes mellitus, chronic kidney disease, hyperlipidemia, and nonalcoholic fatty liver disease. We discussed the necessity of ongoing monitoring of fasting glucose and creatinine levels, as well as the management of triglycerides. The patient agreed to obtain laboratory tests for direct LDL measures and PSA screening in the upcoming months. I provided counseling on the continuation of current medications and lifestyle modifications, especially focusing on weight management and dietary adjustments. The patient is already working with a power technician, sheet tailer, and poured wall foreman, contributing to a comprehensive management plan. Follow-up care and further diagnostic evaluations were discussed to ensure continuous monitoring and management of his chronic conditions. NOTE: A1c machine not working in office, will get with next lab dr llamas Patient Instructions - Continue taking all prescribed medicat ions as directed: atorvastatin 80 mg, ezetimibe 10 mg, and omega-3 esters. - Monitor blood glucose levels regularly and report any significant changes. - Engage with your poured wall foreman to discu ss dietary habits and weight management. - Schedule laboratory tests for direct L DL measurement and PSA in the next couple of months. - Contact the office if you experience a ny new symptoms, such as changes in urination, chest pain, or abdominal discomfort. - Maintain regular check-ups with your n ephrologist and sheet tailer. [facility] Medical History (Updated 10/07/24 @ 15:16 by Florentino Lujan, [facility]) Encounter for routine adult physical exam with abnormal findings Diabetes Hypothyroid Elevated cholesterol Fatty liver CKD (chronic kidney disease) Essential hypertension Surgical History History of nasal surgery Family History Father Depression Cancer of prostate Mental health disorder Mother Cancer Leukemia Maternal Grandfather No problems noted. Maternal Grandmother No problems noted. Paternal Grandfather No problems noted. Paternal Grandmother No problems noted. 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 1. Little interest or pleasure in doing things: not at all 2. Feeling down, depressed, or hopeless: not at all 3. Trouble falling or staying asleep, or sleeping too much: not at all 4. Feeling tired or having little energy: not at all 5. Poor appetite or overeating: not at all 6. Feeling bad about yourself - or that you are a failure or have let yourself or your family down: not at all 7. Trouble concentrating on things, such as reading the newspaper or watching television: not at all 8. Moving or speaking so slowly that other people could have noticed. Or the opposite - being so fidgety or restless that you have been moving around a lot more than usual: not at all 9. Thoughts that you would be better off or of hurting yourself in some way: not at all Total score: 0 Depression Screening Interpretation: Negative Depression Screening Done: Yes 49804 - PHQ-9 Billing: Yes Source: Developed by Drs. Timothy Ibarra, Guerda Calderon, Marcos Mcgregor and colleagues, with an educational titi from [employer]. Thrive Questionnaire Date Thrive assessed: 10/07/24 I am a: Patient What is your living situation today?: I have a steady place to live Within the past 12 months, did the food you bought not last and you didn't have the money to get more?: Never true Within the past 12 months, did you worry whether your food would run out before you got money to buy more?: Never true Do you have trouble paying for medicines?: No Do you have trouble getting transportation to medical appointments?: No Do you have trouble paying your heating and electricity bill?: No Do you have trouble taking care of your child, family member or friend?: No Do you have trouble with day-to-day activities such as bathing, preparing meals, shopping, managing finances, etc.?: No Are you currently unemployed and looking for a job?: No Are you interested in more education?: No Please select the resources that you would like help with: Paying for medicine Currently or been in a relationship where the following occur: No concerns reported THRIVE Score: 0 AUDIT C Alcohol Use Questionnaire (AUDIT-C) 1. How often do you have a drink containing alcohol?: Monthly or less 2. How many drinks containing alcohol do you have on a typical day when you are drinking?: 1 or 2 3. How often do you have six or more drinks on one occasion?: Never Total Score: 1 ROYER-7 AMB Questionnaire ROYER-7 Date ROYER - 7 assessed: 10/07/24 Feeling nervous, anxious, or on edge: 0 = Not at all Not being able to stop or control worryin = Not at all Worrying too much about different things: 0 = Not at all Trouble relaxin = Not at all Being so restless that it is hard to sit still: 0 = Not at all Becoming easily annoyed or irritable: 0 = Not at all Feeling afraid as if something awful might happen: 0 = Not at all Total ROYER-7 score (0-4 normal; 5-9 mild; 10-14 moderate; 15-21 severe): 0 Source: Developed by Drs. Timothy Ibarra, Guerda Calderon, Marcos Mcgregor and colleagues, with an educational titi from [employer]. ROYER-7 Assessment Billing ROYER-7 Assessment Tool: ROYER-7 Assessment 35104 Physical exam (Primary Care) Vital Signs: Last Vital Signs Temp 97.9 F 10/07/24 14:26 Pulse 100 10/07/24 14:26 Resp 20 10/07/24 14:26 BP 126/80 10/07/24 14:26 Pulse Ox 95 10/07/24 14:26 Oxygen Delivery Method Room Air 10/07/24 14:26 BMI result Body Mass Index 37.1 Tobacco/Smoking Status: Tobacco use Status Tobacco use date assessed 10/07/24 10/07/24 14:27 Patient Tobacco Use Status Never used Tobacco 10/07/24 14:27 e-Cigarette/Vaping Use Never Used 10/07/24 14:24 PHQ-9: PHQ-9 Score PHQ-9: Total score 0 10/07/24 14:50 Depression Screening Interpretation: Negative Thrive Assessment: Date of Thrive Assessment Date Thrive assessed 10/07/24 10/07/24 14:27 Currently or been in a relationship where the following occur: No concerns reported Coding Level of Care Code Est Pt Level 3 (69265) Est Pt Prev Care 40-64y(27023) Diagnoses Dyslipidemia E78.5 Diabetes E11.9 Family hx of prostate cancer Z80.42 High triglycerides E78.1 Additional Codes ROYER-7 Assessment Billing - ROYER-7 Assessment Tool: ROYER-7 Assessment 95282 ([id number]) PHQ-9 - 99396 - PHQ-9 Billing: Yes ([id number]) Assessment & Plan Assessment & Plan (1) Dyslipidemia: Code(s): E78.5 - Hyperlipidemia, unspecified Category: Medical (2) Diabetes: Code(s): E11.9 - Type 2 diabetes mellitus without complications Category: Medical (3) Family hx of prostate cancer: Code(s): Z80.42 - Family history of malignant neoplasm of prostate Category: Medical (4) High triglycerides: Code(s): E78.1 - Pure hyperglyceridemia Category: Medical Plan . Orders: Orders 2 Comprehensive [place]. Panel Fast Today E11.9 - Type 2 diabetes mellitus without complications, E78.5 - Hyperlipidemia, unspecified, Z00.01 - Encounter for general adult medical examination with abnormal findings Lipid Panel Today E11.9 - Type 2 diabetes mellitus without complications, E78.5 - Hyperlipidemia, unspecified, Z00.01 - Encounter for general adult medical examination with abnormal findings LDL Cholesterol Direct Today E11.9 - Type 2 diabetes mellitus without complications, E78.5 - Hyperlipidemia, unspecified, Z00.01 - Encounter for general adult medical examination with abnormal findings Prostate Specific Antigen Scr Today Z80.42 - Family history of malignant neoplasm of prostate AMB Hemoglobin A1c Today Z13.9 - Encounter for screening, unspecified Hemoglobin A1c Today E11.9 - Type 2 diabetes mellitus without complications Microalbumin, Random (w Creat) Today E11.9 - Type 2 diabetes mellitus without complications
[2024-10-07 14:26] VITALS: BP 126/80; PULSE 100; RESP 20; TEMP 36.6; O2SAT 95; BMI 37.1
== END 2024-10-07 15:25 | disposition home or self-care (01) ==
LOC: HO.HMCC 14:16
PROVIDERS: PCP Nurse Practitioner Family; Visit Provider Nurse Practitioner Family
DX: Z00.00 Encounter for general adult medical examination without abnormal findings (principal); E11.69 Type 2 diabetes mellitus with other specified complication; E78.5 Hyperlipidemia, unspecified; Z80.42 Family history of malignant neoplasm of prostate; E78.1 Pure hyperglyceridemia

== ENCOUNTER 2024-11-18 13:47 | Outpatient (AMB) | payer OTHER, SELFPAY ==
--- NOTE | 2024-11-18 14:10 | HO.NEPHOV_ITS ---
Vital Signs 11/18/24 14:13 Height 5 ft 9 in Weight 252 lb BMI 37.2 BP 115/70 Blood Pressure Location Lt brachial Position Sitting Pulse 89 Pulse Source Pulse Oximeter Pulse Oximetry (%) 93 Oxygen Delivery Method Room Air Intake Visit Reasons: CKD-Conf Vp Software Engineering Required: No Accompanied by: Self / Same As Patient Allergies No Known Allergies Allergy (Verified 11/18/24 14:15) Do you need a note to return to daycare/school/sports/work: No HPI Comments Details: Francisco was seen in follow-up of his chronic kidney disease and hypertension. He is known to have polycystic kidney disease. He does not have any flank pain, hematuria, renal stones, urinary infections, hematuria, pedal edema, nausea, vomiting, diarrhea, chest pain, shortness of breath, proximal nocturnal dyspnea or orthopnea. He is compliant with medications. He does not take any nonsteroidal anti-inflammatories. All the systems were reviewed and were negative. [facility] Medical History Encounter for routine adult physical exam with abnormal findings Diabetes Hypothyroid Elevated cholesterol Fatty liver CKD (chronic kidney disease) Essential hypertension Surgical History History of nasal surgery Family History Father Depression Cancer of prostate Mental health disorder Mother Cancer Leukemia Maternal Grandfather No problems noted. Maternal Grandmother No problems noted. Paternal Grandfather No problems noted. Paternal Grandmother No problems noted. 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 Current occupational exposures/hazards: Yes Cognitive needs: No Hearing needs: No Vision needs: No Review of Systems Const All systems reviewed & are unremarkable except as noted in HPI and below Physical Exam Vital Signs: Last Vital Signs Pulse 89 11/18/24 14:13 BP 115/70 11/18/24 14:13 Pulse Ox 93 11/18/24 14:13 Oxygen Delivery Method Room Air 11/18/24 14:13 BMI result Body Mass Index 37.2 Const General: comfortable and no acute distress Orientation/consciousness: patient oriented x3 HEENT Head: Yes normocephalic Mouth: Normal oral and palatal mucosa present Eyes EOM: EOMs intact bilaterally Neck Neck: Yes supple Resp Auscultation: clear to auscultation bilaterally Cardio Jugular venous distension: no JVD Rate: regular rate GI Palpation (GI): Soft to palpation Auscultation: normal bowel sounds General: Yes no CVA tenderness Back/Spine/Pelvis Back: no CVA tenderness Skin General skin exam: no rashes or lesions noted Neuro General: patient oriented x3 and moves all extremities Extrem General: Yes no pedal edema Results Reviewed Nephrology Results: Hgb, (14.0-18.0) 14.6 g/dl 10/07/24 WBC, (4.8-10.8) 7.1 X10*3/uL 10/07/24 Plt Count, (160-400) 211 X10*3/uL 10/07/24 Sodium, (135-145) 138 mmol/L 10/07/24 Potassium, (3.3-5.1) 4.7 mmol/L 10/07/24 Chloride, (96-108) 106 mmol/L 10/07/24 Carbon Dioxide, (22-29) 23 mmol/L 10/07/24 BUN, (9-16) 24 mg/dL H 10/07/24 Creatinine, (0.5-1.4) 1.45 mg/dL H 10/07/24 Calcium, (8.4-10.2) 9.1 mg/dL Δ 10/07/24 Urine Protein, (Neg-Trace) Negative mg/dL 10/07/24 Assessment & Plan Assessment & Plan (1) Hypertension: Code(s): I10 - Essential (primary) hypertension Category: Medical Qualifiers: Hypertension type: primary hypertension Qualified Code(s): I10 - Essential (primary) hypertension (2) CKD (chronic kidney disease) stage 3, GFR 30-59 ml/min: Code(s): N18.30 - Chronic kidney disease, stage 3 unspecified Category: Medical Qualifiers: Chronic kidney disease stage 3 subtype: stage 3a (GFR 45-59) Qualified Code(s): N18.31 - Chronic kidney disease, stage 3a Plan Francisco has polycystic kidney disease. His blood pressure is currently at goal. He does not take any nonsteroidal anti-inflammatories. He tries to maintain good hydration. He has not had any symptoms suggestive of any cyst rupture, cyst infection or renal stones. He needs to lose weight. He should remain well hydrated and minimize nonsteroidal anti-inflammatories. He may potentially be a candidate for tolvaptan in the future. He will benefit from Farxiga/Estherdiujan. He has not had any gene testing for PKD yet. All questions answered. Follow-up given Orders: Orders Protein Creatinine Ratio, Ur 4 Months I10 - Essential (primary) hypertension Electrolytes 4 Months I10 - Essential (primary) hypertension, N18.31 - Chronic kidney disease, stage 3a Blood Urea Nitrogen 4 Months I10 - Essential (primary) hypertension, N18.31 - Chronic kidney disease, stage 3a Creatinine 4 Months I10 - Essential (primary) hypertension, N18.31 - Chronic kidney disease, stage 3a Coding Level of Care Code Est Pt Level 4 (40772) Diagnoses Primary hypertension I10 Hypertension type: primary hypertension Stage 3a chronic kidney disease N18.31 Chronic kidney disease stage 3 subtype: stage 3a (GFR 45-59)
[2024-11-18 14:13] VITALS: BP 115/70; PULSE 89; O2SAT 93; BMI 37.2
--- OUTSIDE RECORDS SUMMARY | 2024-11-18 16:21 | XMS_ITS | Encounter Summary ---
Author Organization [facility] Address [address] [facility] [address] [place] [address] Phone Care Team Providers Care Small Business Director Name Role Phone Florentino Lujan NP Primary Care Provider [phone] Reason for Visit * Reason Comments Med Refill Encounter Details Date Type Department Care Team (Late st Contact Info) Description 05/07/2024 Refill [facility] [address] [facility] [address] [place] [phone] Uziel Hartley MD [address] [facility] [address] [place] [phone] Social History Tobacco Use Types Packs/Day Years [...] on filedocumented in this encounter Care Teams Small Business Director Relationship Specialty Start Date End Date Florentino Lujan NP [address] [place] [address] PCP - General Nurse Practitioner 01/03/21 documented as of this encounter
== END 2024-11-18 14:38 | disposition home or self-care (01) ==
PROVIDERS: PCP Nurse Practitioner Family; Visit Provider Internal Medicine Nephrology
DX: I10 Essential (primary) hypertension (principal); N18.31 Chronic kidney disease, stage 3a
CPT/HCPCS: 99214

== ENCOUNTER 2025-01-21 07:36 | Outpatient (REF) | payer OTHER, SELFPAY ==
--- OUTSIDE RECORDS SUMMARY | 2025-01-21 07:39 | XMS_ITS | Encounter Summary ---
Author Organization [facility] Address [address] [place] [address] Phone Care Team Providers Care Paper Testing Supervisor Name Role Phone Florentino Lujan NP Primary Care Provider [phone] Reason for Visit * Reason Onset Date Comments RX refill Carvedilol 04/16/2022 Encounter Details Date Type Department Care Team (Late st Contact Info) Description 04/16/2022 Telephone [facility] [address] [place] [phone] Nel Carranza Social History Tobacco Use Types Packs/Day Years [...] on filedocumented in this encounter Care Teams Paper Testing Supervisor Relationship Specialty Start Date End Date Florentino Lujan NP [address] [place] [address] PCP - General Nurse Practitioner 01/03/21 documented as of this encounter
--- OUTSIDE RECORDS SUMMARY | 2025-01-21 07:39 | XMS_ITS | Encounter Summary ---
Author Organization [facility] Address [address] [facility] [address] [place] [address] Phone Care Team Providers Care Recovery Room Nurse Name Role Phone Florentino Lujan NP Primary Care Provider [phone] Reason for Visit * Reason Comments Med Refill Encounter Details Date Type Department Care Team (Late st Contact Info) Description 05/07/2024 Refill [facility] [address] [facility] [address] [place] [phone] Uziel Hartley MD [address] [facility] [address] [place] [phone] Social History Tobacco Use Types Packs/Day Years [...] on filedocumented in this encounter Care Teams Recovery Room Nurse Relationship Specialty Start Date End Date Florentino Lujan NP [address] [place] [address] PCP - General Nurse Practitioner 01/03/21 documented as of this encounter
--- OUTSIDE RECORDS SUMMARY | 2025-01-21 07:39 | XMS_ITS | Clinical Summary ---
Author Organization [facility] Address [address] [address] Phone Care Team Providers Care Booth Usher Name Role Phone Florentino Lujan NP Primary Care Provider [phone] Allergies No known active allergies Medications atorvastatin [...] Cancer Screening: Sigmoidoscopy 09/05/2020 Influenza Vaccine (#1) [address] [facility] [place] [address] [facility] Care Teams Booth Usher Relationship Specialty Start Date End Date Florentino Lujan NP [address] [place] [address] PCP - General Nurse Practitioner 01/03/21
[2025-01-21 10:48] LABS: Alanine Aminotransferase 52 U/L (0-40); Albumin Level 4.5 g/dL (3.5-5.0); Alkaline Phosphatase 44 U/L (39-117); Anion Gap 9 (12-20); Aspartate Amino Transferase 32 U/L (5-37); Blood Urea Nitrogen 19 mg/dL (9-16); Calcium 8.6 mg/dL (8.4-10.2); Carbon Dioxide 26 mmol/L (22-29); Chloride 105 mmol/L (96-108); Cholesterol 142 mg/dL (<200); Estimated Glomerular Filt Rate 51; HDL Cholesterol 29 mg/dL (>40); Potassium 4.0 mmol/L (3.3-5.1); Sodium 136 mmol/L (135-145); Total Protein 6.9 g/dL (6.5-8.0); Triglycerides 517 mg/dL (<150)
[2025-01-21 10:50] LABS: Hemoglobin A1C 194.9588 umol/L; Total Hemoglobin (HGBA1C) 3728.0659 umol/L
[2025-01-21 11:04] LABS: Microalbum/Creatinine Ratio Ur 23.7 ug/mg cr (<30)
== END 2025-01-21 07:37 | disposition home or self-care (01) ==
LOC: HO.HMGCLDS 07:36
PROVIDERS: PCP Nurse Practitioner Family; Visit Provider Nurse Practitioner Family
DX: Z00.01 Encounter for general adult medical examination with abnormal findings (principal); E78.5 Hyperlipidemia, unspecified; E11.9 Type 2 diabetes mellitus without complications; Z80.42 Family history of malignant neoplasm of prostate; Z12.5 Encounter for screening for malignant neoplasm of prostate
CPT/HCPCS: 36415; 80053; 80061; 82043; 82570; 83036; 83721; 84153

== ENCOUNTER 2025-01-28 10:57 | Outpatient (AMB) | payer OTHER, SELFPAY ==
--- NOTE | 2025-01-28 11:07 | A.OFFVIS_ITS ---
VS Expanded 02/02/25 21:17 Height 5 ft 9 in Weight 256 lb BMI 37.8 Intake Visit Reasons: T2DM Allergies No Known Allergies Allergy (Verified 11/18/24 14:15) Nutrition Presentation Details: Pt presents for MNT f/u for T2DM, Pt is concerned regarding elevated Tg (which are gradually decreasing) Pt does not monitor bg , most recent A1c 6.9% on 01/18 Reports having stopped physical activity for a while and has restarted [employer] participation for the last 3 weeks. Food frequency fast food: once/d (including high fat food choices) beverages: water mostly, 1reg soda 3x/wk , milk fruits: 1/d fish : not including dairy 3+ /d veg: not including whole grains foods 3x/wk BS Monitoring Most Recent Diabetes Results: Microalb/Creat Ratio, (<30) 23.7 ug/mg cr 01/21/25 Cholesterol, (<200) 142 mg/dL 01/21/25 HDL Cholesterol, (>40) 29 mg/dL L 01/21/25 Triglycerides, (<150) 517 mg/dL H 01/21/25 Creatinine, (0.5-1.4) 1.45 mg/dL H 01/21/25 BUN, (9-16) 19 mg/dL H 01/21/25 Sodium, (135-145) 136 mmol/L 01/21/25 Potassium, (3.3-5.1) 4.0 mmol/L 01/21/25 Chloride, (96-108) 105 mmol/L 01/21/25 Carbon Dioxide, (22-29) 26 mmol/L 01/21/25 Calcium, (8.4-10.2) 8.6 mg/dL 01/21/25 AST, (5-37) 32 U/L 01/21/25 ALT, (0-40) 52 U/L H 01/21/25 Total Protein, (6.5-8.0) 6.9 g/dL 01/21/25 Albumin, (3.5-5.0) 4.5 g/dL 01/21/25 [facility] Medical History Encounter for routine adult physical exam with abnormal findings Diabetes Hypothyroid Elevated cholesterol Fatty liver CKD (chronic kidney disease) Essential hypertension Surgical History History of nasal surgery Family History Father Depression Cancer of prostate Mental health disorder Mother Cancer Leukemia Maternal Grandfather No problems noted. Maternal Grandmother No problems noted. Paternal Grandfather No problems noted. Paternal Grandmother No problems noted. 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 Current occupational exposures/hazards: Yes Cognitive needs: No Hearing needs: No Vision needs: No Assessment & Plan Assessment & Plan (1) Diabetes: Code(s): E11.9 - Type 2 diabetes mellitus without complications Category: Medical Plan: Wt: 114 Kg (03/19 ), 113.5 (04/19), 05/2024, 112kg (08/18), 113 kg(02/18) Est kcal needs as per MSJ: 2700 (40% carb, 30% protein/fat) Est fluid needs as per 25-30 ml/d: 3400 Est prot per day as per 1 g/kg bw: 114 Recommend fiber intake : 8-10 g per day and gradually increase to 25-28 g per day for women and 35-38 g for men or as tolerated Recommend sodium intake per day : less than 2300 mg Educated patient on: ( R = reviewed V = verbalizes understanding N/R = needs review N/A = not applicable * Food sources of carbohydrate, adequate serving sizes and its role in various health conditions: R * Differences between complex carbohydrates a simple carbohydrates, role of fiber in diet: R * Lean protein sources of foods: R * Differences between types of fats and role in diet (mono on saturated fat fatty acids, saturated fatty acids, trans fats): R * Food sources of sodium in salt and healthy modifications for heart health in kidney health: R * Vitamins and minerals: R V N/R * Healthy plate method concept: R * Physical activity: Benefits a precaution: R V N/R * Hypoglycemia protocol (rule of 15): R V N/R * Dietary prevention of Hyperglycemia: R Medications: Discontinued fenofibric acid Discontinued Reason: Doctor's Order 105 mg PO DAILY 90 tabs 0RF Patient Instructions: Work on reducing fried foods, foods with batter - choose low fat food options for lunch - see list provided and discussed Have one meal replacement 4 times/week Monitor blood sugar, 2 hours after a meal (goal , less than 180 mg/dL continue physical activity and keep hydrated by choosing water, low sugar beverages Coding Level of Care Code Nutr Indiv Subseq (89629) Diagnoses Diabetes E11.9 Time Spent (min) 30
--- OUTSIDE RECORDS SUMMARY | 2025-01-28 12:33 | XMS_ITS | Encounter Summary ---
Author Organization [facility] Address [address] [facility] [address] [place] [address] Phone Care Team Providers Care Process Design Engineer Name Role Phone Florentino Lujan NP Primary Care Provider [phone] Reason for Visit * Reason Comments Med Refill Encounter Details Date Type Department Care Team (Late st Contact Info) Description 05/07/2024 Refill [facility] [address] [place] [phone] Uziel Hartley MD [address] [facility] [address] [place] [phone] Social History Tobacco Use Types Packs/Day Years [...] on filedocumented in this encounter Care Teams Process Design Engineer Relationship Specialty Start Date End Date Florentino Lujan NP [address] [place] [address] PCP - General Nurse Practitioner 01/03/21 documented as of this encounter
--- OUTSIDE RECORDS SUMMARY | 2025-01-28 12:33 | XMS_ITS | Encounter Summary ---
Author Organization [facility] Address [address] [place] [address] Phone Care Team Providers Care Glazier Helper Name Role Phone Florentino Lujan NP Primary Care Provider [phone] Reason for Visit * Reason Onset Date Comments RX refill Carvedilol 04/16/2022 Encounter Details Date Type Department Care Team (Late st Contact Info) Description 04/16/2022 Telephone [facility] [address] [place] [phone] Nel Carranza Social History Tobacco Use Types [...] on filedocumented in this encounter Care Teams Glazier Helper Relationship Specialty Start Date End Date Florentino Lujan NP [address] [place] [address] PCP - General Nurse Practitioner 01/03/21 documented as of this encounter
--- OUTSIDE RECORDS SUMMARY | 2025-01-28 12:33 | XMS_ITS | Clinical Summary ---
Author Organization [facility] Address [address] [address] Phone Care Team Providers Care Residential Property Manager Name Role Phone Florentino Lujan NP Primary Care Provider [phone] Allergies No known active allergies Medications atorvastatin [...] Sigmoidoscopy 09/05/2020 Influenza Vaccine (#1) [address] [facility] [place] [address] [facility] Care Teams Residential Property Manager Relationship Specialty Start Date End Date Florentino Lujan NP [address] [place] [address] PCP - General Nurse Practitioner 01/03/21
[2025-02-02 21:17] VITALS: BMI 37.8
== END 2025-01-28 12:46 | disposition home or self-care (01) ==
LOC: HO.ENCR 10:58
PROVIDERS: PCP Nurse Practitioner Family; Visit Provider Dietitian, Registered
DX: E11.9 Type 2 diabetes mellitus without complications (principal)

== ENCOUNTER → 2025-01-28 10:57 | Outpatient (BNVA) | payer OTHER, SELFPAY | PROVIDERS: PCP Nurse Practitioner Family; Visit Provider Dietitian, Registered | DX: E11.9 Type 2 diabetes mellitus without complications (principal); N18.9 Chronic kidney disease, unspecified; E78.00 Pure hypercholesterolemia, unspecified; E66.01 Morbid (severe) obesity due to excess calories; Z68.37 Body mass index [BMI] 37.0-37.9, adult; Z71.3 Dietary counseling and surveillance | CPT/HCPCS: 97803 ==

== ENCOUNTER 2025-02-11 12:39 | Outpatient (AMB) | payer OTHER, SELFPAY ==
--- NOTE | 2025-02-11 13:01 | MHC.OFFVIS ---
Vital Signs 02/11/25 13:02 Height 5 ft 9 in Weight 247 lb 12.793 oz BMI 36.6 BP 120/62 Blood Pressure Location Lt brachial Position Sitting Pulse 79 Pulse Source Pulse Oximeter Intake Visit Reasons: 6m follow up Mail List Librarian Required: No Accompanied by: Self / Same As Patient Allergies No Known Allergies Allergy (Verified 02/11/25 13:04) Medication List - Last Reconciled 02/11/25 by Harshil Pelaez NP atorvastatin 80 mg PO DAILY blood sugar diagnostic (FreeStyle Lite Strips) Test blood sugar once a day blood-glucose meter (FreeStyle Lite Meter kit) As directed carvedilol 12.5 mg PO BID 30 days ezetimibe 10 mg PO DAILY fenofibrate 160 mg PO DAILY lancets (FreeStyle Lancets) Test blood sugar once a day levothyroxine 100 mcg PO DAILY losartan 100 mg PO DAILY metformin ER 500 mg PO BID spironolactone 50 mg (2 x 25 mg) PO DAILY 90 days HPI Comments Details: This is a 54-year-old male patient coming in for a follow-up visit. Patient with a history of hypertension, dyslipidemia, diabetes, mild aortic aneurysm, and obesity. Patient previously had reported shortness of breath with exertion for which patient underwent a repeat echo. Today, patient is reporting feeling well overall without any cardiac symptoms of exertional chest pain, shortness of breath, palpitations, dizziness, orthopnea, PND, leg edema, presyncope, or syncope. Patient is reporting compliance with all his medications. Patient states that he has been working on his weight and is staying active. Patient notes that he has been having a hard time with his A1c under control but has been working on his diet. [facility] Medical History (Updated 02/11/25 @ 13:25 by Harshil Pelaez NP) Preoperative cardiovascular examination Encounter for routine adult physical exam with abnormal findings Diabetes Hypothyroid Elevated cholesterol Fatty liver CKD (chronic kidney disease) Essential hypertension Surgical History History of nasal surgery Family History Father Depression Cancer of prostate Mental health disorder Mother Cancer Leukemia Maternal Grandfather No problems noted. Maternal Grandmother No problems noted. Paternal Grandfather No problems noted. Paternal Grandmother No problems noted. 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: [employer] Current occupational exposures/hazards: Yes Cognitive needs: No Hearing needs: No Vision needs: No Review of Systems Const Denies daytime sleepiness, Denies difficulty sleeping, Denies snoring, Denies stops breathing during sleep and Denies weakness Card Denies chest pain, Denies rapid heart rate, Denies irregular heart rhythm, Denies claudication, Denies leg edema, Denies lightheadedness, Denies palpitations, Denies dyspnea, Denies dyspnea on exertion, Denies orthopnea, Denies paroxysmal nocturnal dyspnea and Denies slow heart rate Resp Denies cough, Denies dyspnea, Denies dyspnea on exertion and Denies snoring GI Reports no additional complaints, Denies hematochezia, Denies change in stool character and Denies dyspepsia Musc Denies abnormal gait, Denies muscle weakness and Denies numbness Neuro Denies abnormal gait, Denies numbness and Denies weakness Endo Denies palpitations Physical Exam Vital Signs: Last Vital Signs Pulse 79 02/11/25 13:02 BP 120/62 02/11/25 13:02 BMI result Body Mass Index 36.6 Const General: cooperative, healthy appearing, comfortable and no acute distress Orientation/consciousness: patient oriented x3 HEENT Head: Yes normal to inspection Neck Neck: Yes normal visual inspection, Yes trachea midline and Yes supple Chest Chest palpation & inspection: normal inspection of the chest Resp Effort & Inspection: normal respiratory effort Auscultation: clear to auscultation bilaterally, no crackles, no rales, no rhonchi and no wheezes Cardio Jugular venous distension: no JVD Palpation: normal PMI Rate: regular rate Rhythm: regular rhythm Heart sounds: S1 normal heart sound present, S2 normal heart sound present, no click, no gallops, no murmurs and no rubs Peripheral pulses: Peripheral pulses 2+ throughout GI Inspection: Yes normal to inspection Palpation (GI): Soft to palpation Auscultation: normal bowel sounds Skin General skin exam: no rashes or lesions noted Neuro General: patient oriented x3 Extrem General: Yes normal to inspection, No no pedal edema and No calf tenderness Psych Appearance: grossly normal Mental Status: mental status grossly normal Speech and movement: Normal speech and movement present Assessment & Plan Assessment & Plan (1) Enlarged thoracic aorta: Code(s): I77.89 - Other specified disorders of arteries and arterioles Category: Medical Plan: 09/03/2024-echo study showed a normal LV systolic function with an ejection fraction between 55-60% with mild LVH and grade 1 diastolic dysfunction, and mildly dilated ascending aorta at 4.1 cm. Clinically stable and euvolemic. Continue aggressive management of blood pressures. Patient states blood pressures has been stable at home and therefore does not monitor regularly. Ideally, goal less than 130/80. Blood pressure today is well-controlled. Continue current regimen. Advised on management of his other vascular risk factors. We will repeat an echo in 1 year to look at the aorta. Patient understanding of the back. (2) Second degree heart block: Code(s): I44.1 - Atrioventricular block, second degree Category: Medical Plan: 10/06/2021- Holter monitor showed sinus rhythm with couple episodes of nocturnal Mobitz type 1 second-degree AV block, rare ectopy. EKG at his last visit showed normal sinus rhythm with PACs and incomplete right bundle branch block. (3) Essential hypertension: Code(s): I10 - Essential (primary) hypertension Category: Medical Plan: As above. (4) Diabetes: Code(s): E11.9 - Type 2 diabetes mellitus without complications Category: Medical Plan: Most recent A1c at 6.9%. Continue aggressive diabetes management. Followed by PCP. (5) Dyslipidemia: Code(s): E78.5 - Hyperlipidemia, unspecified Category: Medical Plan: Most recent LDL at 48. Continue diet and current med regimen with the LDL goal less than 70. (6) Obesity: Code(s): E66.9 - Obesity, unspecified Category: Medical Plan: Advised to continue with heart healthy diet, regular exercise, losing weight, med compliance and aggressive management of his vascular risk factors. Patient will follow up in 1 year, sooner if needed. In the interim, the patient will call us with any concerns or change in symptoms. This note was generated using voice recognition software. While every effort has been made to ensure accuracy and proper wool shearing supervisor, there may be occasional errors that could affect the content or meaning of the described symptoms. Orders: Orders CA echo transthoracic complete 1 Year I71.9 - Aortic aneurysm of unspecified site, without rupture Coding Level of Care Code Est Pt Level 4 (33642) Complex EM visit Add On G2211 Diagnoses Enlarged thoracic aorta I77.89 Second degree heart block I44.1 Essential hypertension I10 Diabetes E11.9 Dyslipidemia E78.5 Obesity E66.9 Time Spent (min) 31 Comment Time spent in reviewing the chart, test results, assessment, counseling and documentation.
[2025-02-11 13:02] VITALS: BP 120/62; PULSE 79; BMI 36.6
--- OUTSIDE RECORDS SUMMARY | 2025-02-11 14:43 | XMS_ITS | Clinical Summary ---
Author Organization [facility] Address [address] [address] Phone Care Team Providers Care Rhinestone Setter Name Role Phone Florentino Lujan NP Primary Care Provider [phone] Allergies No known active allergies Medications atorvastatin [...] Sigmoidoscopy 09/05/2020 Influenza Vaccine (#1) [address] [facility] [place] [address] [facility] Care Teams Rhinestone Setter Relationship Specialty Start Date End Date Florentino Lujan NP [address] [place] [address] PCP - General Nurse Practitioner 01/03/21
--- OUTSIDE RECORDS SUMMARY | 2025-02-11 14:43 | XMS_ITS | Encounter Summary ---
Author Organization [facility] Address [address] [facility] [address] [address] [place] [address] Phone Care Team Providers Care Open Hearth Furnace Laborer Name Role Phone Florentino Lujan NP Primary Care Provider [phone] Reason for Visit * Reason Onset Date Comments RX refill Carvedilol 04/16/2022 Encounter Details Date Type Department Care Team (Late st Contact Info) Description 04/16/2022 Telephone [facility] [address] [facility] [address] [place] [phone] Nel Carranza Social History Tobacco Use Types [...] on filedocumented in this encounter Care Teams Open Hearth Furnace Laborer Relationship Specialty Start Date End Date Florentino Lujan NP [address] [place] [address] PCP - General Nurse Practitioner 01/03/21 documented as of this encounter
--- OUTSIDE RECORDS SUMMARY | 2025-02-11 14:43 | XMS_ITS | Encounter Summary ---
Author Organization [facility] Address [address] [facility] [address] [place] [address] Phone Care Team Providers Care Software Quality Tester Name Role Phone Florentino Lujan NP Primary Care Provider [phone] Reason for Visit * Reason Comments Med Refill Encounter Details Date Type Department Care Team (Late st Contact Info) Description 05/07/2024 Refill [facility] [address] [place] [phone] Uziel Hartley MD [address] [facility] [address] [place] [phone] Social History Tobacco Use Types Packs/Day Years [...] on filedocumented in this encounter Care Teams Software Quality Tester Relationship Specialty Start Date End Date Florentino Lujan NP [address] [place] [address] PCP - General Nurse Practitioner 01/03/21 documented as of this encounter
== END 2025-02-11 13:24 | disposition home or self-care (01) ==
LOC: HO.HCS 12:39
PROVIDERS: PCP Nurse Practitioner Family
DX: I77.89 Other specified disorders of arteries and arterioles (principal); I44.1 Atrioventricular block, second degree; I10 Essential (primary) hypertension; E11.9 Type 2 diabetes mellitus without complications; E78.5 Hyperlipidemia, unspecified; E66.9 Obesity, unspecified
CPT/HCPCS: 99214; G2211

== ENCOUNTER 2025-03-18 13:18 | Outpatient (REF) | payer OTHER, SELFPAY ==
--- OUTSIDE RECORDS SUMMARY | 2025-03-18 16:48 | XMS_ITS | Encounter Summary ---
Author Organization [facility] Address [address] [facility] [address] [place] [address] Phone Care Team Providers Care Director Of Audiology Name Role Phone Florentino Lujan NP Primary Care Provider Reason for Visit * Reason Comments Med Refill Encounter Details Date Type Department Care Team (Late st Contact Info) Description 05/07/2024 Refill [facility] [address] [facility] [address] [place] [phone] Uziel Hartley MD [address] [facility] [address] [place] [phone] Social History Tobacco Use Types Packs/Day Years [...] on filedocumented in this encounter Care Teams Director Of Audiology Relationship Specialty Start Date End Date Florentino Lujan NP [address] [place] [address] PCP - General Nurse Practitioner 01/03/21 documented as of this encounter
--- OUTSIDE RECORDS SUMMARY | 2025-03-18 16:48 | XMS_ITS | Clinical Summary ---
Author Organization [facility] Address [address] [address] Phone Care Team Providers Care Retail Operations Specialist Name Role Phone Florentino Lujan NP Primary Care Provider [phone] Allergies No known active allergies Medications atorvastatin [...] Sigmoidoscopy 09/05/2020 Influenza Vaccine (#1) [address] [facility] [place] [address] [facility] Care Teams Retail Operations Specialist Relationship Specialty Start Date End Date Florentino Lujan NP [address] [place] [address] PCP - General Nurse Practitioner 01/03/21
--- OUTSIDE RECORDS SUMMARY | 2025-03-18 16:48 | XMS_ITS | Encounter Summary ---
Author Organization [facility] Address [address] [place] [address] Phone Care Team Providers Care Rn Oncology Clinical Name Role Phone Florentino Lujan NP Primary Care Provider [phone] Reason for Visit * Reason Onset Date Comments RX refill Carvedilol 04/16/2022 Encounter Details Date Type Department Care Team (Late st Contact Info) Description 04/16/2022 Telephone [facility] [address] [place] [phone] Nel Carranza Social History Tobacco Use Types [...] on filedocumented in this encounter Care Teams Rn Oncology Clinical Relationship Specialty Start Date End Date Florentino Lujan NP [address] [place] [address] PCP - General Nurse Practitioner 01/03/21 documented as of this encounter
[2025-03-18 16:53] LABS: Anion Gap 12 (12-20); Blood Urea Nitrogen 22 mg/dL (9-16); Carbon Dioxide 25 mmol/L (22-29); Chloride 107 mmol/L (96-108); Estimated Glomerular Filt Rate 42; Potassium 4.1 mmol/L (3.3-5.1); Sodium 140 mmol/L (135-145)
[2025-03-18 16:58] LABS: Total Protein Urine Random < 7 mg/dL (<12)
== END 2025-03-18 13:19 | disposition home or self-care (01) ==
LOC: HO.HMGCLDS 13:18
PROVIDERS: PCP Nurse Practitioner Family; Visit Provider Internal Medicine Nephrology
DX: I12.9 Hypertensive chronic kidney disease with stage 1 through stage 4 chronic kidney disease, or unspecified chronic kidney disease (principal); N18.31 Chronic kidney disease, stage 3a
CPT/HCPCS: 36415; 80051; 82565; 82570; 84156; 84520

== ENCOUNTER 2025-03-24 10:52 | Outpatient (AMB) | payer OTHER, SELFPAY ==
--- NOTE | 2025-03-24 10:54 | HO.NEPHOV ---
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 He is known to have polycystic kidney disease. He does not have any flank pain, hematuria, renal stones, urinary infections, hematuria, pedal edema, nausea, vomiting, diarrhea, chest pain, shortness of breath, proximal nocturnal dyspnea or orthopnea. He is compliant with medications. He does not take any nonsteroidal anti-inflammatories. All the systems were reviewed and were negative. [facility] Medical History (Updated 02/11/25 @ 13:25 by Harshil Pelaez NP) Preoperative cardiovascular examination Encounter for routine adult physical exam with abnormal findings Diabetes Hypothyroid Elevated cholesterol Fatty liver CKD (chronic kidney disease) Essential hypertension Surgical History History of nasal surgery Family History Father Depression Cancer of prostate Mental health disorder Mother Cancer Leukemia Maternal Grandfather No problems noted. Maternal Grandmother No problems noted. Paternal Grandfather No problems noted. Paternal Grandmother No problems noted. 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 Current occupational exposures/hazards: Yes Cognitive needs: No Hearing needs: No Vision needs: No Review of Systems Const All systems reviewed & are unremarkable except as noted in HPI and below Physical Exam Vital Signs: Last Vital Signs Pulse 86 03/24/25 10:57 BP 110/70 03/24/25 10:57 Pulse Ox 96 03/24/25 10:57 Oxygen Delivery Method Room Air 03/24/25 10:57 BMI result Body Mass Index 36.8 Const General: comfortable and no acute distress Orientation/consciousness: patient oriented x3 HEENT Head: Yes normocephalic Mouth: Normal oral and palatal mucosa present Eyes EOM: EOMs intact bilaterally Neck Neck: Yes supple Resp Auscultation: clear to auscultation bilaterally Cardio Jugular venous distension: no JVD Rate: regular rate GI Palpation (GI): Soft to palpation Auscultation: normal bowel sounds General: Yes no CVA tenderness Back/Spine/Pelvis Back: no CVA tenderness Skin General skin exam: no rashes or lesions noted Neuro General: patient oriented x3 and moves all extremities Extrem General: Yes no pedal edema Results Reviewed Nephrology Results: Hgb, (14.0-18.0) 14.6 g/dl 10/07/24 WBC, (4.8-10.8) 7.1 X10*3/uL 10/07/24 Plt Count, (160-400) 211 X10*3/uL 10/07/24 Sodium, (135-145) 140 mmol/L 03/18/25 Potassium, (3.3-5.1) 4.1 mmol/L 03/18/25 Chloride, (96-108) 107 mmol/L 03/18/25 Carbon Dioxide, (22-29) 25 mmol/L 03/18/25 BUN, (9-16) 22 mg/dL H 03/18/25 Creatinine, (0.5-1.4) 1.72 mg/dL H 03/18/25 Calcium, (8.4-10.2) 8.6 mg/dL 01/21/25 Urine Protein, (Neg-Trace) Negative mg/dL 10/07/24 Urine Creatinine 101.31 mg/dL 03/18/25 Protein/Creatinin Ratio TNP 03/18/25 Assessment & Plan Assessment & Plan (1) Hypertension: Code(s): I10 - Essential (primary) hypertension Category: Medical Qualifiers: Hypertension type: primary hypertension Qualified Code(s): I10 - Essential (primary) hypertension (2) CKD (chronic kidney disease) stage 3, GFR 30-59 ml/min: Code(s): N18.30 - Chronic kidney disease, stage 3 unspecified Category: Medical Qualifiers: Chronic kidney disease stage 3 subtype: stage 3a (GFR 45-59) Qualified Code(s): N18.31 - Chronic kidney disease, stage 3a Plan Francisco has polycystic kidney disease. His blood pressure is currently at goal. He does not take any nonsteroidal anti-inflammatories. He tries to maintain good hydration. He has not had any symptoms suggestive of any cyst rupture, cyst infection or renal stones. He needs to lose weight. He should remain well hydrated and minimize nonsteroidal anti-inflammatories. He may potentially be a candidate for tolvaptan in the future. He will benefit from Farxiga/Jardiance. I shall back off on ARB if his serum creatinine does not settle to baseline. He has not had any gene testing for PKD yet. All questions answered. Follow-up given Orders: Orders Electrolytes 7 Weeks I10 - Essential (primary) hypertension, N18.31 - Chronic kidney disease, stage 3a Creatinine 7 Weeks I10 - Essential (primary) hypertension, N18.31 - Chronic kidney disease, stage 3a Blood Urea Nitrogen 7 Weeks I10 - Essential (primary) hypertension, N18.31 - Chronic kidney disease, stage 3a Coding Level of Care Code Est Pt Level 4 (43184) Diagnoses Primary hypertension I10 Hypertension type: primary hypertension Stage 3a chronic kidney disease N18.31 Chronic kidney disease stage 3 subtype: stage 3a (GFR 45-59)
[2025-03-24 10:57] VITALS: BP 110/70; PULSE 86; O2SAT 96; BMI 36.8
--- OUTSIDE RECORDS SUMMARY | 2025-03-24 13:44 | XMS_ITS | Encounter Summary ---
Author Organization [facility] Address [address] [place] [address] Phone Care Team Providers Care Oxygen Equipment Preparer Name Role Phone Florentino Lujan NP Primary Care Provider [phone] Reason for Visit * Reason Onset Date Comments RX refill Carvedilol 04/16/2022 Encounter Details Date Type Department Care Team (Late st Contact Info) Description 04/16/2022 Telephone [facility] [address] [place] [phone] Nel Carranza Social History Tobacco Use Types [...] on filedocumented in this encounter Care Teams Oxygen Equipment Preparer Relationship Specialty Start Date End Date Florentino Lujan NP [address] [place] [address] PCP - General Nurse Practitioner 01/03/21 documented as of this encounter
--- OUTSIDE RECORDS SUMMARY | 2025-03-24 13:44 | XMS_ITS | Clinical Summary ---
Author Organization [facility] Address [address] [address] Phone Care Team Providers Care Software Applications Engineer Name Role Phone Florentino Lujan NP Primary Care Provider [phone] Allergies No known active allergies Medications atorvastatin [...] Sigmoidoscopy 09/05/2020 Influenza Vaccine (#1) [address] [facility] [place] [address] [facility] Care Teams Software Applications Engineer Relationship Specialty Start Date End Date Florentino Lujan NP [address] [place] [address] PCP - General Nurse Practitioner 01/03/21
--- OUTSIDE RECORDS SUMMARY | 2025-03-24 13:44 | XMS_ITS | Encounter Summary ---
Author Organization [facility] Address [address] [facility] [address] [place] [address] Phone Care Team Providers Care Dynamometer Tuner Name Role Phone Florentino Lujan NP Primary Care Provider [phone] Reason for Visit * Reason Comments Med Refill Encounter Details Date Type Department Care Team (Late st Contact Info) Description 05/07/2024 Refill [facility] [address] [facility] [address] [place] [phone] Uziel Hartley MD [address] [facility] [address] [place] [phone] Social History Tobacco Use Types Packs/Day Years [...] on filedocumented in this encounter Care Teams Dynamometer Tuner Relationship Specialty Start Date End Date Florentino Lujan NP [address] [place] [address] PCP - General Nurse Practitioner 01/03/21 documented as of this encounter
== END 2025-03-24 11:35 | disposition home or self-care (01) ==
LOC: HO.HKA 10:53
PROVIDERS: PCP Nurse Practitioner Family; Visit Provider Internal Medicine Nephrology
DX: I10 Essential (primary) hypertension (principal); N18.31 Chronic kidney disease, stage 3a
CPT/HCPCS: 99214

== ENCOUNTER 2025-03-31 08:31 | Outpatient (AMB) | payer OTHER, SELFPAY ==
[2025-03-31 08:38] VITALS: BMI 36.2
--- NOTE | 2025-03-31 08:38 | A.OFFVIS_ITS ---
VS Expanded 03/31/25 08:38 Height 5 ft 9 in Weight 244 lb 14.937 oz BMI 36.2 Intake Visit Reasons: T2DM Allergies No Known Allergies Allergy (Verified 03/24/25 10:57) Nutrition Presentation Details: Pt presents for MNT f/u for T2DM Pt reports not monitoring blood glucose, needs review on how to use glucometer, he did not bring glucometer to this appt B: core power , ham and cheese regrinder from [employer] (white bread), watewr L: vinee regrinder turkey lettuce /tomato frigo, watewr or soda d: pizza cheese , water salad with chicken , juice bananas, , has a fruit every other day physical activity: 10-15 minutes per day BS Monitoring Most Recent Diabetes Results: Microalb/Creat Ratio, (<30) 23.7 ug/mg cr 01/21/25 Cholesterol, (<200) 142 mg/dL 01/21/25 HDL Cholesterol, (>40) 29 mg/dL L 01/21/25 Triglycerides, (<150) 517 mg/dL H 01/21/25 Creatinine, (0.5-1.4) 1.72 mg/dL H 03/18/25 BUN, (9-16) 22 mg/dL H 03/18/25 Sodium, (135-145) 140 mmol/L 03/18/25 Potassium, (3.3-5.1) 4.1 mmol/L 03/18/25 Chloride, (96-108) 107 mmol/L 03/18/25 Carbon Dioxide, (22-29) 25 mmol/L 03/18/25 Calcium, (8.4-10.2) 8.6 mg/dL 01/21/25 AST, (5-37) 32 U/L 01/21/25 ALT, (0-40) 52 U/L H 01/21/25 Total Protein, (6.5-8.0) 6.9 g/dL 01/21/25 Albumin, (3.5-5.0) 4.5 g/dL 01/21/25 [facility] Medical History (Updated 02/11/25 @ 13:25 by Harshil Pelaez NP) Preoperative cardiovascular examination Encounter for routine adult physical exam with abnormal findings Diabetes Hypothyroid Elevated cholesterol Fatty liver CKD (chronic kidney disease) Essential hypertension Surgical History History of nasal surgery Family History Father Depression Cancer of prostate Mental health disorder Mother Cancer Leukemia Maternal Grandfather No problems noted. Maternal Grandmother No problems noted. Paternal Grandfather No problems noted. Paternal Grandmother No problems noted. 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 [employer] Current occupational exposures/hazards: Yes Cognitive needs: No Hearing needs: No Vision needs: No Assessment & Plan Assessment & Plan (1) Diabetes: Code(s): E11.9 - Type 2 diabetes mellitus without complications Category: Medical Plan: A1c 6.9% on 12/2024 Wt: 114 Kg (03/19 ), (08/18), 113 kg(02/18), 111 kg (04/20) Est kcal needs as per MSJ: 2700 -500 =2200 (40% carb, 30% protein/fat) Est fluid needs as per 25-30 ml/d: 3300 Est prot per day as per 1 g/kg bw: 110 Recommend fiber intake : 8-10 g per day and gradually increase to 25-28 g per day for women and 35-38 g for men or as tolerated Recommend sodium intake per day : less than 2300 mg Educated patient on: ( R = reviewed V = verbalizes understanding N/R = needs review N/A = not applicable * Food sources of carbohydrate, adequate serving sizes and its role in various health conditions: R * Differences between complex carbohydrates a simple carbohydrates, role of fiber in diet: R * Lean protein sources of foods: R * Differences between types of fats and role in diet (mono on saturated fat fatty acids, saturated fatty acids, trans fats): R * Food sources of sodium in salt and healthy modifications for heart health in kidney health: R * Vitamins and minerals: R in foods * Healthy plate method concept: R * hydration: choose low sugar/no sodium beverages ; 9-12 cups/day unless otherwise specified by MD * Physical activity: Benefits a precaution: R V * Hypoglycemia protocol (rule of 15): R V N/R * Dietary prevention of Hyperglycemia: R * Pt to watch video on how to utilize freestyle glucometer : Reviewed Patient Instructions: * Replace bread with a fruit for breakfast * Have water, fruit/herb infused water in place of soda (including diet sodas) * Continue working on reducing on fats (saturated fats: highly processed foods :cheese, including breaded/fried food items, salami and similar highly processed meats) * engage in at least 30 minutes walk daily Coding Level of Care Code Nutr Indiv Subseq (17116) Diagnoses Diabetes E11.9 Time Spent (min) 30
--- OUTSIDE RECORDS SUMMARY | 2025-03-31 08:44 | XMS_ITS | Clinical Summary ---
Author Organization [facility] Address [address] [address] Phone Care Team Providers Care Silk Opener Name Role Phone Florentino Lujan NP Primary Care Provider [phone] Allergies No known active allergies Medications atorvastatin [...] Sigmoidoscopy 09/05/2020 Influenza Vaccine (#1) [address] [facility] [place] [address] [facility] Care Teams Silk Opener Relationship Specialty Start Date End Date Florentino Lujan NP [address] [place] [address] PCP - General Nurse Practitioner 01/03/21
--- OUTSIDE RECORDS SUMMARY | 2025-03-31 08:44 | XMS_ITS | Encounter Summary ---
Author Organization [facility] Address [address] [facility] [address] [place] [address] Phone Care Team Providers Care Cloth Trimmer Hand Name Role Phone Florentino Lujan NP Primary Care Provider [phone] Reason for Visit * Reason Comments Med Refill Encounter Details Date Type Department Care Team (Late st Contact Info) Description 05/07/2024 Refill [facility] [address] [facility] [address] [place] [phone] Uziel Hartley MD [address] [facility] [address] [place] [phone] Social History Tobacco Use Types Packs/Day Years [...] on filedocumented in this encounter Care Teams Cloth Trimmer Hand Relationship Specialty Start Date End Date Florentino Lujan NP [address] [place] [address] PCP - General Nurse Practitioner 01/03/21 documented as of this encounter
--- OUTSIDE RECORDS SUMMARY | 2025-03-31 08:44 | XMS_ITS | Encounter Summary ---
Author Organization [facility] Address [address] [facility] [address] [place] [address] Phone Care Team Providers Care Teacher Preschool Name Role Phone Florentino Lujan NP Primary Care Provider [phone] Reason for Visit * Reason Onset Date Comments RX refill Carvedilol 04/16/2022 Encounter Details Date Type Department Care Team (Late st Contact Info) Description 04/16/2022 Telephone [facility] [address] [facility] [address] [address] [place] [phone] Nel Carranza Social History Tobacco Use Types [...] on filedocumented in this encounter Care Teams Teacher Preschool Relationship Specialty Start Date End Date Florentino Lujan NP [address] [place] [address] PCP - General Nurse Practitioner 01/03/21 documented as of this encounter
== END 2025-03-31 10:22 | disposition home or self-care (01) ==
LOC: HO.ENCR 08:32
PROVIDERS: PCP Nurse Practitioner Family; Visit Provider Dietitian, Registered
DX: E11.9 Type 2 diabetes mellitus without complications (principal)

== ENCOUNTER → 2025-03-31 08:31 | Outpatient (BNVA) | payer OTHER, SELFPAY | PROVIDERS: PCP Nurse Practitioner Family; Visit Provider Dietitian, Registered | DX: E11.9 Type 2 diabetes mellitus without complications (principal) | CPT/HCPCS: 97803 ==

== ENCOUNTER 2025-04-14 11:20 | Outpatient (AMB) | payer OTHER, SELFPAY ==
[2025-04-14 11:22] VITALS: BP 120/82; PULSE 86; RESP 16; TEMP 36.4; O2SAT 95; BMI 36.5
--- NOTE | 2025-04-14 11:22 | MHC.PC.OV ---
Vital Signs 04/14/25 11:22 Height 5 ft 9 in Weight 247 lb BMI 36.5 BP 120/82 Blood Pressure Location Lt brachial Position Sitting Respiration 16 Pulse 86 Pulse Source Pulse Oximeter Temp 97.6 F Pulse Oximetry (%) 95 Intake Visit Reasons: 6m f/u Pickers Material Handlers Required: No Accompanied by: Self / Same As Patient Allergies No Known Allergies Allergy (Verified 04/14/25 11:29) Medication List - Last Reconciled 04/14/25 by AVIVA Dunn- atorvastatin 80 mg PO DAILY blood sugar diagnostic (FreeStyle Lite Strips) Test blood sugar once a day blood-glucose meter (FreeStyle Lite Meter kit) As directed carvedilol 12.5 mg PO BID 30 days ezetimibe 10 mg PO DAILY fenofibrate 160 mg PO DAILY lancets (FreeStyle Lancets) Test blood sugar once a day levothyroxine 100 mcg PO DAILY losartan 100 mg PO DAILY metformin ER 500 mg PO BID spironolactone 50 mg (2 x 25 mg) PO DAILY 90 days Tobacco use date assessed: 04/14/25 Dental Screening Dental Screen Date: 04/14/25 Did you have a dental visit in the last 12 months?: Yes Did you have a dental problem in the last 6 months where you did not have access to dental care?: No Was dental information given to patient?: Patient has dentist HPI 6m f/u HPI Details Chief Complaint The patient presents for a follow-up visit for diabetes and review of recent lab results. History of Present Illness The patient is a 54-year-old male presenting for a follow-up for diabetes. He also sees an automatic blocker for his condition and reports that his eye exam is up to date. The patient denies any symptoms of neuropathy. Recent labs revealed elevated liver function tests. He has a history of fluctuating triglycerides and is currently taking atorvastatin 80 mg, ezetimibe, and fenofibrate. He was previously on omega-3 ethyl esters but stopped this medication due to insurance issues. The patient reports that he is working on his diet and has not consumed pasta in over a year. Elevated kidney function, follows up with nephrology Social History - Diet: The patient reports he is working on his diet and has avoided a specific food item for over a year. Health Maintenance - Diabetic eye exam: The patient reports his eye exam is up to date. - Diet: The patient reports he is working on his diet. Review of Systems - Neurological: Denies neuropathy. -denies any fevers, chills,N/V, CP, SOB, RUST , blurred vision Physical Exam General: Cooperative, healthy appearing, comfortable, no acute distress and well developed Orientation: Patient oriented x3 Limitations: No limitations Head: Normal to inspection Ears: Hearing grossly normal bilaterally Nose: Normal external nose present Face and sinus: Normal facial exam Eyes: Appearance normal, both eyes and all related structures, eye exam up to date Neck: Normal visual inspection and Yes full ROM Respiratory: Normal respiratory effort and able to speak in complete sentences. Clear to auscultation bilaterally Cardiovascular: Regular rate and rhythm. Normal S1 and S2 GI: Normal to inspection. Soft to palpation and nontender, diastasis rectus noted on exam Skin: No rashes or lesions noted Neuro: Patient oriented x3, positive sensation with use of monofilament to feet Extremities: Normal to inspection, feet intact except for left big toenail with small ecchymosis or small hematoma noted underneath nailbed Results - Labs: Recent labs show elevated liver function tests. - Labs: Triglycerides are noted to fluctuate. on generic lovaza previously, will most likely send vascepa in the furture. Plan 1. Diabetes Mellitus The patient presented for a follow-up visit for his diabetes, for which he also sees an automatic blocker. He denies neuropathy, and a foot exam was notable for positive sensation to monofilament testing. He is up to date with his eye exam. Continue current management. 2. Elevated Liver Function Tests Recent lab work showed elevated liver function. An abdominal ultrasound will be repeated for further evaluation. 3. Hypertriglyceridemia The patient's triglycerides are known to fluctuate. He is currently treated with atorvastatin 80 mg, ezetimibe, and fenofibrate. Labs, including a lipid panel, will be repeated to monitor his triglyceride levels. Depending on the results, restarting a medication from the omega-3 ethyl esters class, which was stopped previously due to insurance issues, may be considered. Discussion Notes I discussed that his recent labs showed elevated liver function, and to investigate this, I will order a repeat abdominal ultrasound. I explained that we will also repeat his labs, including a lipid panel, to monitor his fluctuating triglycerides. I noted he is on a comprehensive regimen with atorvastatin, ezetimibe, and fenofibrate, and that depending on future lab results, we may consider re-adding a medication similar to the omega-3s he took in the past. I acknowledged his dietary efforts. Patient Instructions - Please schedule an ultrasound of your abdomen. - You will need to have new lab work done, including a check of your cholesterol levels. - Continue with your current diet and medications. [facility] Medical History (Updated 04/14/25 @ 11:51 by Florentino Lujan, [facility]) Preoperative cardiovascular examination Encounter for routine adult physical exam with abnormal findings Diabetes Hypothyroid Elevated cholesterol Fatty liver CKD (chronic kidney disease) Essential hypertension Surgical History History of nasal surgery Family History Father Depression Cancer of prostate Mental health disorder Mother Cancer Leukemia Maternal Grandfather No problems noted. Maternal Grandmother No problems noted. Paternal Grandfather No problems noted. Paternal Grandmother No problems noted. 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 1. Little interest or pleasure in doing things: not at all 2. Feeling down, depressed, or hopeless: not at all 3. Trouble falling or staying asleep, or sleeping too much: not at all 4. Feeling tired or having little energy: not at all 5. Poor appetite or overeating: not at all 6. Feeling bad about yourself - or that you are a failure or have let yourself or your family down: not at all 7. Trouble concentrating on things, such as reading the newspaper or watching television: not at all 8. Moving or speaking so slowly that other people could have noticed. Or the opposite - being so fidgety or restless that you have been moving around a lot more than usual: not at all 9. Thoughts that you would be better off or of hurting yourself in some way: not at all Total score: 0 Source: Developed by Drs. Timothy Ibarra, Guerda Calderon, Marcos Mcgregor and colleagues, with an educational titi from [employer]. Thrive Questionnaire Date Thrive assessed: 10/07/24 I am a: Patient What is your living situation today?: I have a steady place to live Within the past 12 months, did the food you bought not last and you didn't have the money to get more?: Never true Within the past 12 months, did you worry whether your food would run out before you got money to buy more?: Never true Do you have trouble paying for medicines?: No Do you have trouble getting transportation to medical appointments?: No Do you have trouble paying your heating and electricity bill?: No Do you have trouble taking care of your child, family member or friend?: No Do you have trouble with day-to-day activities such as bathing, preparing meals, shopping, managing finances, etc.?: No Are you currently unemployed and looking for a job?: No Are you interested in more education?: No Please select the resources that you would like help with: None Currently or been in a relationship where the following occur: No concerns reported THRIVE Score: 0 ROYER-7 AMB Questionnaire ROYER-7 Date ROYER - 7 assessed: 10/07/24 Source: Developed by Drs. Timothy Ibarra, Guerda Calderon, Marcos Mcgregor and colleagues, with an educational titi from [employer]. Physical exam (Primary Care) BMI result Body Mass Index 36.5 Tobacco/Smoking Status: Tobacco use Status Tobacco use date assessed 10/07/24 10/07/24 14:27 Patient Tobacco Use Status Never used Tobacco 10/07/24 14:27 e-Cigarette/Vaping Use Never Used 10/07/24 14:24 Thrive Assessment: Date of Thrive Assessment Date Thrive assessed 10/07/24 02/04/25 11:40 Currently or been in a relationship where the following occur: No concerns reported Coding Level of Care Code Est Pt Level 4 (92690) Diagnoses Diabetes E11.9 Dyslipidemia E78.5 Elevated liver enzymes R74.8 Assessment & Plan Assessment & Plan (1) Diabetes: Code(s): E11.9 - Type 2 diabetes mellitus without complications Category: Medical (2) Dyslipidemia: Code(s): E78.5 - Hyperlipidemia, unspecified Category: Medical (3) Elevated liver enzymes: Code(s): R74.8 - Abnormal levels of other serum enzymes Category: Medical Plan . Orders: Orders AMB Hemoglobin A1c Today E11.9 - Type 2 diabetes mellitus without complications, Z13.9 - Encounter for screening, unspecified LDL Cholesterol Direct Today E11.9 - Type 2 diabetes mellitus without complications, E78.5 - Hyperlipidemia, unspecified Complete Blood Count Auto Diff Today E11.9 - Type 2 diabetes mellitus without complications, E78.5 - Hyperlipidemia, unspecified Comprehensive [place]. Panel Fast Today E11.9 - Type 2 diabetes mellitus without complications, E78.5 - Hyperlipidemia, unspecified Lipid Panel Today E11.9 - Type 2 diabetes mellitus without complications, E78.5 - Hyperlipidemia, unspecified US abdomen complete Today R74.8 - Abnormal levels of other serum enzymes
== END 2025-04-14 12:12 | disposition home or self-care (01) ==
LOC: HO.HMCC 11:21
PROVIDERS: PCP Nurse Practitioner Family; Visit Provider Nurse Practitioner Family
DX: E11.9 Type 2 diabetes mellitus without complications (principal); E78.5 Hyperlipidemia, unspecified; R74.8 Abnormal levels of other serum enzymes; Z13.9 Encounter for screening, unspecified; Z23 Encounter for immunization

== ENCOUNTER → 2025-04-14 11:20 | Outpatient (BNVA) | payer OTHER, SELFPAY | PROVIDERS: PCP Nurse Practitioner Family; Visit Provider Nurse Practitioner Family | DX: Z23 Encounter for immunization (principal); E11.9 Type 2 diabetes mellitus without complications; E78.5 Hyperlipidemia, unspecified; R74.8 Abnormal levels of other serum enzymes | CPT/HCPCS: 83036; 90471; 90656; 96127 ==

== ENCOUNTER 2025-05-11 11:23 | Outpatient (REF) | payer OTHER, SELFPAY ==
[2025-05-11 13:39] LABS: MANUAL DIFF FLAG NO
[2025-05-11 13:47] LABS: Hematocrit 43.4 % (42.0-52.0); Hemoglobin 14.4 g/dl (14.0-18.0); Imm Gran Abs Auto 0.05 X10*3/uL (0.00-0.03); Imm Gran Pct Auto 0.7 % (0.0-0.4); Lymphocytes Absolute Auto 1.8 X10*3/uL (1.2-4.9); Mean Corpuscular HGB Conc 33.2 g/dl (31.0-36.0); Mean Corpuscular Hemoglobin 27.9 pg (27.0-33.0); Mean Corpuscular Volume 83.9 fL (80.0-98.0); NRBC Abs Auto 0.000 X10*3/uL (0.0-0.012); NRBC Pct Auto 0.0 /100WBC (0.0-0.2); Platelet Count 219 X10*3/uL (160-400); Red Blood Count 5.17 X10*6/uL (4.60-5.80); White Blood Count 6.7 X10*3/uL (4.8-10.8)
[2025-05-11 15:28] LABS: Alanine Aminotransferase 40 U/L (0-40); Albumin Level 4.6 g/dL (3.5-5.0); Alkaline Phosphatase 39 U/L (39-117); Anion Gap 10 (12-20); Aspartate Amino Transferase 26 U/L (5-37); Blood Urea Nitrogen 19 mg/dL (9-16); Calcium 9.1 mg/dL (8.4-10.2); Carbon Dioxide 27 mmol/L (22-29); Chloride 105 mmol/L (96-108); Cholesterol 145 mg/dL (<200); Estimated Glomerular Filt Rate 47; HDL Cholesterol 30 mg/dL (>40); Potassium 4.3 mmol/L (3.3-5.1); Sodium 138 mmol/L (135-145); Total Protein 6.8 g/dL (6.5-8.0); Triglycerides 315 mg/dL (<150)
== END 2025-05-11 11:24 | disposition home or self-care (01) ==
LOC: HO.HMGCLDS 11:23
PROVIDERS: PCP Nurse Practitioner Family; Visit Provider Nurse Practitioner Family
DX: E11.9 Type 2 diabetes mellitus without complications (principal); E78.5 Hyperlipidemia, unspecified
CPT/HCPCS: 36415; 80053; 80061; 83721; 85025

== ENCOUNTER 2025-05-24 09:18 | Outpatient (REF) | payer OTHER, SELFPAY ==
--- OUTSIDE RECORDS SUMMARY | 2025-05-24 09:42 | XMS_ITS | Encounter Summary ---
Author Organization [facility] Address [address] [facility] [address] [place] [address] Phone Care Team Providers Care Vulcanizing Machine Operator Name Role Phone Florentino Lujan NP Primary Care Provider [phone] Reason for Visit * Reason Comments Med Refill Encounter Details Date Type Department Care Team (Late st Contact Info) Description 05/07/2024 Refill [facility] [address] [place] [phone] Uziel Hartley MD [address] [facility] [address] [place] [phone] Social History Tobacco Use Types Packs/Day Years [...] on filedocumented in this encounter Care Teams Vulcanizing Machine Operator Relationship Specialty Start Date End Date Florentino Lujan NP [address] [place] [address] PCP - General Nurse Practitioner 01/03/21 documented as of this encounter
--- OUTSIDE RECORDS SUMMARY | 2025-05-24 09:42 | XMS_ITS | Clinical Summary ---
Author Organization [facility] Address [address] [address] Phone Care Team Providers Care Appeals Specialist Name Role Phone Florentino Luajn NP Primary Care Provider [phone] Allergies No known active allergies Medications atorvastatin [...] Sigmoidoscopy 09/05/2020 Influenza Vaccine (#1) [address] [facility] [place] [address] [facility] Care Teams Appeals Specialist Relationship Specialty Start Date End Date Florentino Lujan NP [address] [place] [address] PCP - General Nurse Practitioner 01/03/21
--- OUTSIDE RECORDS SUMMARY | 2025-05-24 09:42 | XMS_ITS | Encounter Summary ---
Author Organization [facility] Address [address] [facility] [address] [place] [address] Phone Care Team Providers Care Occupational Therapy Supervisor Name Role Phone Florentino Lujan NP Primary Care Provider [phone] Reason for Visit * Reason Onset Date Comments RX refill Carvedilol 04/16/2022 Encounter Details Date Type Department Care Team (Late st Contact Info) Description 04/16/2022 Telephone [facility] [address] [facility] [address] [place] [phone] Nel Carranza Social History Tobacco Use Types [...] on filedocumented in this encounter Care Teams Occupational Therapy Supervisor Relationship Specialty Start Date End Date Florentino Lujna NP [address] [place] [address] PCP - General Nurse Practitioner 01/03/21 documented as of this encounter
[2025-05-24 11:00] LABS: Anion Gap 11 (12-20); Blood Urea Nitrogen 19 mg/dL (9-16); Carbon Dioxide 25 mmol/L (22-29); Chloride 109 mmol/L (96-108); Estimated Glomerular Filt Rate 44; Potassium 4.4 mmol/L (3.3-5.1); Sodium 141 mmol/L (135-145)
== END 2025-05-24 09:19 | disposition home or self-care (01) ==
LOC: HO.HMGCLDS 09:18
PROVIDERS: PCP Nurse Practitioner Family; Visit Provider Internal Medicine Nephrology
DX: I12.9 Hypertensive chronic kidney disease with stage 1 through stage 4 chronic kidney disease, or unspecified chronic kidney disease (principal); N18.31 Chronic kidney disease, stage 3a
CPT/HCPCS: 36415; 80051; 82565; 84520

== ENCOUNTER 2025-05-25 11:05 | Outpatient (AMB) | payer OTHER, SELFPAY ==
[2025-05-25 11:27] VITALS: BP 132/94; PULSE 76; O2SAT 96; BMI 37.1
--- NOTE | 2025-05-25 11:27 | HO.NEPHOV_ITS ---
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 He is known to have polycystic kidney disease. He does not have any flank pain, hematuria, renal stones, urinary infections, hematuria, pedal edema, nausea, vomiting, diarrhea, chest pain, shortness of breath, proximal nocturnal dyspnea or orthopnea. He is compliant with medications. He does not take any nonsteroidal anti-inflammatories. All the systems were reviewed and were n egative. [facility] Medical History (Updated 04/14/25 @ 11:51 by Florentino Lujan, [facility]) Preoperative cardiovascular examination Encounter for routine adult physical exam with abnormal findings Diabetes Hypothyroid Elevated cholesterol Fatty liver CKD (chronic kidney disease) Essential hypertension Surgical History History of nasal surgery Family History Father Depression Cancer of prostate Mental health disorder Mother Cancer Leukemia Maternal Grandfather No problems noted. Maternal Grandmother No problems noted. Paternal Grandfather No problems noted. Paternal Grandmother No problems noted. 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 Current occupational exposures/hazards: Yes Cognitive needs: No Hearing needs: No Vision needs: No Review of Systems Const All systems reviewed & are unremarkable except as noted in HPI and below Physical Exam Vital Signs: Last Vital Signs Pulse 76 05/25/25 11:27 BP 132/94 H 05/25/25 11:27 Pulse Ox 96 05/25/25 11:27 Oxygen Delivery Method Room Air 05/25/25 11:27 BMI result Body Mass Index 37.1 Const General: comfortable and no acute distress Orientation/consciousness: patient oriented x3 HEENT Head: Yes normocephalic Mouth: Normal oral and palatal mucosa present Eyes EOM: EOMs intact bilaterally Neck Neck: Yes supple Resp Auscultation: clear to auscultation bilaterally Cardio Jugular venous distension: no JVD Rate: regular rate GI Palpation (GI): Soft to palpation Auscultation: normal bowel sounds General: Yes no CVA tenderness Back/Spine/Pelvis Back: no CVA tenderness Skin General skin exam: no rashes or lesions noted Neuro General: patient oriented x3 and moves all extremities Extrem General: Yes no pedal edema Results Reviewed Nephrology Results: Hgb, (14.0-18.0) 14.4 g/dl 05/11/25 WBC, (4.8-10.8) 6.7 X10*3/uL 05/11/25 Plt Count, (160-400) 219 X10*3/uL 05/11/25 Sodium, (135-145) 141 mmol/L 05/24/25 Potassium, (3.3-5.1) 4.4 mmol/L 05/24/25 Chloride, (96-108) 109 mmol/L H 05/24/25 Carbon Dioxide, (22-29) 25 mmol/L 05/24/25 BUN, (9-16) 19 mg/dL H 05/24/25 Creatinine, (0.5-1.4) 1.66 mg/dL H 05/24/25 Calcium, (8.4-10.2) 9.1 mg/dL 05/11/25 Urine Creatinine 101.31 mg/dL 03/18/25 Protein/Creatinin Ratio TNP 03/18/25 Assessment & Plan Assessment & Plan (1) CKD (chronic kidney disease) stage 3, GFR 30-59 ml/min: Code(s): N18.30 - Chronic kidney disease, stage 3 unspecified Category: Medical Qualifiers: Chronic kidney disease stage 3 subtype: stage 3a (GFR 45-59) Qualified Code(s): N18.31 - Chronic kidney disease, stage 3a (2) Essential hypertension: Code(s): I10 - Essential (primary) hypertension Category: Medical Plan Francisco has polycystic kidney disease. His blood pressure is currently at goal. He does not take any nonsteroidal anti-inflammatories. He tries to maintain good hydration. He has not had any symptoms suggestive of any cyst rupture, cyst infection or renal stones. He needs to lose weight. He should remain well hydrated and minimize nonsteroidal anti-inflammatories. He may potentially be a candidate for tolvaptan in the future. He will benefit from Farxiga/Jardiance. I shall back off on ARB if his serum creatinine does not settle to baseline. He has not had any gene testing for PKD yet. All questions answered. Follow-up given Orders: Orders Creatinine 3 Months N18.31 - Chronic kidney disease, stage 3a Blood Urea Nitrogen 3 Months N18.31 - Chronic kidney disease, stage 3a Electrolytes 3 Months N18.31 - Chronic kidney disease, stage 3a Coding Level of Care Code Est Pt Level 4 (27062) Diagnoses Stage 3a chronic kidney disease N18.31 Chronic kidney disease stage 3 subtype: stage 3a (GFR 45-59) Essential hypertension I10
--- OUTSIDE RECORDS SUMMARY | 2025-05-25 15:05 | XMS_ITS | Clinical Summary ---
Author Organization [facility] Address [address] [address] Phone Care Team Providers Care Honey Liquefier Name Role Phone Florentino Lujan NP Primary Care Provider [phone] Allergies No known active allergies Medications atorvastatin [...] Sigmoidoscopy 09/05/2020 Influenza Vaccine (#1) 2025 Insurance [facility] [place] [address] [facility] Care Teams Honey Liquefier Relationship Specialty Start Date End Date Florentino Lujan NP [address] [place] [address] PCP - General Nurse Practitioner 01/03/21
--- OUTSIDE RECORDS SUMMARY | 2025-05-25 15:05 | XMS_ITS | Encounter Summary ---
Author Organization [facility] Address [address] [facility] [address] [place] [address] Phone Care Team Providers Care Consultant Internship Name Role Phone Florentino Lujan NP Primary Care Provider [phone] Reason for Visit * Reason Comments Med Refill Encounter Details Date Type Department Care Team (Late st Contact Info) Description 05/07/2024 Refill [facility] [address] [place] [phone] Uziel Hartley MD [address] [facility] [address] [place] [phone] Social History Tobacco Use Types Packs/Day Years [...] on filedocumented in this encounter Care Teams Consultant Internship Relationship Specialty Start Date End Date Florentino Lujan NP [address] [place] [address] PCP - General Nurse Practitioner 01/03/21 documented as of this encounter
--- OUTSIDE RECORDS SUMMARY | 2025-05-25 15:05 | XMS_ITS | Encounter Summary ---
Author Organization [facility] Address [address] [place] [address] Phone Care Team Providers Care Asphalt Smoother Name Role Phone Florentino Lujan NP Primary Care Provider [phone] Reason for Visit * Reason Onset Date Comments RX refill Carvedilol 04/16/2022 Encounter Details Date Type Department Care Team (Late st Contact Info) Description 04/16/2022 Telephone [facility] [address] [place] [phone] Nel Carranza Social History Tobacco Use Types [...] on filedocumented in this encounter Care Teams Asphalt Smoother Relationship Specialty Start Date End Date Florentino Lujan NP [address] [place] [address] PCP - General Nurse Practitioner 01/03/21 documented as of this encounter
== END 2025-05-25 11:48 | disposition home or self-care (01) ==
LOC: HO.HKAS 11:06
PROVIDERS: PCP Nurse Practitioner Family; Visit Provider Internal Medicine Nephrology
DX: N18.31 Chronic kidney disease, stage 3a (principal); I10 Essential (primary) hypertension
CPT/HCPCS: 99214